=== PATIENT | male | born 1940 | race African-American/Black ===

== ENCOUNTER 2021-03-14 08:25 | Emergency (ER) | payer OTHER ==
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
--- NOTE | 2021-03-14 09:32 | RAD REPORT ---
EXAM DESCRIPTION: CT - Thorax Wo Con CLINICAL HISTORY: Chest pain fall injury;Pain COMPARISON: No comparisons FINDINGS: The lungs are clear. Small amount of right pleural fluid. No pneumothorax. Mildly to moderately displaced fractures of the right posterior tenth, eleventh and twelfth ribs. Non displaced hairline fracture of the right posterior ninth rib also likely present. Gallstones are present gallbladder. All CT scans are performed using dose optimization technique as appropriate and may include automated exposure control or mA/KV adjustment according to patient size. IMPRESSION: Right-sided posterior rib fractures as detailed above without pneumothorax.
--- NOTE | 2021-03-14 10:01 | ER ---
Nurse's Notes [facility] Name: Brian Manning Jr Age: 80 yrs Sex: Male : 1940 Arrival Date: 03/14/2021 Time: 08:28 Bed 18 Private MD: Jeannine Mahajan Diagnosis: Multiple fractures of ribs, right side Presentation: 03/14 08:43 Chief complaint: Patient states: L shoulder and R lateral chest wall pain after falling ss from standing position in restroom last night. Coronavirus screen: Client denies travel out of the [place] in the last 14 days. Ebola Screen: Patient denies exposure to infectious person. Patient denies travel to an Ebola-affected area in the 21 days before illness onset. Initial Sepsis Screen: Does the patient meet any 2 criteria? No. Patient's initial sepsis screen is negative. Does the patient have a suspected source of infection? No. Patient's initial sepsis screen is negative. Risk Assessment: Do you want to hurt yourself or someone else? Patient reports no desire to harm self or others. Onset of symptoms was March 13, 2021. 08:43 Method Of Arrival: Wheelchair ss 08:43 Acuity: COLLEEN 4 ss Triage Assessment: 08:45 General: Appears distressed, uncomfortable, Behavior is calm, cooperative, appropriate bp for age. Pain: Complains of pain in right lateral posterior chest and right lateral anterior chest. EENT: PT BLIND AT BASELINE. Neuro: No deficits noted. Cardiovascular: No deficits noted. Respiratory: No deficits noted. GI: No signs and/or symptoms were reported involving the gastrointestinal system. : No signs and/or symptoms were reported regarding the genitourinary system. Derm: No deficits noted. Musculoskeletal: No deficits noted. Historical: - Allergies: 08:46 No Known Allergies; ss - Immunization history:: Adult Immunizations up to date, Client reports receiving the 2nd dose of the Covid vaccine. - Social history:: Smoking status: Patient denies any tobacco usage or history of. Screenin:45 Abuse screen: Denies threats or abuse. Denies injuries from another. Nutritional bp screening: No deficits noted. Tuberculosis screening: No symptoms or risk factors identified. Fall Risk None identified. Assessment: 08:45 General: SEE TRIAGE NOTE. bp 10:19 Reassessment: PT D/C HOME VIA W/C WITH FAMILY, DX WITH RIB FX. bp Vital Signs: 08:43 BP 160 / 71; Pulse 71; Resp 16; Temp 99.7(O); Pulse Ox 100% on R/A; Height 6 ft. 3 in. ss (190.50 cm); Pain 10/10; 10:15 BP 149 / 73; Pulse 78; Resp 16; Temp 99.5; Pulse Ox 100% ; bp ED Course: 08:28 Patient arrived in ED. mr 08:29 Jeannine Mahajan is Private Physician. mr 08:31 Frank Ramires MD is Attending Physician. rn 08:31 [facility] jrDonaldo 08:34 Manish Castro, RN is Primary Nurse. bp 08:45 Patient has correct armband on for positive identification. Bed in low position. Call bp light in reach. Side rails up X2. 08:45 No provider procedures requiring assistance completed. Patient did not have IV access bp during this emergency room visit. 08:46 Triage completed. ss 08:46 Arm band placed on right wrist. ss 09:10 CT Chest Wo Con In Process Unspecified. EDMS 10:01 Jeannine Mahajan is Referral Physician. jr8 Administered Medications: No medications were administered Outcome: 10:01 Discharge ordered by . jrDonaldo 10:23 Discharged to home via wheelchair, with family. bp 10:23 Condition: stable 10:23 Discharge instructions given to patient, family, Instructed on discharge instructions, follow up and referral plans. Demonstrated understanding of instructions, follow-up care. 10:23 Patient left the ED. bp Signatures: Dispatcher [employer] EDTX Esha Long mr Frank Ramires MD MD rn Smirch, Shelby, RN RN Sonny Murray PA PA jr8 Manish Castro, VASILE RN bp
--- NOTE | 2021-03-14 10:02 | EDPHYS ---
Physician Documentation [facility] Name: Brian Manning Jr Age: 80 yrs Sex: Male : 1940 Arrival Date: 03/14/2021 Time: 08:28 Bed 18 Private MD: Jeannine Mahajan ED Physician Frank Ramires HPI: 03/14 09:11 This 80 yrs old Black Male presents to ER via Wheelchair with complaints of Fall Injury.jr8 09:11 Details of fall: The patient fell from an upright position, while standing. Onset: The jr8 symptoms/episode began/occurred acutely, last night. Associated injuries: The patient sustained injury to the chest, specifically the right lateral anterior chest and right lateral posterior chest, tenderness. Severity of symptoms: At their worst the symptoms were mild, in the emergency department the symptoms are unchanged. The patient has not experienced similar symptoms in the past. The patient has not recently seen a physician. Patient stated that he tripped causing mechanical fall in bathroom. Hit right side of ribs.. Pain since incident that is not getting better. Historical: - Allergies: 08:46 No Known Allergies; ss - Immunization history:: Adult Immunizations up to date, Client reports receiving the 2nd dose of the Covid vaccine. - Social history:: Smoking status: Patient denies any tobacco usage or history of. ROS: 09:11 Eyes: Negative for injury, pain, redness, and discharge, ENT: Negative for injury, jr8 pain, and discharge, Neck: Negative for injury, pain, and swelling, Respiratory: Negative for shortness of breath, cough, wheezing, and pleuritic chest pain, Abdomen/GI: Negative for abdominal pain, nausea, vomiting, diarrhea, and constipation, Back: Negative for injury and pain, MS/Extremity: Negative for injury and deformity, Skin: Negative for injury, rash, and discoloration, Neuro: Negative for headache, weakness, numbness, tingling, and seizure. 09:11 Cardiovascular: Positive for chest pain, with cough, with movement. Exam: 09:11 Constitutional: This is a well developed, well nourished patient who is awake, alert, jr8 and in no acute distress. Head/Face: Normocephalic, atraumatic. Neck: Trachea midline, no thyromegaly or masses palpated, and no cervical lymphadenopathy. Supple, full range of motion without nuchal rigidity, or vertebral point tenderness. No Meningismus. Cardiovascular: Regular rate and rhythm with a normal S1 and S2. No gallops, murmurs, or rubs. Normal PMI, no JVD. No pulse deficits. Respiratory: Lungs have equal breath sounds bilaterally, clear to auscultation and percussion. No rales, rhonchi or wheezes noted. No increased work of breathing, no retractions or nasal flaring. Abdomen/GI: Soft, non-tender, with normal bowel sounds. No distension or tympany. No guarding or rebound. No evidence of tenderness throughout. Back: No spinal tenderness. No costovertebral tenderness. Full range of motion. Skin: Warm, dry with normal turgor. Normal color with no rashes, no lesions, and no evidence of cellulitis. MS/ Extremity: Pulses equal, no cyanosis. Neurovascular intact. Full, normal range of motion. Neuro: Awake and alert, GCS 15, oriented to person, place, time, and situation. Cranial nerves II-XII grossly intact. Motor strength 5/5 in all extremities. Sensory grossly intact. Cerebellar exam normal. Normal gait. 09:11 Chest/axilla: Inspection: normal, Palpation: tenderness, that is moderate, of the right lateral anterior chest and right lateral posterior chest. Vital Signs: 08:43 BP 160 / 71; Pulse 71; Resp 16; Temp 99.7(O); Pulse Ox 100% on R/A; Height 6 ft. 3 in. ss (190.50 cm); Pain 10/10; 10:15 BP 149 / 73; Pulse 78; Resp 16; Temp 99.5; Pulse Ox 100% ; bp MDM: 08:32 Patient medically screened. jr8 10:01 Data reviewed: vital signs, nurses notes, radiologic studies, CT scan. Data jr8 interpreted: Pulse oximetry: on room air is 100 %. Interpretation: normal. Counseling: I had a detailed discussion with the patient and/or guardian regarding: the historical points, exam findings, and any diagnostic results supporting the discharge/admit diagnosis, radiology results, the need for outpatient follow up, a family practitioner, to return to the emergency department if symptoms worsen or persist or if there are any questions or concerns that arise at home. 07/12 08:45 Order name: CT Chest Wo Con; Complete Time: 09:33 jr8 03/14 10:02 Order name: Misc. Order: Incentive Spirometry; Complete Time: 10:19 jr8 Administered Medications: No medications were administered Disposition: 16:56 Co-signature as Attending Physician, Frank Ramires MD. rn Disposition Summary: 03/14/21 10:01 Discharge Ordered Location: Home jr Problem: new jr8 Symptoms: have improved jr8 Condition: Stable jr8 Diagnosis - Multiple fractures of ribs, right side jr8 Followup: jr8 - With: Jeannine Mahajan - When: 5 - 6 days - Reason: Recheck today's complaints, Continuance of care, Re-evaluation by your physician Discharge Instructions: - Discharge Summary Sheet jr8 - Rib Fracture jr8 Forms: - Medication Reconciliation Form jr8 - Thank You Letter jr8 - Antibiotic Education jr8 - Prescription Opioid Use jr8 Signatures: Dispatcher [employer] Frank Clancy MD MD rn Smirch, Shelby, RN RN ss Roszak, Josh, PA PA jr8
[2021-03-14 10:29] VITALS: O2SAT 100
[2021-03-14 10:30] VITALS: BP 149/73; TEMP 99.5
== END 2021-03-14 10:23 | disposition home or self-care (01) ==
LOC: ER 08:25
DX: S22.41XA Multiple fractures of ribs, right side, initial encounter for closed fracture (principal); W01.198A Fall on same level from slipping, tripping and stumbling with subsequent striking against other object, initial encounter
CPT/HCPCS: 71250; 99283

== ENCOUNTER 2021-11-19 16:21 | Emergency (ER) | payer OTHER ==
--- OUTSIDE RECORDS SUMMARY | 2021-11-19 16:25 | XMS REPORT | Continuity of Care Document ---
:1940 Author Organization [facility] t Address [address] [place] [address] Care Team Providers Name Role Phone Michelle Rhodes Attending Clinician Unavailable Problems Condition Condition Condition Status Onset Resolution Last Treating Co mments Source Name Details Category Date Date Treatment Clinician Date Uncontroll Uncontroll Problem Active C HI St ed type 2 ed type 2 Luke s - diabetes diabetes Memori a mellitus mellitus l with with Outpati hyperglyce hyperglyce en t [facility] History of History of Problem Active [...] [place] kes - on on [facility] Diabetes Diabetes Problem Active [facility] [place] [facility] Wandering Wandering Problem [facility] 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 [facility] - eyes eyes Memoria l Outpati ent Clinics 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 [facility] s - [facility] Medicare Medicare Diagnosis Active [facility] annual annual [facility] - wellness wellness Memori a visit, visit, l subsequent subsequent Ou tpati ent Clinics Allergies, Adverse Reactions, Alerts This [...] 00:00: (dispense Memoria 00 lancets l formulary Outpati to ent insurance) Clinics Blood Blood Yes Michelle as [facility] Glucose Glucose 1-09 Millender directed [facility] - Monitor Monitor 00:00: (DISPENSE Me moria 00 BLOOD l GLUCOSE Outpati MONITOR ent FORMULARY Clinics TO INSURANCE) Furosemide Furosemide 2018-09 Yes Michelle [address] [facility] 0-30 [place] as needed [facility] - 00:00: for leg Memoria 00 [facility] Lisinopril Lisinopril 2018-09 Yes Michelle [address] [facility] 0-09 Millender [facility] - 00[facility]00: Memoria 00 [facility] GlipiZIDE GlipiZIDE Yes Michelle [address] Millender [facility] - [facility] l [facility] ent Clinics Metformin Metformin Yes Michelle [address] HCl HCl Millender with a Lukes - meal [facility] atorvastati atorvastati 2020- No Michelle [address] [facility] n n -14 Millender in evening William es - 00:00 Memoria :00 [facility] Procedures This patient has no known procedures. Encounters Start End Encounter Admission Attending Care Care Encounter Source Date/Time Date/Time Type Type Clinicians Facility Department ID [facility] [id number] Michelle [id number] [facility] ent Clinics 2021-09-[address] [facility] [id number] 11:17:13 Michelle [id number] [facility] Clinics 2021-09-28 Outpatient CHANNING Rhodes [facility] [id number] [facility] 11:07:29 Michelle [id number] [facility] Clin[facility] 2021-09-28 Outpatient CHANNING Rhodes [facility] [id number] [facility] 10:59:22 Michelle [id number] [facility] 2021-09-28 Outpatient CHANNING Rhodes [facility] [id number] [facility] 10:59:02 Michelle [id number] [facility] 2020-05-17 2020-05-17 [facility] [id number] 09:20:00 09:20:00 t [facility] l Medicine Outpati ent Clinics 2020-05-17 2020-05-17 [facility] [id number] 09:00:00 09:00:00 t [facility] Medicine Outpati ent Clinics 2020-05-13 2020-05-13 [facility] [id number] 09:46:00 09:46:00 t [employer] [place] [facility] l Medicine Outpati ent Clinics 2019-12-11 2019-12-11 [facility] [id number] 11:30:00 11:30:00 t [facility] Medicine Outpati ent Clinics 2019-09-11 2019-09-11 [facility] [id number] 10:30:00 10:30:00 t [facility] Medicine Outpati ent Clinics 2019-07-13 2019-07-13 [facility] [id number] 23:31:00 23:31:00 t [facility] Medicine Outpati ent Clinics 2019-07-02 2019-07-02 [facility] [id number] 15:00:00 15:00:00 t [facility] Medicine Outpati ent Clinics 2019-06-11 2019-06-11 [facility] [id number] 09:00:00 09:00:00 [facility] Medicine Outpati ent Clinics Results This patient has no known results.
[2021-11-19 17:12] LABS: Absolute Lymphocytes (CBC) 1.2 K/uL (0.7-4.9); Hematocrit 34.5 % (39.6-49.0); Lymphocytes % 20.5 % (15.3-44.8); MPV 7.5 fL (7.6-11.3); RBC Red Blood Cell Count 3.92 M/uL (4.33-5.43)
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
[2021-11-19 17:27] LABS: Potassium 3.8 mmol/L (3.5-5.1)
--- NOTE | 2021-11-19 17:58 | RAD REPORT ---
EXAM DESCRIPTION: RAD - Humerus Left - 11/19/2021 5:43 pm CLINICAL HISTORY: PAIN COMPARISON: No comparisons FINDINGS: Left surgical neck fracture of the humerus. No other fracture of the humerus identified. IMPRESSION: Left surgical neck humerus fracture.
--- NOTE | 2021-11-19 17:58 | RAD REPORT ---
EXAM DESCRIPTION: RAD - Shoulder Left 2 View - 11/19/2021 5:43 pm CLINICAL HISTORY: PAIN COMPARISON: No comparisons FINDINGS/IMPRESSION: Left surgical neck of the humerus fracture with approximately 1/3 shaft width o f medial displacement. No dislocation is identified. No other fractures.
--- NOTE | 2021-11-19 18:30 | EDPHYS ---
Physician Documentation [facility] Name: Brian Manning Jr Age: 81 yrs Sex: Male : 1940 Arrival Date: 11/19/2021 Time: 16:28 Bed 17 Private MD: ED Physician Shahida Mills HPI: 11/19 16:43 This 81 yrs old Black Male presents to ER via EMS with complaints of Fall injury. pm1 16:43 The patient or guardian reports abrasion. The complaints affect the forehead. Context pm1 of injury: The problem was sustained at home, resulted from Fall out of chair. Onset: The symptoms/episode began/occurred just prior to arrival. Associated signs and symptoms: Loss of consciousness: This patient did not experience any loss of consciousness. Pertinent positives: headache, Pertinent negatives: nausea, neck pain, vomiting, chest pain, shortness of breath, LOC. Severity of symptoms:. The patient has not experienced similar symptoms in the past. The patient has not recently seen a physician. Patient is also complaining of left shoulder pain. Patient fell on left side while sitting on his chair resulting in abrasion to forehead and left shoulder pain. Historical: - Allergies: 11/20 03:57 No Known Allergies; sv1 - Immunization history:: Adult Immunizations up to date, . - Social history:: Smoking status: unknown. ROS: 11/19 16:43 Constitutional: Negative for fever, chills, and weight loss, Neck: Negative for injury, pm1 pain, and swelling, Cardiovascular: Negative for chest pain, palpitations, and edema, Respiratory: Negative for shortness of breath, cough, wheezing, and pleuritic chest pain, Abdomen/GI: Negative for abdominal pain, nausea, vomiting, diarrhea, and constipation. Skin: Negative for injury, rash, and discoloration, Neuro: Negative for headache, weakness, numbness, tingling, and seizure. MS/extremity: Positive for pain, of the forehead and left shoulder. All other systems are negative. Exam: 16:43 Constitutional: This is a well developed, well nourished patient who is awake, alert, pm1 and in no acute distress. 16:43 Back: No spinal tenderness. No costovertebral tenderness. Full range of motion. Skin: Warm, dry with normal turgor. Normal color with no rashes, no lesions, and no evidence of cellulitis. 16:43 Head/face: Noted is no obvious of injury or deformity except abrasion(s), that are mild, of the forehead. 16:43 Neck: Exam negative for acute changes, External neck: is normal, no acute changes, C-spine: vertebral tenderness, is not appreciated. 16:43 Chest/axilla: Exam negative for acute changes, Inspection: normal, Palpation: is normal, no crepitus, no tenderness. 16:43 Cardiovascular: Exam negative for acute changes, Rate: normal, Rhythm: regular, Pulses: no pulse deficits are appreciated, Heart sounds: normal, normal S1and S2. 16:43 Respiratory: Exam negative for acute changes, respiratory distress, shortness of breath, Breath sounds: are clear throughout. 16:43 Abdomen/GI: Inspection: abdomen appears normal, Palpation: abdomen is soft and non-tender, in all quadrants. 16:43 Musculoskeletal/extremity: Extremities: grossly normal except: noted in the anterior aspect of left shoulder: tenderness. 16:43 Neuro: Exam negative for acute changes, Orientation: is normal, Mentation: is normal, Motor: is normal, moves all fours. Vital Signs: 16:28 BP 167 / 69; Resp 16; Temp 97.8; Pulse Ox 98% ; Weight 81.65 kg; Height 5 ft. 10 in. cb5 (177.80 cm); Pain 2/10; 19:30 BP 156 / 78 LA Sitting (auto/reg); Pulse 56 MON; Resp 16 S; Pulse Ox 100% on R/A; Pain sv1 6/10; 16:28 Body Mass Index 25.83 (81.65 kg, 177.80 cm) cb5 Lizabeth Coma Score: 16:43 Eye Response: spontaneous(4). Verbal Response: oriented(5). Motor Response: obeys pm1 commands(6). Total: 15. MDM: 16:31 Patient medically screened. pm1 18:28 Data reviewed: vital signs. Data interpreted: Pulse oximetry: on room air is 98 %. pm1 Interpretation: normal. Counseling: I had a detailed discussion with the patient and/or guardian regarding: the historical points, exam findings, and any diagnostic results supporting the discharge/admit diagnosis, lab results, radiology results, the need for outpatient follow up, a orthopedic surgeon, to return to the emergency department if symptoms worsen or persist or if there are any questions or concerns that arise at home. 11/19 16:42 Order name: CBC with Diff pm1 11/19 16:42 Order name: BMP; Complete Time: 17:52 pm1 11/19 16:42 Order name: CT Head Brain wo Cont; Complete Time: 17:52 pm1 11/19 16:42 Order name: Shoulder Left (2 View) XRAY; Complete Time: 18:04 pm1 11/19 16:42 Order name: CBC with Automated Diff; Complete Time: 17:52 EDMS 11/19 17:20 Order name: Humerus Left XRAY; Complete Time: 18:04 pm1 11/19 16:42 Order name: IV Saline Lock; Complete Time: 16:56 pm1 11/19 16:42 Order name: EKG; Complete Time: 16:43 pm1 11/19 16:42 Order name: EKG - Nurse/Tech; Complete Time: 16:56 pm1 11/19 18:05 Order name: Sling; Complete Time: 03:54 pm1 11/19 18:27 Order name: Wound Care; Complete Time: 03:53 pm1 Administered Medications: 18:51 Drug: Tetanus-Diphtheria Toxoid Adult 0.5 ml {Cold Work Operator: [employer]. Exp: cb5 01/21/2023. Lot #: [id number]. } Route: IM; Site: left deltoid; 11/20 03:53 Follow up: Response: No adverse reaction 1 11/19 18:51 Drug: NS 0.9% 500 ml Route: IV; Rate: bolus; Site: left antecubital; [facility] 11/20 03:53 Follow up: IV Status: Completed infusion 1 11/19 18:51 Drug: Tylenol #3 (300 mg-30 mg) 1 tablet Route: PO; [facility] 11/20 03:53 Follow up: Response: No adverse reaction; Pain is decreased sv1 Disposition Summary: 11/19/21 18:30 Discharge Ordered Location: Home pm1 Problem: new pm1 Symptoms: have improved pm1 Condition: Stable pm1 Diagnosis - Fracture of upper end of humerus pm1 - Abrasion of unspecified part of head - forehead pm1 - Fall from chair, initial encounter pm1 - Unspecified superficial injury of other part of head, initial encounter pm1 Followup: pm1 - With: Emergency Department - When: As needed - Reason: Worsening of condition Followup: pm1 - With: Private Physician - When: 2 - 3 days - Reason: Recheck today's complaints, Continuance of care, Re-evaluation by your physician Forms: - Medication Reconciliation Form pm1 - Thank You Letter pm1 - Antibiotic Education pm1 - Prescription Opioid Use pm1 Signatures: Dispatcher [employer] Jb Cruz NP SUBSEA ENGINEER pm1 Terrence Mcmahon, RN RN sv1 Jackelin Romero, RN RN cb5
--- NOTE | 2021-11-19 18:30 | ER ---
Nurse's Notes [facility] Name: Brian Manning Jr Age: 81 yrs Sex: Male : 1940 Arrival Date: 11/19/2021 Time: 16:28 Bed 17 Private MD: Diagnosis: Fracture of upper end of humerus;Abrasion of unspecified part of head-forehead;Fall from chair, initial encounter;Unspecified superficial injury of other part of head, initial encounter Presentation: 11/19 16:28 Chief complaint: EMS states: laceration to forehead, pain left shoulder. pt fell out of cb5 chair while sitting in it outside. Coronavirus screen: Client denies travel out of the [place] in the last 14 days. At this time, the client does not indicate any symptoms associated with coronavirus-19. Initial Sepsis Screen: Does the patient meet any 2 criteria? No. Patient's initial sepsis screen is negative. Does the patient have a suspected source of infection? No. Patient's initial sepsis screen is negative. Risk Assessment: Do you want to hurt yourself or someone else? Patient reports no desire to harm self or others. 16:28 Method Of Arrival: EMS cb5 16:28 Acuity: COLLEEN 3 cb5 16:44 Ebola Screen: Patient denies travel to an Ebola-affected area in the 21 days before cb5 illness onset. 11/20 03:57 Onset of symptoms was November 19, 2021. 1 03:58 Onset of symptoms is unknown. 1 03:58 Onset of symptoms was November 19, 2021 at 19:30. sv1 Triage Assessment: 11/19 16:28 General: Appears uncomfortable, well groomed, Behavior is calm, cooperative, cb5 appropriate for age. Pain: Complains of pain in left shoulder Pain currently is 4 out of 10 on a pain scale. Historical: - Allergies: 11/20 03:57 No Known Allergies; sv1 - Immunization history:: Adult Immunizations up to date, . - Social history:: Smoking status: unknown. Screenin/19 16:41 Abuse screen: Denies threats or abuse. Denies injuries from another. Nutritional cb5 screening: No deficits noted. Tuberculosis screening: No symptoms or risk factors identified. 16:44 Fall Risk Fall in past 12 months (25 points). 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 Assessment: 16:30 General: Appears comfortable, well groomed, Behavior is calm, cooperative, appropriate cb5 for age. Pain: Complains of pain in left shoulder Pain currently is 4 out of 10 on a pain scale. Neuro: Level of Consciousness is awake, alert, obeys commands, Oriented to person, place, time, situation, Appropriate for age pt is legally blind. Cardiovascular: No deficits noted. Respiratory: No deficits noted. GI: No deficits noted. Abdomen is Bowel sounds present X 4 quads. : No deficits noted. EENT: No deficits noted. Derm: No deficits noted. Derm: small laceration to forehead. Musculoskeletal: Reports pain in left shoulder laceration to forehead. 18:03 Reassessment: Patient and/or family updated on plan of care and expected duration. Pain cb5 level reassessed. Vital Signs: 16:28 BP 167 / 69; Resp 16; Temp 97.8; Pulse Ox 98% ; Weight 81.65 kg; Height 5 ft. 10 in. cb5 (177.80 cm); Pain 2/10; 19:30 BP 156 / 78 LA Sitting (auto/reg); Pulse 56 MON; Resp 16 S; Pulse Ox 100% on R/A; Pain sv1 6/10; 16:28 Body Mass Index 25.83 (81.65 kg, 177.80 cm) cb5 [place] Coma Score: 16:43 Eye Response: spontaneous(4). Verbal Response: oriented(5). Motor Response: obeys pm1 commands(6). Total: 15. ED Course: 16:28 Patient arrived in ED. cb5 16:28 Jackelin Romero, VASILE is Primary Nurse. cb5 16:29 Jb Galeana NP is PHCP. pm1 16:29 Shahida Mills MD is Attending Physician. pm1 16:29 Patient has correct armband on for positive identification. Bed in low position. Call 5 light in reach. Side rails up X2. Adult w/ patient. Warm blanket given. Pulse ox on. NIBP on. 16:37 Maintain EMS IV. Dressing intact. Good blood return noted. Site clean \T\ dry. 5 16:38 Triage completed. cb5 16:43 Arm band placed on right wrist. cb5 16:56 CBC with Diff Sent. cb5 16:57 CBC with Automated Diff Sent. cb5 16:57 BMP Sent. cb5 17:08 CT Head Brain wo Cont In Process Unspecified. EDMS 17:43 Shoulder Left (2 View) XRAY In Process Unspecified. EDMS 17:43 Humerus Left XRAY In Process Unspecified. EDMS 19:04 Report given to Shana Oleary cb5 19:30 No provider procedures requiring assistance completed. IV discontinued. sv1 Administered Medications: 18:51 Drug: Tetanus-Diphtheria Toxoid Adult 0.5 ml {Plush Weaver: [employer]. Exp: cb5 01/21/2023. Lot #: [id number]. } Route: IM; Site: left deltoid; 11/20 03:53 Follow up: Response: No adverse reaction sv1 11/19 18:51 Drug: NS 0.9% 500 ml Route: IV; Rate: bolus; Site: left antecubital; cb5 11/20 03:53 Follow up: IV Status: Completed infusion sv1 11/19 18:51 Drug: Tylenol #3 (300 mg-30 mg) 1 tablet Route: PO; [facility] 11/20 03:53 Follow up: Response: No adverse reaction; Pain is decreased sv1 Outcome: 11/19 18:30 Discharge ordered by MD. pm1 19:30 Discharged to home via wheelchair. sv1 19:30 Condition: improved 19:30 Discharge instructions given to patient, family. 19:50 Patient left the ED. lp1 Signatures: Dispatcher [employer] EDMS Ara Harry RN RN lp1 Jb Galeana, SPORTS INSTRUCTOR SPORTS INSTRUCTOR pm1 Adela La [facility] Terrence Mcmahon RN RN sv1 Jackelin Romero, VASILE RN cb5
[2021-11-19] MEDS ORDERED: CODEINE 30MG/APAP 300MG TAB ONE (18:53)
[2021-11-19] MEDS ORDERED: TETANUS & DIPHTHERIA TOX,ADULT 0.5 ML VIAL ONE (18:53)
[2021-11-19] MEDS ORDERED: NA CHLORIDE 0.9% 500 ML ONE (18:53)
[2021-11-19 19:56] VITALS: BP 167/69; TEMP 97.8; O2SAT 98
--- NOTE | 2021-11-21 08:22 | EKG ---
Test Date: 2021-11-19 Test Time: 16:48:03 Development Technologist: MEASUREMENT RESULTS: Intervals: Rate: 65 AK: 228 QRSD: 102 QT: 422 QTc: 438 [place]: P: 70 AK: 228 QRS: 45 T: 76 INTERPRETIVE STATEMENTS: Sinus rhythm with 1st degree AV block Otherwise normal ECG No previous ECG available for comparison Electronically Signed On 11-21-21 08:20:00 CDT by Kashif Bowles
== END 2021-11-19 19:50 | disposition home or self-care (01) ==
LOC: ER 16:21
DX: S42.202A Unspecified fracture of upper end of left humerus, initial encounter for closed fracture (principal); S00.81XA Abrasion of other part of head, initial encounter; W07.XXXA Fall from chair, initial encounter; Z23 Encounter for immunization
CPT/HCPCS: 96361; 93005; 85025; 80048; 36415; 70450; 73060; 73030; 90471; 90714; 96360; 99284; J7040

== ENCOUNTER 2023-01-30 05:58 | Day surgery (SDC) | payer OTHER ==
[2023-01-25 11:06] LABS: Absolute Lymphocytes (CBC) 1.5 K/uL (0.7-4.9); Hematocrit 36.8 % (39.6-49.0); Lymphocytes % 22.9 % (15.3-44.8); MCV 88.8 fL (80-100); RBC Red Blood Cell Count 4.14 M/uL (4.33-5.43)
[2023-01-25 11:08] LABS: Specific Gravity 1.018 (1.005-1.030); Urine Bacteria None Seen /HPF (<20); Urine Bilirubin NEGATIVE (Negative); Urine Blood Negative (Negative); Urine Clarity Clear (Clear); Urine Color Light-Yellow (Yellow); Urine Glucose NEGATIVE (Negative); Urine Mucus Slight /HPF (None Seen); Urine Protein NEGATIVE (Negative); Urine Urobilinogen 1+ (Normal); Urine pH 6.5 (5.0-7.0)
[2023-01-25 11:25] LABS: Potassium 4.2 mEq/L (3.5-5.1)
--- NOTE | 2023-01-25 11:56 | RAD REPORT ---
EXAM DESCRIPTION: RAD - Chest Pa And Lat (2 Views) - 01/25/2023 11:06 am CLINICAL HISTORY: pre op pending circumcision. Hypertension COMPARISON: Thorax Wo Con dated 03/14/2021 TECHNIQUE: PA and lateral views of the chest were obtained. FINDINGS: The lungs are clear. Heart size is normal and central vasculature is within normal limits. No pleural effusion or pneumothorax seen. No acute bony finding noted. Sizable calcified mediastinal lymph nodes again seen. IMPRESSION: No acute cardiopulmonary process.
--- NOTE | 2023-01-25 12:30 | EKG ---
Test Date: 2023-01-25 Test Time: 10:17:39 Train Station Server: ERIC MEASUREMENT RESULTS: Intervals: Rate: 45 MI: 208 QRSD: 92 QT: 406 QTc: 351 Mclean: P: 51 MI: 208 QRS: 48 T: 69 INTERPRETIVE STATEMENTS: Marked sinus bradycardia Abnormal ECG Compared to ECG 11/19/2021 16:48:03 Sinus rhythm no longer present First degree AV block no longer present Electronically Signed On 01-25-23 12:29:56 CDT by Kashif Bowles
[2023-01-30] MEDS ORDERED: CEFAZOLIN SODIUM 2 GM/VIAL ONE (06:25)
[2023-01-30] MEDS ORDERED: NA CHLORIDE 0.9% 1,000 ML ONE (06:25)
[2023-01-30] MEDS ORDERED: LIDOCAINE 1% MPF 30 ML VIAL ONE (07:23)
[2023-01-30] MEDS ORDERED: BACITRACIN OINTMENT 14 GM TUBE TOP ONE (07:23)
[2023-01-30] MEDS ORDERED: BUPIVACAINE 0.25% PF 30 ML VIAL ONE (07:23)
[2023-01-30] MEDS ORDERED: LIDOCAINE 2% MPF 5 ML VIAL ONE (07:25)
[2023-01-30] MEDS ORDERED: FENTANYL CITR 100 MCG/2 ML ONE (07:25)
[2023-01-30] MEDS ORDERED: propofoL 200 MG/20 ML VIAL IV ONE (07:25)
[2023-01-30] MEDS ORDERED: ONDANSETRON 4 MG/2 ML VIAL ONE (07:26)
[2023-01-30] MEDS ORDERED: GLYCOPYRROLATE 0.2 MG/ML SYR ONE ×2 (07:50→07:53)
[2023-01-30] MEDS ORDERED: LABETALOL 20 MG/4ML SYRINGE IV ONE (09:01)
[2023-01-30 09:27] VITALS: O2SAT 100
[2023-01-30] MEDS ORDERED: HYDRALAZINE HCL 20 MG/ML VIAL ONE (09:30)
[2023-01-30] MEDS ORDERED: CODEINE 30MG/APAP 300MG TAB PO PRN (09:33)
[2023-01-30 09:48] VITALS: BP 169/78; TEMP 97.9
--- NOTE | 2023-01-30 09:58 | OP ---
Surgeon: CHRISTINA ZHAO Preoperative Diagnosis: Penile foreskin lesions. Postoperative Diagnosis: Penile foreskin lesions. Operation: 1.Sleeve circumcision. 2.Penile block. Indication For Procedure: Mr. Manning presented to the Urology Clinic and was incidentally observed to have some foreskin lesions suspicious for potential development of squamous cell carcinoma for at least a premalignant lesion. He was initially referred for issues with lower urinary tract obstructi on and urge incontinence, which likely contributed to the development of these foreskin lesions since he was uncircumcised and blind. He was counseled on the recommendation for circumcision to remove t he lesions and prevent the development of squamous cell carcinoma of the penis, if it is not already present. Description Of Procedure: The patient was consented in the preoperative holding area before being tr ansferred to the operative suite where general anesthesia was induced. He was given Ancef 2 g IV ant imicrobial prophylaxis and pneumo boots were provided for DVT prophylaxis. He was placed supine on t he procedure table, and his genitalia was prepped with Betadine and draped in standard fashion. A pe nile block was given initially with a subcutaneous and then infrapubic injection of a mixture of 1% l idocaine and 0.25% Marcaine, 50:50 mixture, and 10 cc was injected in the infrapubic midline with an additional 10 cc into each neurovascular bundle distribution to provide the penile block. After the block was successfully applied, we then marked a line in the shaft skin proximal to the lesions seen in the shaft skin, and an additional circumferential marking was performed in the preputial margin di stal to the penile lesion seen in that location. The intervening skin was divided in the dorsal midl ine and then excised from the underlying dartos layers and Weber fascia and that skin was sent for pat hologic analysis. I then fulgurated the entirety of the subcutaneous tissues in order to achieve com plete hemostasis using pinpoint fulguration with the Adson forceps and Bovie electrocautery. Once co mplete hemostasis had been achieved and no bleeding vessels were observed, I then irrigated the tissu es to ensure no additional bleeding was noted, and when the area was deemed to be completely hemostat ic, I then began the reconstruction. Quadrant sutures of 3-0 chromic were then performed before the intervening skin was closed in a running horizontal mattress fashion of 3-0 chromic. In the end, the cosmetic result was excellent and all skin lesions had been excised. The phallus was hemostatic, an d so wet-to-dry was used to cleanse away the Betadine before bacitracin was applied to the incision l ine, and a Dorothy and Coban were then applied for gentle pressure dressing. The patient was then awak ened from general anesthesia, transferred to a stretcher, and then transferred to the recovery room i n good condition. Complications: None. Discharge Disposition: We will have him follow up with me in the Urology Clinic tomorrow to remove t he dressing and perform an interval assessment since the patient is blind and otherwise not able to o bserve the potential development of any complications like penile hematoma. Subsequent followup will be determined to occur about 10-14 days later once we have the results of the pathology. PENNY/DANK Voice ID: [id number] Report ID: [id number]
== END 2023-01-30 10:17 | disposition home or self-care (01) ==
LOC: OR 05:58
PROVIDERS: ATTEND Urology
PROC: 0VTTXZZ Resection of Prepuce, External Approach (ICD-10-PCS; principal; 2023-01-30 07:30)
DX: N48.0 Leukoplakia of penis (principal); N40.1 Benign prostatic hyperplasia with lower urinary tract symptoms; R31.29 Other microscopic hematuria; E78.5 Hyperlipidemia, unspecified; Z79.899 Other long term (current) drug therapy; Z86.73 Personal history of transient ischemic attack (TIA), and cerebral infarction without residual deficits; Z80.42 Family history of malignant neoplasm of prostate; Z83.3 Family history of diabetes mellitus; Z82.49 Family history of ischemic heart disease and other diseases of the circulatory system; Z82.3 Family history of stroke
CPT/HCPCS: 93005; 85025; 81001; 80048; 36415; 82947 ×2; 88304; 71046; 54161; J0360; J2704; J2001 ×2; J3010; J2405; J7030

== ENCOUNTER 2023-03-10 17:33 | Inpatient (IN) | payer OTHER ==
--- OUTSIDE RECORDS SUMMARY | 2023-03-10 17:36 | XMS REPORT | Continuity of Care Document ---
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 Forgetfuln Forgetfuln Problem Active C ommon ess ess [facility] Peripheral Peripheral Problem Active C ommon edema edema [facility] Essential Essential Problem Active Com mon hypertensi hypertensi Sp danita on on [facility] Diabetes Diabetes Problem Active Commo n 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 Imbalance Imbalance Problem Active Com mon [facility] Urinary Urinary Problem Active Common incontinen incontinen Sp danita ce, ce, - [facility] unspecifie unspecifie St d type d type [facility] Frequent Frequent Problem Active Commo n falls falls [facility] Wandering Wandering Problem Active Com mon 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 Medications Ordered Filled Start Stop Current Ordering Indication Dosage Frequency Signature Comments Components Source Medication Medication Date Date Medication? Clinician (SIG) Name Name Blood Blood Yes Michelle as Common Glucose Glucose 1-09 Millender directed Spirit Test Strip Test Strip 00:00: (DISPENSE - [facility] BLOOD [facility] TEST Medical STRIPS [place] [employer] TO INSURANCE) Lancets Lancets Yes Michelle as Common -09 Millender directed Spirit 00:00: (dispense - [facility] lancets [facility] to Medical insurance) Center Blood Blood Yes Michelle as Common Glucose Glucose 1-09 Millender directed [facility] Monitor Monitor 00:00: (DISPENSE - [facility] BLOOD [facility] [place] [facility] Furosemide Furosemide 2018-09 Yes Michelle 1 tablet Common 0-30 Millender as needed Spiri t 00:00: for leg - [facility] 00 swelling [facility] Lisinopril Lisinopril 2018-09 Yes Michelle 1 tablet Common 0-09 Millender Spirit 00:00: - [facility] 00 [facility] GlipiZIDE GlipiZIDE Yes Michelle 1 tablet Common Millender [facility] Metformin Metformin Yes Michelle 1 tablet Common HCl HCl Millender with a [facility] meal [facility] atorvastati atorvastati No Michelle 1 tablet Common n n 01-14 Millender in evening Spi rit 00:00 - [facility]I :00 [facility] Procedures This patient has no known procedures. Encounters Start End Encounter Admission Attending Care Care Encounter Source Date/Time Date/Time Type Type Clinicians Facility Department ID 2022-11-02 Outpatient Keyshawn [facility] [id number] Common 16:05:00 Nae [id number] [facility] 2021-09-28 Outpatient Meagan [facility] [id number] Common 11:17:35 Michelle [id number] [facility] 2021-09-28 [facility] [id number] Common 11:17:13 Michelle [id number] [facility] 2021-09-28 Outpatient CHANNING Rhodes [facility] [id number] Common 11:07:29 Michelle [id number] [facility] 2021-09-28 Outpatient CHANNING Rhodes [facility] [id number] Common 10:59:22 Michelle [id number] [facility] 2021-09-28 Outpatient CHANNING Rhodes [facility] [id number] Common 10:59:02 Michelle [id number] [facility] 2023-02-20 2023-02-20 Outpatient [facility] [id number] Pasquale 10:23:57 10:23:57 0620 Damian Jean 2023-02-14 2023-02-14 Outpatient [facility] [id number] Pasquael 09:35:51 09:35:51 0614 Damian Jean 2020-05-17 2020-05-17 [facility] [id number] Common 09:20:00 09:20:00 t [place] [address] [facility] 2020-05-17 2020-05-17 [facility] [id number] Common 09:00:00 09:00:[address] [facility] [address] [facility] 2020-05-13 2020-05-13 Outpatient [facility] [id number] Common 09:46:00 09:46:00 t [employer] [address] [facility] 2019-12-11 2019-12-11 Outpatient [facility] [id number] Common 11:30:00 11:30:[address] [facility] [address] [facility] 2019-09-11 2019-09-11 Outpatient [facility] [id number] Common 10:30:00 10:30:[address] [facility] [address] [facility] 2019-07-13 2019-07-13 Outpatient [facility] [id number] Common 23:31:00 23:31:[address] [facility] [address] [facility] 2019-07-02 2019-07-02 Outpatient [facility] [id number] Common 15:00:00 15:00:00 [facility] [address] [facility] 2019-06-11 2019-06-11 Outpatient Miranda James [id number] Common 09:00:00 09:00:00 [facility] [address] [facility] Results This patient has no known results.
[2023-03-10 18:24] LABS: Absolute Lymphocytes (CBC) 1.1 K/uL (0.7-4.9); Hematocrit 33.4 % (39.6-49.0); Lymphocytes % 16.3 % (15.3-44.8); MCV 89.6 fL (80-100); MPV 10.5 fL (7.6-11.3); RBC Red Blood Cell Count 3.73 M/uL (4.33-5.43)
--- NOTE | 2023-03-10 18:24 | RAD REPORT ---
EXAM DESCRIPTION: Shannon Single View03/10/2023 6:05 pm CLINICAL HISTORY: Shortness of breath COMPARISON: January 2020. FINDINGS: The lungs appear clear of acute infiltrate. The heart is normal size IMPRESSION: No acute abnormalities displayed
--- NOTE | 2023-03-10 18:44 | RAD REPORT ---
EXAM DESCRIPTION: USExtrem Venous W Compress Bil03/10/2023 6:36 pm CLINICAL HISTORY: Leg swelling COMPARISON: none FINDINGS: The common femoral, superficial femoral, greater saphenous, popliteal and posterior tibial veins bilaterally are compressible and demonstrate augmentation. Doppler demonstrates good flow. Grayscale, color and spectral analysis performed on all vessels IMPRESSION: No evidence of deep venous thrombosis involving either lower extremity.
[2023-03-10 18:50] LABS: Magnesium 3.4 mg/dL (1.6-2.4); Troponin High Sensitivity 48.5 pg/mL (<58.9)
--- NOTE | 2023-03-10 19:27 | ER ---
Nurse's Notes [facility] Name: Brian Manning Jr Age: 82 yrs Sex: Male : 1940 Arrival Date: 03/10/2023 Time: 17:33 Bed 16 Private MD: Diagnosis: Acute kidney failure, unspecified;Hyperosmolality and hypernatremia;Hypokalemia;Other cholelithiasis without obstruction Presentation: 03/10 17:39 Chief complaint: EMS states: pts home health nurse came by today and noticed LANCE LE kc6 swelling. called PCP and he advised family to call 911 for CHF eval. pt reports no complaints. Coronavirus screen: At this time, the client does not indicate any symptoms associated with coronavirus-19. Ebola Screen: No symptoms or risks identified at this time. Initial Sepsis Screen: Does the patient meet any 2 criteria? No. Patient's initial sepsis screen is negative. Does the patient have a suspected source of infection? No. Patient's initial sepsis screen is negative. Risk Assessment: Do you want to hurt yourself or someone else? Patient reports no desire to harm self or others. Onset of symptoms was March 10, 2023. 17:39 Method Of Arrival: EMS: [facility] kc6 17:39 Acuity: COLLEEN 3 kc6 Triage Assessment: 17:41 General: Appears in no apparent distress. comfortable, Behavior is calm, cooperative, kc6 appropriate for age. Pain: Denies pain. EENT: No signs and/or symptoms were reported regarding the EENT system. Neuro: [place] Agitation-Sedation Scale (RASS): 0 - Alert and Calm Level of Consciousness is awake, alert, obeys commands, Oriented to person, place, time, situation, Appropriate for age. Cardiovascular: Denies chest pain, shortness of breath, Capillary refill < 3 seconds Edema is 3+ to left midcalf, left ankle, right midcalf and right ankle pitting to left midcalf, left ankle, right midcalf and right ankle Rhythm is sinus bradycardia. Respiratory: Airway is patent Trachea midline Respiratory effort is even, unlabored, Respiratory pattern is regular, symmetrical. GI: No signs and/or symptoms were reported involving the gastrointestinal system. : No signs and/or symptoms were reported regarding the genitourinary system. Derm: No signs and/or symptoms reported regarding the dermatologic system. Skin is intact, is healthy with good turgor, Skin is pink, warm \T\ dry. Musculoskeletal: No signs and/or symptoms reported regarding the musculoskeletal system. Circulation, motion, and sensation intact. Capillary refill < 3 seconds, Range of motion: intact in all extremities. Historical: - Allergies: 17:41 No Known Allergies; kc6 - PMHx: 17:41 Hypercholesterolemia; Anxiety; PTSD; blind in both eyes; hard of hearing; kc6 - PSHx: 17:41 None; kc6 - Immunization history:: Client reports receiving the 2nd dose of the Covid vaccine, Flu vaccine is up to date. - Social history:: Smoking status: Patient denies any tobacco usage or history of. Screenin:43 [facility] ED Fall Risk Assessment (Adult) History of falling in the last 3 months, kc6 including since admission No falls in past 3 months (0 pts) Confusion or Disorientation No (0 pts) Intoxicated or Sedated No (0 pts) Impaired Gait No (0 pts) Mobility Assist Device Used No (0 pt) Altered Elimination No (0 pt) Score/Fall Risk Level 0 - 2 = Low Risk Oriented to surroundings, Maintained a safe environment, Educated pt \T\ family on fall prevention, incl call for assistance when getting out of bed, Assessed \T\ reinforced patient's understanding of fall precautions, Hourly rounding (assess needs \T\ fall precautionary measures) done. Abuse screen: Denies threats or abuse. Denies injuries from another. Nutritional screening: No deficits noted. Tuberculosis screening: No symptoms or risk factors identified. Assessment: 17:43 Reassessment: please see triage assessment. kc6 18:41 Reassessment: Patient appears in no apparent distress at this time. No changes from kc6 previously documented assessment. Patient and/or family updated on plan of care and expected duration. Pain level reassessed. Patient is alert, oriented x 3, equal unlabored respirations, skin warm/dry/pink. 20:56 General: Appears in no apparent distress. comfortable, Behavior is calm, cooperative. lg3 Pain: Denies pain. Neuro: [place] Agitation-Sedation Scale (RASS): 0 - Alert and Calm Level of Consciousness is awake, alert, obeys commands, Oriented to person. Cardiovascular: No deficits noted. Denies chest pain, shortness of breath, Capillary refill < 3 seconds Clubbing of nail beds is absent JVD is absent Patient's skin is warm and dry. Respiratory: No deficits noted. Airway is patent Respiratory effort is even, unlabored, Respiratory pattern is regular, symmetrical. GI: No deficits noted. No signs and/or symptoms were reported involving the gastrointestinal system. Abdomen is round non-distended, Abd is soft and non tender X 4 quads. Patient currently denies abdominal pain. : 3-way catheter in place to gravity drainage Urine is blood tinged, Bladder is distended Parent/caregiver report the patient having inability to void incontinence. EENT: Poor dentition noted. Derm: Skin is intact, is thin, Skin is dry, Skin is normal, Skin temperature is warm. Musculoskeletal: Circulation, motion, and sensation intact. Range of motion: intact in all extremities, Swelling present in right leg and left leg. 21:28 General: attempted to call report. Kimmie not available and will call back. . lg3 Vital Signs: 17:39 BP 113 / 51; Pulse 52; Resp 16 S; Temp 98.2(TE); Pulse Ox 100% on R/A; Weight 99.79 kg kc6 (R); Height 6 ft. 4 in. (R); Pain 0/10; 18:41 BP 118 / 55; Pulse 48; Resp 16 S; Pulse Ox 97% on R/A; kc6 20:56 BP 124 / 48; Pulse 53; Resp 14 S; Pulse Ox 96% on R/A; lg3 17:39 Body Mass Index 26.78 (99.79 kg, 193.04 cm) kc6 17:39 Pain Scale: Adult kc ED Course: 17:38 Patient arrived in ED. kc6 17:41 Triage completed. kc6 17:41 Nora Hatfield PA-C is PHCP. sb4 17:41 Arm band placed on. kc6 17:42 PHCP role handed off by Nora Hatfield PA-C cp 17:42 Gabe Moeller PA is PHCP. cp 17:42 Gabe Fairbanks MD is Attending Physician. cp 17:43 Brittney Charles, VASILE is Primary Nurse. kc6 17:43 Patient has correct armband on for positive identification. Bed in low position. Call kc6 light in reach. Side rails up X2. Adult w/ patient. 18:00 Inserted saline lock: 20 gauge in left antecubital area, using aseptic technique. Blood kc6 collected. 18:07 XRAY Chest (1 view) In Process Unspecified. EDMS 18:37 US Extremity Venous W Compression Lance In Process Unspecified. EDMS 19:26 Broderick Herbert FNP-C is Hospitalizing Provider. cp 19:43 Stanley Ramires MD is Hospitalizing Provider. cp 20:18 Bladder scan completed. 999+ ML. provider notified. lg3 20:56 Client placed on continuous cardiac and pulse oximetry monitoring. NIBP monitoring lg3 applied. teletypesetter monitor on. Door closed. Noise minimized. Warm blanket given. 20:56 Patient maintains SpO2 saturation greater than 95% on room air. lg3 21:01 Ferris cath inserted, using sterile technique, 16 Fr., by al, balloon inflated, to lg3 gravity drainage, urine specimen collected. returned xiang urine. Patient tolerated well. 1500ml initial output. 21:03 Bladder scan completed. 59 ML post Ferris insertion. provider notified. lg3 21:04 Urinalysis W/Microscopic Sent. lg3 21:36 CT Stone Protocol In Process Unspecified. EDMS 23:20 No provider procedures requiring assistance completed. Patient admitted, IV remains in lg3 place. intact, No redness/swelling at site. Administered Medications: 19:44 CANCELLED (Physician Discretion): D5W IV 20 mEq/L 1000 ml IV at 75 ml/hr once cp 20:00 CANCELLED (Other Intervention Used): D5W IV 20 mEq/L 1000 ml IV at 75 ml/hr once lg3 21:19 Drug: Potassium PO Effervescent Tablet 25 mEq Route: PO; lg3 22:22 Follow up: Response: No adverse reaction lg3 22:22 Drug: D5W IV 1000 ml Route: IV; Rate: 75 ml/hr; Site: left antecubital; lg3 Medication: 23:20 VIS not applicable for this client. lg3 Outcome: 19:26 Decision to Hospitalize by Provider. cp 23:20 Admitted to ICU accompanied by nurse, via stretcher, room 3, Report called to Kimmie lg3 23:20 Condition: stable 23:20 Instructed on the need for admit. 23:20 Patient left the ED. lg3 Signatures: Dispatcher [employer] EDMS Gabe Moeller PA PA cp Gibson, Lacie RN RN lg3 Brittney Chalres RN RN kc6 Nora Hatfield PA-C PAJose sb4 Corrections: (The following items were deleted from the chart) 21:00 20:56 Musculoskeletal: No deficits noted. No signs and/or symptoms reported regarding lg3 the musculoskeletal system. Circulation, motion, and sensation intact. Range of motion: intact in all extremities, lg3
--- NOTE | 2023-03-10 19:27 | EDPHYS ---
Physician Documentation [facility] Name: Brian Manning Jr Age: 82 yrs Sex: Male : 1940 Arrival Date: 03/10/2023 Time: 17:33 Bed 16 Private MD: ED Physician Gabe Fairbanks HPI: 03/10 17:50 This 82 yrs old Black Male presents to ER via EMS with complaints of Leg Swelling. cp 17:50 The patient presents with swelling. The complaints affect the right foot, left foot, cp right leg and left leg. Context: resulted from an unknown cause. 17:50 Onset: The symptoms/episode began/occurred gradually. cp 17:50 Associated signs and symptoms: Pertinent negatives fever, warmth, chest pain, abdominal cp pain. 17:50 Treatment prior to arrival includes: no previous treatment. Patient is a 82 y/o male cp with PMHX significant for hyperlipidemia, Anxiety, PTSD, blindness who presents to ED with c/o lower extremity edema. Historical: - Allergies: 17:41 No Known Allergies; kc6 - PMHx: 17:41 Hypercholesterolemia; Anxiety; PTSD; blind in both eyes; hard of hearing; kc6 - PSHx: 17:41 None; kc6 - Immunization history:: Client reports receiving the 2nd dose of the Covid vaccine, Flu vaccine is up to date. - Social history:: Smoking status: Patient denies any tobacco usage or history of. ROS: 17:50 Constitutional: Negative for body aches, chills, fever, poor PO intake. cp 17:50 Eyes: Negative for injury, pain, redness, and discharge. cp 17:50 ENT: Negative for drainage from ear(s), ear pain, sore throat, difficulty swallowing, difficulty handling secretions. 17:50 Cardiovascular: Positive for edema, Negative for chest pain, palpitations. 17:50 Respiratory: Negative for cough, shortness of breath, wheezing. 17:50 Abdomen/GI: Negative for abdominal pain, nausea, vomiting, and diarrhea, black/tarry stool, rectal bleeding. 17:50 Back: Negative for pain at rest, pain with movement. 17:50 Neuro: Negative for altered mental status, dizziness, headache, syncope. 17:50 All other systems are negative. Exam: 17:57 ECG was reviewed by the Attending Physician. cp 18:00 Constitutional: The patient appears in no acute distress, alert, awake, comfortable, cp non-diaphoretic, non-toxic, well developed, well nourished. 18:00 Head/Face: Normocephalic, atraumatic. cp 18:00 Eyes: Periorbital structures: appear normal. 18:00 ENT: External ear(s): are unremarkable, Nose: is normal, Mouth: Lips: moist, Oral mucosa: moist, Posterior pharynx: is normal, airway is patent, no erythema, no exudate. 18:00 Chest/axilla: Inspection: normal, Palpation: is normal, no crepitus, no tenderness. 18:00 Cardiovascular: Rate: bradycardic, Rhythm: regular, Edema: ankle edema, that is moderate, JVD: is not appreciated. 18:00 Respiratory: the patient does not display signs of respiratory distress, Respirations: normal, no use of accessory muscles, no retractions, labored breathing, is not present, Breath sounds: are clear throughout, no decreased breath sounds, no stridor, no wheezing. 18:00 Abdomen/GI: Inspection: abdomen appears normal, Palpation: abdomen is soft and non-tender, in all quadrants. 18:00 Back: pain, is absent, ROM is normal. 18:00 Skin: cellulitis, is not appreciated, no rash present. 18:00 Neuro: Orientation: to person, place \T\ time. Mentation: able to follow commands, slow to respond, Motor: moves all fours, general weakness with no focal deficits, Sensation: is normal. Vital Signs: 17:39 BP 113 / 51; Pulse 52; Resp 16 S; Temp 98.2(TE); Pulse Ox 100% on R/A; Weight 99.79 kg kc6 (R); Height 6 ft. 4 in. (R); Pain 0/10; 18:41 BP 118 / 55; Pulse 48; Resp 16 S; Pulse Ox 97% on R/A; kc6 20:56 BP 124 / 48; Pulse 53; Resp 14 S; Pulse Ox 96% on R/A; lg3 17:39 Body Mass Index 26.78 (99.79 kg, 193.04 cm) [facility] 17:39 Pain Scale: Adult kc6 MDM: 17:42 Patient medically screened. sb4 19:30 Data reviewed: vital signs, nurses notes, lab test result(s), EKG, radiologic studies, cp CT scan, plain films, ultrasound. 19:30 Consideration of Admission/Observation Patient was admitted/placed on observation. cp Management of patient was discussed with the following: Vp Clinical: Broderick Herbert, TELEPHONE MECHANIC will admit after discussion. Consult with nephrology, DR Issa who wants D5W given at 75 ml/hr and admit to ICU. Counseling: I had a detailed discussion with the patient and/or guardian regarding: the historical points, exam findings, and any diagnostic results supporting the discharge/admit diagnosis, lab results, radiology results, the need for further work-up and treatment in the hospital. 22:22 ED course: msg left on voicemail of DR Cheung for consult. cp 03/10 17:43 Order name: Basic Metabolic Panel; Complete Time: 19:02 cp 03/10 19:03 Interpretation: Normal except: K 3.0; CO2 35; GLUC 225; BUN 67; CRE 4.06; GFR 14; NA cp 171; CL 136; ANION GAP 3.0. 03/10 17:43 Order name: CBC with Diff; Complete Time: 23:00 cp 03/10 19:24 Interpretation: Normal except: RBC 3.73; HGB 10.6; HCT 33.4; MCHC 31.7; PLT 70; GERARDO% cp 75.2. 03/10 17:43 Order name: Magnesium; Complete Time: 19:02 cp 03/10 19:03 Interpretation: Abnormal: MG 3.4. cp 03/10 17:43 Order name: NT PRO-BNP; Complete Time: 19:02 cp 03/10 17:43 Order name: PT-INR; Complete Time: 23:00 cp 03/10 17:43 Order name: Troponin HS; Complete Time: 19:02 cp 03/10 19:02 Order name: Urinalysis W/Microscopic; Complete Time: 21:31 cp 03/10 19:11 Order name: BMP: redraw; Complete Time: 23:00 cp 03/10 19:15 Order name: LFT's; Complete Time: 23:00 la1 03/10 22:43 Order name: CBC Smear Scan; Complete Time: 23:00 EDMS 03/10 17:42 Order name: US Extremity Venous W Compression Brandon; Complete Time: 18:53 cp 03/10 17:43 Order name: XRAY Chest (1 view); Complete Time: 18:53 cp 03/10 18:55 Order name: CT Stone Protocol; Complete Time: 21:57 cp 03/10 17:43 Order name: EKG; Complete Time: 17:44 cp 03/10 17:43 Order name: Cardiac monitoring; Complete Time: 17:44 cp 03/10 17:43 Order name: EKG - Nurse/Tech; Complete Time: 18:00 cp 03/10 17:43 Order name: IV Saline Lock; Complete Time: 18:00 cp 03/10 17:43 Order name: Labs collected and sent; Complete Time: 18:00 cp 03/10 17:43 Order name: O2 Per Protocol; Complete Time: 17:44 cp 03/10 17:43 Order name: O2 Sat Monitoring; Complete Time: 17:44 cp 03/10 18:29 Order name: Misc. Order: Recollect lavender tube, lab wants to recheck CBC/PLT; zm Complete Time: 18:49 03/10 19:02 Order name: Bladder Scanner: pre and post void; Complete Time: 21:04 cp 03/10 19:11 Order name: Ferris; Complete Time: 21:03 cp EC:57 Rate is 51 beats/min. Rhythm is regular. QRS interval is normal. QT interval is normal. cp Interpreted by me. Reviewed by me. Administered Medications: 19:44 CANCELLED (Physician Discretion): D5W IV 20 mEq/L 1000 ml IV at 75 ml/hr once cp 20:00 CANCELLED (Other Intervention Used): D5W IV 20 mEq/L 1000 ml IV at 75 ml/hr once lg3 21:19 Drug: Potassium PO Effervescent Tablet 25 mEq Route: PO; lg3 22:22 Follow up: Response: No adverse reaction lg3 22:22 Drug: D5W IV 1000 ml Route: IV; Rate: 75 ml/hr; Site: left antecubital; lg3 Disposition Summary: 03/10/23 19:26 Hospitalization Ordered Hospitalization Status: Inpatient Admission cp Location: Intensive Care Unit cp Condition: Stable cp Problem: new cp Symptoms: are unchanged cp Bed/Room Type: Standard cp Provider: Stanley Ramires(03/10/23 19:43) cp Room Assignment: 3-(07/08/23 20:48) cg Diagnosis - Acute kidney failure, unspecified cp - Hyperosmolality and hypernatremia cp - Hypokalemia cp - Other cholelithiasis without obstruction cp Forms: - Medication Reconciliation Form cp - SBAR form cp Signatures: Dispatcher [employer] EDMS Broderick Herbert, STEPHON[employer] Gabe Moeller PA PA cp Garcia, Cindy, RN RN cg Gibson, Lacie, RN RN lg3 Nereida La Kaitlyn, RN RN kc6 Nora Hatfield PA-C PA-C sb4 Corrections: (The following items were deleted from the chart) 19:03 18:53 Normal except: K 3.0; CO2 35; GLUC 225; BUN 67; CRE 4.06; GFR 14. cp cp 19:43 19:26 Broderick Herbert cp cp 19:44 19:25 D5W IV 20 mEq/L 1000 ml IV at 75 ml/hr once ordered. cp cp 20:00 19:45 D5W IV 20 mEq/L 1000 ml IV at 75 ml/hr once ordered. cp lg3 20:48 19:26 cp cg
[2023-03-10] MEDS ORDERED: POTASSIUM 25 MEQ EFFERV TAB ONE (19:56)
[2023-03-10] MEDS ORDERED: D5W 1,000 ML IV ONE (20:06)
[2023-03-10 21:23] LABS: Specific Gravity 1.011 (1.005-1.030); Urine Bacteria <20 /HPF (<20); Urine Bilirubin NEGATIVE (Negative); Urine Blood 3+ (OVER) (Negative); Urine Clarity Turbid (Clear); Urine Color Light-Yellow (Yellow); Urine Glucose NEGATIVE (Negative); Urine Mucus Slight /HPF (None Seen); Urine Protein NEGATIVE (Negative); Urine RBC 21-50 /HPF (None Seen); Urine Urobilinogen Normal (Normal)
--- NOTE | 2023-03-10 21:49 | RAD REPORT ---
EXAM DESCRIPTION: CT - Stone Protocol - 03/10/2023 9:34 pm CLINICAL HISTORY: Abdominal pain. Acute renal failure COMPARISON: None. TECHNIQUE: Computed axial tomography of the abdomen pelvis was obtained without oral or IV contrast. Lack of IV and oral contrast limits evaluation of solid organs, appendix, bowel, and vessels. Santana l reformatted images were obtained and reviewed. All CT scans are performed using dose optimization technique as appropriate and may include automated exposure control or mA/KV adjustment according to patient size. FINDINGS: Some of the images are degraded by patient motion artifact A renal calculus is not seen. An ureteral calculus is not noted. A bladder calculus is not present. M ild bilateral hydronephrosis. The wall of the renal pelvis appears thickened. Gallbladder distention. Multiple small gallstones. There is no evidence of diverticulitis. The appendix appears normal Prostate gland is moderately enlarged. Ferris catheter within the bladder. Thickened bladder wall. Asy mmetric thickening of superior bladder wall. Mild chronic deformity L2 vertebral body Spondylosis lumbar spine resulting spinal stenosis IMPRESSION: Mild bilateral hydronephrosis. Perhaps this is related to a chronic bladder outlet obstr uction. The wall of bladder is thickened probably related to chronic bladder outlet obstruction. There is als o asymmetric thickening of the superior bladder wall which raises the possibility of the mass. Direct visualization would be helpful The wall of the renal pelves bilaterally appears thickened. This is nonspecific but can be seen with inflammation. Cholelithiasis with gallbladder distention
[2023-03-10 22:29] LABS: Bilirubin Direct 0.3 mg/dL (0-0.2); Bilirubin Indirect, Calculated 0.7 mg/dL (0.2-0.8); Potassium 3.1 mEq/L (3.5-5.1); Protein, Total 6.9 g/dL (6.4-8.2)
[2023-03-10 22:39] LABS: Protime INR 0.97
[2023-03-10 22:42] LABS: Platelet Estimate DECR; White Blood Cell Scan OK (OK)
[2023-03-10 22:43] LABS: Blood Morphology Comment NOT SEEN (NOT SEEN)
[2023-03-10] MEDS ORDERED: ONDANSETRON 4 MG/2 ML VIAL IV PRN (23:10)
--- NOTE | 2023-03-10 23:18 | P.HP ---
Certification for Inpatient Patient admitted to: Inpatient With expected LOS: >2 Midnights Patient will require the following post-hospital care: None Practitioner: I am a practitioner with admitting privileges, knowledge of patient current condition, hospital course, and medical plan of care. Services: Services provided to patient in accordance with Admission requirements found in Title 42 Section 412.3 of the Code of Federal Regulations Patient History Date of Service: 03/10/23 Reason for admission: Hypernatremia, acute renal failure History of Present Illness: 82-year-old male with history of hyperlipidemia, anxiety/depression presented to the emergency department chief complaint of lower leg swelling noticed by his family members. Patient is blind, hard of hearing lives at home with his sister who helps care for him. He had a circumcision performed on 01/30/2023, his sister reports that since he had that surgery he has been declining, also his other sister around that same time, since then he has had very poor oral intake, not ambulating and generally declining. He was evaluated in the emergency department his initial labs are significant for marked hyponatremia with a sodium of 171 potassium 3.0 chloride 136 bicarb 35 creatinine 4.06 GFR 14 glucose 225 magnesium 3.4 LFTs within normal limits hemoglobin 10.6 medic at 33.4 platelets 70 chest x-ray was unremarkable DVT study negative bilateral lower extremities CT of the abdomen pelvis without contrast was performed which revealed mild bilateral hydronephrosis perhaps related to chronic bladder outlet obstruction. Wall of the bladder is thickened probably related to chronic bladder outlet obstruction. There is also asymmetric thickening of the superior bladder wall which raises the possibility of a mass. Direct visualization would be helpful. The wall of the renal pelvises bilaterally appear thickened. This is nonspecific but can be seen with inflammation. Cholelithiasis without gallbladder distention. Patient denies any abdominal pain is nontender of the entire abdomen including the right upper quadrant. He will be admitted for acute renal failure, hypernatremia, urinary retention. Bladder scan was performed which resulted greater than 999 mL, Ferris catheter returned approximate 1600 mL of urine. Allergies No Known Allergies Allergy (Verified 01/25/23 10:03) Home Medications: Atorvastatin Calcium [Lipitor*] 20 mg PO BEDTIME 01/25/23 Calcium Phosphate Trib/Vit D3 [Calcium + Vitamin D3 Gummies] 1 each PO DAILY 01/25/23 Sertraline HCl 50 mg PO DAILY 01/25/23 Tamsulosin [Flomax*] 0.4 mg PO BEDTIME 01/25/23 Cephalexin [Keflex*] 500 mg PO Q8H #21 cap 01/30/23 Codeine/APAP [Tylenol W/Codeine #3 tab] 1 tab PO Q6HP PRN #15 tab 01/30/23 - Past Medical/Surgical History -: Hyperlipidemia -: Depression/anxiety -: Circumcision 2022 Psychosocial/ Personal History: Patient is at home with his sister who helps care for him - Family History Family History: Reviewed- Non-Contributory - Social History Smoking Status: Never smoker Alcohol use: No CD- Drugs: No Caffeine use: Yes Place of Residence: Home Review of Systems 10-point ROS is otherwise unremarkable Musculoskeletal: Pedal edema Physical Examination - Physical Exam General: Alert, In no apparent distress, Oriented x3 HEENT: Atraumatic, PERRLA, Mucous membr. moist/pink, EOMI, Sclerae nonicteric Neck: Supple, 2+ carotid pulse no bruit, No LAD, Without JVD or thyroid abnormality Respiratory: Clear to auscultation bilaterally, Normal air movement Cardiovascular: Regular rate/rhythm, Normal S1 S2, Edema Gastrointestinal: Normal bowel sounds, No tenderness Musculoskeletal: No tenderness Integumentary: No rashes Neurological: Normal speech, Normal strength at 5/5 x4 extr, Normal tone, Normal affect - Studies Laboratory Data (last 24 hrs) 03/10/23 21:23: Total Bilirubin 1.0, AST 32, ALT 51, Alkaline Phosphatase 79 03/10/23 21:23: Sodium 167 H*, Potassium 3.1 L, BUN 69 H, Creatinine 4.11 H, Glucose 179 H 03/10/23 18:49: WBC 6.50, Hgb 10.6 L, Hct 33.4 L, Plt Count 70 L 03/10/23 17:55: PT 10.7, INR 0.97 03/10/23 17:55: Sodium 171 H*, Potassium 3.0 L, BUN 67 H, Creatinine 4.06 H, Glucose 225 H, Magnesium 3.4 H Assessment and Plan - Plan Assessment: Acute renal failure Urinary retention Possible bladder mass Hypernatremia Thrombocytopenia Hyperlipidemia Anxiety/depression Plan: Acute renal failure Urinary retention Possible bladder mass Hypernatremia Acute renal failure likely secondary to chronic bladder outlet obstruction/urinary retention and combination with poor oral intake/dehydration. Ferris catheter was placed in the ER with 1600 cc urine return. He had labs in January which showed normal creatinine and sodium. Case was discussed with nephrology who recommends admission to the ICU, every 6 hours chemistry, fluids with D5W at 75 MLS per hour. Renal ultrasound ordered, continue IV fluids, appreciate further input from nephrology. Discussed CT findings including bladder mass with patient and need for outpatient evaluation including possible cystoscope. Thrombocytopenia Unclear etiology, hold off on heparin for now, monitor daily. Hyperlipidemia Anxiety/depression Continue home medications. DVT PPX: SCDs given thrombocytopenia Code status: Full Discharge Plan: Home Plan to discharge in: Greater than 2 days - Advance Directives Does patient have a Living Will: No Does patient have a Durable POA for Healthcare: No - Code Status/Comfort Care Code Status Assessed: Yes (Full code) Critical Care: No Time Spent Managing Pts Care (In Minutes): 70
[2023-03-10] MEDS ORDERED: D5W 1,000 ML IV SCH (23:45)
[2023-03-11 05:09] LABS: Hematocrit 33.1 % (39.6-49.0); Lymphocytes % 14.8 % (15.3-44.8); MCV 89.2 fL (80-100); MPV 10.1 fL (7.6-11.3); RBC Red Blood Cell Count 3.72 M/uL (4.33-5.43)
[2023-03-11 05:49] LABS: Magnesium 3.3 mg/dL (1.6-2.4); Potassium 2.9 mEq/L (3.5-5.1); Thyroid Stimulating Hormone 0.403 uIU/mL (0.358-3.740); Uric Acid 10.7 mg/dL (3.5-7.2)
[2023-03-11] MEDS ORDERED: POTASSIUM CL SA 10 MEQ TAB PO ONE (05:53)
[2023-03-11] MEDS ORDERED: D5W 1,000 ML with POTASSIUM CL 20 MEQ IV SCH ×4 (07:00→07:30)
--- NOTE | 2023-03-11 07:09 | P.PN ---
Date of Service: 03/11/23 Subjective: Mccrary with bloody urine (strawberry / more red in color), (watermelon colored yesterday per report) per nursing report, bleed began last night; suspect patient tugged on catheter during imaging procedure 2300 ml emptied from cath overnight, +1600 ml on admission after mccrary placement no BM since at least admission, pt doesnt recall his last BM ?trouble swallowing, Holding food and liquids in mouth constantly, aspiration precautions ROS: 10 point ROS as noted above, otherwise negative Physical Exam: GEN: Alert, orientedx1, poor dentition HEENT: Normal conjunctiva, sclera anicteric CV: Regular rate and rhythm, 1-2+ lower ext edema Pulm: Nonlabored respirations on room air ABD: Soft, nontender, nondistended Neuro: Normal speech, normal affect, blind, oriented to self only, cooperative Mccrary in place vitals reviewed Problem List: ALIS, secondary to dehydration and obstruction Hypernatremia, severe Urinary retention Hematuria Possible bladder mass Thrombocytopenia Hyperlipidemia Anxiety/depression ALIS, secondary to dehydration and obstruction Hypernatremia, severe Urinary retention Hematuria ALIS likely secondary to chronic bladder outlet obstruction/urinary retention and combination with poor oral intake/dehydration. He had labs in January which showed normal creatinine and sodium. FENa: 7.2% 2300 ml emptied from cath overnight, +1600 ml on admission after mccrary placement Mccrary with bloody urine (strawberry colored today), (watermelon colored yesterday per report); +some blood from tip of penis Monitor H&H closely. Currently 10.7. start irrigation CT abdomen (03/10): Mild bilateral hydronephrosis. Perhaps this is related to a chronic bladder outlet obstruction. The wall of bladder is thickened probably related to chronic bladder outlet obstruction. There is also asymmetric thickening of the superior bladder wall which raises the possibility of the mass. The wall of the renal pelves bilaterally appears thickened. Gallbladder distention. Multiple small gallstones. Renal u/s (03/11): Mild bilateral hydronephrosis. Markedly distended, with lobulated layering debris start irrigation q4h x24hrs, urology as outpatient, consult if not improving Nephrology consulted labs Q6 hrs, fluids with D5W NPO due to concern for aspiration speech consult Possible bladder mass CT abdomen: The wall of bladder is thickened probably related to chronic bladder outlet obstruction. There is also asymmetric thickening of the superior bladder wall which raises the possibility of the mass. follow up outpatient evaluation including possible cystoscope if no improvement, consider inpatient urology consult if/when available Thrombocytopenia Unclear etiology, avoid DVT prophylaxis at this time given bleed Hyperlipidemia Anxiety/depression Continue home medications. VTE: SCD given thrombocytopenia Code: Full Dispo: Home 2+ days icu level of care
[2023-03-11] MEDS: INSULIN -REGULAR HUMAN 50 UNIT/0.5 ML ML SQ SCH ×4 (07:30→20:23)
[2023-03-11] MEDS: D5W 1,000 ML with POTASSIUM CL 20 MEQ IV SCH ×4 (08:28→19:40)
--- NOTE | 2023-03-11 09:23 | RAD REPORT ---
EXAM DESCRIPTION: US - Renal Ultrasound-Complete - 03/11/2023 6:47 am CLINICAL HISTORY: swati COMPARISON: Stone Protocol dated 03/10/2023 TECHNIQUE: Sonographic grayscale and color flow images of the kidneys and bladder were obtained. FINDINGS: Decreased penetration due to patient's body habitus. Both kidneys are normal in size, shape and echotexture. The right kidney measures 10.3 cm in length. No focal mass or perinephric fluid. The left kidney measures 7 cm in length. No focal mass or perinephric fluid. Mild bilateral hydronephrosis. No echogenic calculi. The urinary bladder is markedly distended, with lobulated layering debris. Ferris catheter in place. IMPRESSION: Mild bilateral hydronephrosis. Markedly distended, with lobulated layering debris. Ferris catheter in place.
[2023-03-11 11:40] LABS: Potassium 3.4 mEq/L (3.5-5.1)
[2023-03-11 11:42] LABS: Hematocrit 37.1 % (39.6-49.0); Lymphocytes % 14.8 % (15.3-44.8); MCV 89.3 fL (80-100); MPV 10.9 fL (7.6-11.3); RBC Red Blood Cell Count 4.16 M/uL (4.33-5.43)
[2023-03-11] MEDS ORDERED: D5W 1,000 ML IV SCH ×2 (12:00→20:00)
--- NOTE | 2023-03-11 12:24 | P.CNS ---
Date of Consult: 03/11/23 Reason for Consult: ALIS , hypernatremia Chief Complaint: Hypernatremia, acute renal failure History of Present Illness: An 82-year-old male legally blind with history of hyperlipidemia, anxiety/depression and HTN presented to the emergency department chief complaint of lower leg swelling Pt had He had a circumcision performed on 01/30, on that time ~Cr 1.0, in ER labs showed NA 170, cr 4.0 , CT scan showed distended bladder , upon insertiom of mccrary 1600ml of urine collected, as per family pt had poor oral intake since surgery time and functionally declining ROS limited Head and Neck: No red eye. No ear pain. GI: denied nausea, voimiting : No polyuria. No dysuria. No hematuria. Respiratory: denied shortness of breath.or cough Cardiovascular: No chest pain. or leg swelling. Endocrine: No polydipsia. Skin: No rash. Neuro: weakness Musculoskeletal: Generalized fatigue. Physical exam General: Awake, NAD HEENT: Atraumatic, Normocephalic Neck: Supple, no elevated JVD Respiratory: CTAB Cardiovascular: No rubs, No murmurs Gastrointestinal: Soft and benign, Non-distended, mccrary catheter Musculoskeletal: No clubbing EXt; pedal edema A/p #AILS due to dehydration and obstructive uropathy baseline cr 1.0 Cont IVF , will increase rate and give D5W bolus avoid NSAID and contrast renal dose meds #Severe Hyponatremia ghazala to poor oral intake Pt is polyuric now, will give D5w water bolus and make input >output #Obstructive uropathy Cont Mccrary Urology Follow up as an OP #Bladder mass/debris Urology evaluation as an OP #Postobstructive polyuria as above #HTN will add hydralazine low salt diet #Thrombocytopenia Stable Cont to monitor Total time spent 75 minutes including documentation, reviewing labs , placing orders and discussing plan of care with medical staff Allergies No Known Allergies Allergy (Verified 01/25/23 10:03) Home Medications: Atorvastatin Calcium [Lipitor*] 20 mg PO BEDTIME 01/25/23 Calcium Phosphate Trib/Vit D3 [Calcium + Vitamin D3 Gummies] 1 each PO DAILY 01/25/23 Sertraline HCl 50 mg PO DAILY 01/25/23 - Past Medical/Surgical History Diabetic: No -: Hyperlipidemia -: Depression/anxiety -: Circumcision 2022 Psychosocial/ Personal History: Patient is at home with his sister who helps care for him - Social History Smoking Status: Unknown if ever smoked Alcohol use: No CD- Drugs: No Caffeine use: Yes Place of Residence: Home Physical Examination Temp Pulse Resp BP Pulse Ox 97.8 F 72 16 164/64 H 100 03/11/23 08:00 03/11/23 11:00 03/11/23 10:00 03/11/23 11:00 03/11/23 01:00 Laboratory Data (last 24 hrs) 03/10/23 21:23: Total Bilirubin 1.0, AST 32, ALT 51, Alkaline Phosphatase 79 03/10/23 21:23: Sodium 167 H*, Potassium 3.1 L, BUN 69 H, Creatinine 4.11 H, Glucose 179 H 03/10/23 18:49: WBC 6.50, Hgb 10.6 L, Hct 33.4 L, Plt Count 70 L 03/10/23 17:55: PT 10.7, INR 0.97 03/10/23 17:55: Sodium 171 H*, Potassium 3.0 L, BUN 67 H, Creatinine 4.06 H, Glucose 225 H, Magnesium 3.4 H
[2023-03-11] MEDS: HYDRALAZINE HCL 25 MG TABLET PO SCH ×2 (14:00→19:41)
[2023-03-11 17:19] LABS: Hematocrit 34.8 % (39.6-49.0)
[2023-03-11 17:37] LABS: Potassium 3.2 mEq/L (3.5-5.1)
[2023-03-11] MEDS ORDERED: HALOPERIDOL LACT 5 MG/ML INJ IV ONE (18:48)
[2023-03-11] MEDS: TAMSULOSIN 0.4 MG SR CAP PO SCH (19:41)
[2023-03-11] MEDS ORDERED: KCL 20 MEQ/100 mL IVPB 100 ML IV ONE (19:55)
[2023-03-11] MEDS ORDERED: HYDRALAZINE HCL 20 MG/ML VIAL IV PRN (19:56)
[2023-03-11] MEDS ORDERED: D5W 1,000 ML with POTASSIUM CL 40 MEQ IV SCH ×2 (20:00)
[2023-03-11] MEDS ORDERED: KCL 20 MEQ/100 mL IVPB 20 MEQ/100 ML BAG IV SCH (20:00)
[2023-03-11] MEDS: D5W 1,000 ML IV SCH (20:22)
[2023-03-11] MEDS ORDERED: KCL 20 MEQ/100 mL IVPB 100 ML IV SCH (21:00)
[2023-03-11 23:19] LABS: Potassium 3.1 mEq/L (3.5-5.1)
[2023-03-12] MEDS ORDERED: HALOPERIDOL LACT 5 MG/ML INJ IV PRN (04:28)
[2023-03-12] MEDS: D5W 1,000 ML IV SCH (05:20)
[2023-03-12 05:34] LABS: Hematocrit 30.7 % (39.6-49.0); Lymphocytes % 14.9 % (15.3-44.8); MCV 88.8 fL (80-100); MPV 9.9 fL (7.6-11.3); RBC Red Blood Cell Count 3.45 M/uL (4.33-5.43)
--- NOTE | 2023-03-12 06:42 | P.PN ---
Date of Service: 03/12/23 Subjective: Mccrary with bloody urine continues (strawberry colored) Intermittent confusion, trying to get out of bed overnight 5495 ml emptied from mccrary since yesterday morning bladder irrigation q4h with 100ml started yesterday, minimal to no clots per nursing Speech to eval today ROS: 10 point ROS as noted above, otherwise negative Physical Exam: GEN: Alert, orientedx1, poor dentition HEENT: Normal conjunctiva, sclera anicteric CV: Regular rate and rhythm, 1-2+ lower ext edema Pulm: Nonlabored respirations on room air, diminished at bases ABD: Soft, nontender, nondistended Neuro: Normal speech, normal affect, blind, oriented to self only, confused Mccrary in place vitals reviewed Problem List: ALIS, secondary to dehydration and obstruction Hypernatremia, severe Urinary retention Hematuria Possible bladder mass Thrombocytopenia Hyperlipidemia Anxiety/depression ALIS, secondary to dehydration and obstruction Hypernatremia, severe Urinary retention Hematuria ALIS likely secondary to chronic bladder outlet obstruction/urinary retention and combination with poor oral intake/dehydration. He had labs in January which showed normal creatinine and sodium. FENa: 7.2% 2300 ml emptied from cath overnight, +1600 ml on admission after mccrary placement Mccrary with bloody urine (currently strawberry colored), (watermelon colored 03/10) Monitor H&H closely. Down from 11.0 -> 9.8 (03/12) start bladder irrigation 03/11, 100ml q4h CT abdomen (03/10): Mild bilateral hydronephrosis. related to a chronic bladder outlet obstruction. The wall of bladder is thickened probably related to chronic bladder outlet obstruction. There is also asymmetric thickening of the superior bladder wall which raises the possibility of the mass. The wall of the renal pelves bilaterally appears thickened. Gallbladder distention. Multiple small gallstones. no RUQ tenderness Renal u/s (03/11): Mild bilateral hydronephrosis. Markedly distended, with lobulated layering debris Urology consulted 03/12 Nephrology consulted labs Q6 hrs, fluids with D5W PRN haldol 03/12 if hematuria persists / becomes more anemic, monitor platelets closely, may benefit from a transfusion NPO due to concern for aspiration speech consulted Recommended patient be kept NPO until he is more alert and able to follow commands to comply with assessment Dysphagia therapy Possible bladder mass CT abdomen: The wall of bladder is thickened probably related to chronic bladder outlet obstruction. There is also asymmetric thickening of the superior bladder wall which raises the possibility of the mass. follow up outpatient evaluation including possible cystoscope if no improvement, consider inpatient urology consult if/when available Thrombocytopenia Unclear etiology, avoid DVT prophylaxis at this time given bleed Hyperlipidemia Anxiety/depression Continue home medications. VTE: SCD given thrombocytopenia Code: Full Dispo: Home 2+ days icu level of care
[2023-03-12] MEDS: INSULIN -REGULAR HUMAN 50 UNIT/0.5 ML ML SQ SCH ×4 (07:30→21:00)
[2023-03-12] MEDS: HYDRALAZINE HCL 25 MG TABLET PO SCH ×3 (08:43→21:16)
[2023-03-12] MEDS: D5W 1,000 ML with POTASSIUM CL 40 MEQ IV SCH ×8 (08:45→21:18)
[2023-03-12 13:36] LABS: Hematocrit 29.9 % (39.6-49.0)
[2023-03-12 16:12] LABS: Potassium 3.3 mEq/L (3.5-5.1)
[2023-03-12] MEDS ORDERED: D5W 1,000 ML with POTASSIUM CL 40 MEQ IV SCH ×2 (16:38)
[2023-03-12 17:08] LABS: Hematocrit 32.4 % (39.6-49.0)
--- NOTE | 2023-03-12 17:15 | EKG ---
Test Date: 2023-03-10 Test Time: 17:50:13 Cook Mayonnaise: BRISA MEASUREMENT RESULTS: Intervals: Rate: 51 [place]: QRSD: 96 QT: 492 QTc: 453 [place]: P: [place]: QRS: 38 T: 46 INTERPRETIVE STATEMENTS: Sinus bradycardia Abnormal ECG Electronically Signed On 03-12-23 17:12:58 CDT by Julian Silverman
--- NOTE | 2023-03-12 19:45 | P.PN ---
Date of Service: 03/13/23 Subjective: Chart has been reviewed. Patient continues to have hematuria. Urology to see the patient later today. Hyponatremia is slowly improving. Continue monitoring volume status closely. Patient's mentation is better as well. Spoke with family and they are aware of patient's current situation. Patient may need placement at the time of discharge. Physical Exam: GEN: Alert, orientedx1, poor dentition, Ferris in place HEENT: Normal conjunctiva, sclera anicteric CV: Regular rate and rhythm, 1-2+ lower ext edema Pulm: Nonlabored respirations on room air, diminished at bases ABD: Soft, nontender, nondistended Neuro: Normal speech, normal affect, blind, oriented to self only, confused Problem List: 1. ALIS, secondary to dehydration and obstruction 2. Hypernatremia, severe 3. Urinary retention 4. Hematuria 5. Possible bladder mass 6. Thrombocytopenia 7. Hyperlipidemia 8. Anxiety/depression PLAN 1. Continue with IV hydration with D5 water 2. May need to do bladder irrigation. Urology consulted 3. Continue with Ferris catheter in place 4. Patient with dysphagia status post speech therapy evaluation; pured diet 5. Monitor platelet counts 6. Continue with antidepressants 7. GI DVT prophylaxis
[2023-03-12 20:17] LABS: Magnesium 2.3 mg/dL (1.6-2.4); Phosphorus 2.1 mg/dL (2.5-4.9); Potassium 3.6 mEq/L (3.5-5.1)
[2023-03-12] MEDS: TAMSULOSIN 0.4 MG SR CAP PO SCH (21:19)
--- NOTE | 2023-03-12 23:18 | PN ---
Date of Progress Note: 03/12/2023 Chief Complaint: Acute kidney injury, hypernatremia. History Of Present Illness: The patient is an 82-year-old man, who is legally blind and has history of anxiety, depression, hypertension, hyperlipidemia. He was brought to emergency department because of lower extremity edema, swelling of both legs, and both feet. Patient apparently had a procedure done on January 03. He underwent circumcision, and at this time, lab work was done and show creatinine level 1.0. On arrival to this hospital, ER lab work showed sodium 170, creatinine level 4.0. CT sca n was done without IV contrast and showed distended bladder. Upon insertion of the Ferris catheter, u rine collection was up to 1600 mL. The patient was admitted to ICU for altered mental status, severe acute kidney injury, and severe dehydration, complicated by bladder outlet obstruction. The patient was admitted to ICU for bladder outlet obstruction. Review of Systems: Patient cannot provide review of systems. He is somewhat lethargic. He answers questions and he hartley s not have any complaint. Physical Examination: Neck: Supple. Respiratory: Clear to auscultation bilaterally. Heart: S1, S2. Abdomen: Soft, benign. Extremities: Edema in both feet. Impression And Plan: 1.Acute kidney injury due to dehydration and obstructive uropathy. Baseline creatinine level 1.0. Continue IV fluids. Patient is on D5W with potassium replacement. Avoid nonsteroidal antiinflammato ry medication. Avoid hypotensive episodes and continue renally-dosed medication. Renal function has improved somewhat over last 24 hours, although BUN and creatinine level are elevated. Sodium level is gradually improving and altered mental status is gradually resolving. 2.Severe hypernatremia due to poor p.o. intake. Patient currently is on IV fluids. He cannot mae ate by mouth, intake. Patient may need TPN. 3.Bladder mass, debris. Urology was consulted. 4.Possible obstructive polyuria. Continue to adjust IV fluids and monitor electrolytes closely. 5.Hypertension. Patient is on hydralazine. Continue current medication. EB/MODL Voice ID: [id number] Report ID: [id number]
[2023-03-13 05:05] LABS: Absolute Lymphocytes (CBC) 1.2 K/uL (0.7-4.9); Hematocrit 30.4 % (39.6-49.0); Lymphocytes % 14.9 % (15.3-44.8); MCV 88.8 fL (80-100); MPV 10.1 fL (7.6-11.3); RBC Red Blood Cell Count 3.43 M/uL (4.33-5.43)
[2023-03-13 05:28] LABS: Albumin 2.6 g/dL (3.4-5.0); Bilirubin Total 1.6 mg/dL (0.2-1.0); Magnesium 2.1 mg/dL (1.6-2.4); Potassium 3.7 mEq/L (3.5-5.1)
[2023-03-13] MEDS: D5W 1,000 ML with POTASSIUM CL 40 MEQ IV SCH ×4 (05:58→08:10)
[2023-03-13] MEDS ORDERED: KCL 20 MEQ/100 mL IVPB 20 MEQ/100 ML BAG IV SCH (07:00)
[2023-03-13] MEDS: HYDRALAZINE HCL 25 MG TABLET PO SCH ×3 (07:41→19:16)
[2023-03-13] MEDS: INSULIN -REGULAR HUMAN 50 UNIT/0.5 ML ML SQ SCH ×4 (08:18→19:48)
[2023-03-13] MEDS ORDERED: hydroCHLOROthiazide 25 MG TAB PO ONE (09:00)
[2023-03-13] MEDS ORDERED: D5W 1,000 ML with POTASSIUM CL 40 MEQ IV SCH ×2 (10:00)
[2023-03-13] MEDS ORDERED: GLUCAGON 1 MG/VIAL IM PRN (10:12)
[2023-03-13] MEDS ORDERED: D50W 25 GM/50 ML SYRINGE IV PRN (10:12)
[2023-03-13] MEDS ORDERED: INSULIN -REGULAR HUMAN 50 UNIT/0.5 ML ML IV ONE (10:12)
[2023-03-13] MEDS ORDERED: D10W 125 ML IV PRN (10:17)
[2023-03-13] MEDS ORDERED: CLONIDINE 0.1 MG/PATCH TD SCH (10:30)
[2023-03-13] MEDS: D5W 1,000 ML with POTASSIUM CL 20 MEQ IV SCH ×6 (12:29→19:49)
--- NOTE | 2023-03-13 15:40 | PN ---
Date of Progress Note: 03/13/2023 Subjective: The patient was admitted with acute kidney injury, hypernatremia secondary to dehydration. His sodium was elevated up to 170. The patient has been on IV fluid. The patient is still confused, poor intake. Blood sugar being elevated. Physical Examination: Vital Signs: When I saw the patient; blood pressure 131/48, pulse of 74, afebrile. Chest: Clear to auscultation. Heart: S1, S2. Systolic murmur. Abdomen: Soft, nontender. Extremity: No edema. Neuro: Confused. No focality. The patient had Ferris catheter with hematuria. Laboratory Data: WBC 8.3, H and H 9.8/30.2. Sodium 161, potassium 3.7, bicarb 31, BUN 28, creatinine 1.9, continued to trend down. Blood sugar above 200, calcium 7.8, magnesium 2.1, albumin 2.6, corrected calcium is 9. Current Medications: The patient on D5 175 per hour, clonidine, hydralazine 25 t.i.d., hydrochlorothiazide, Zofran. Assessment And Plan: 1. Acute kidney injury secondary to prerenal, on the recovery, still on the dry side. I am going to continue hydration for the patient and we will follow up. 2. Hypernatremia secondary to poor intake, dehydration/polyuria, postobstructive. I am going to go ahead and increase D5. The patient had water deficit of 5.4 L, insensible loss of 500 and the patient had urine output of 3100 in the last 24 hours, total of 9 L. I am going to go ahead and increase D5 to 250 every hour with 20 of KCl, make a total of IV fluid of 6 L and we will follow up the patient. 3. Hypokalemia. We will continue supplement. 4. Bladder mass. Follow up with Urology. 5. Obstructive uropathy with postobstructive polyuria. I am going to start the patient on Flomax. 6. Hypertension, not controlled. Given that the patient not eating, I am going to place the patient on clonidine patch and we will follow up. 7. Deconditioning. Continue PT, OT. Time spent examining the patient [id number], reviewing data, lab and radiology, placing order, discussing the case with the merchandise team manager including hospitalist and nursing staff more than 35 minutes. MA/MODL Voice ID: [id number] Report ID: [id number]
[2023-03-13] MEDS ORDERED: LIDOCAINE JELLY 2% 5 ML SYRINGE TOP ONE (17:12)
[2023-03-13 17:13] LABS: Hematocrit 28.4 % (39.6-49.0)
[2023-03-13 17:32] LABS: Specific Gravity 1.006 (1.005-1.030); Urine Bacteria <20 /HPF (<20); Urine Bilirubin NEGATIVE (Negative); Urine Blood 3+ (OVER) (Negative); Urine Clarity Extremely Turbid (Clear); Urine Color Red (Yellow); Urine Glucose NEGATIVE (Negative); Urine Protein 2+ (Negative); Urine RBC >50 /HPF (None Seen); Urine Urobilinogen Normal (Normal); Urine WBC Clump Moderate /HPF (None Seen); Urine pH 7.5 (5.0-7.0)
[2023-03-13 17:36] LABS: Albumin 2.4 g/dL (3.4-5.0); Bilirubin Total 1.8 mg/dL (0.2-1.0); Potassium 4.1 mEq/L (3.5-5.1); Protein, Total 5.6 g/dL (6.4-8.2)
--- NOTE | 2023-03-13 17:56 | P.CNS ---
Date of Consult: 03/13/23 Reason for Consult: gross hematuria and AUR Requesting Physician: Stanley Ramires Chief Complaint: Hypernatremia, acute renal failure History of Present Illness: 82-year-old gentleman with hyperlipidemia, depression and anxiety s/p circu mcision 01/30/2023 for phimosis with BXO, initially seen as an outpatient with incomplete bladder emptying, with plans for cystoscopic evaluation on follow-up to assess the anatomy of his mildly bothersome LUTS with moderate volume incomplete emptying. Since the surgical/anesthetic event on 01/30/2023, apparently he has been declining, per the family, despite reasonably normal appearance when seen early in the follow-up period for examination of the circumcision given his inability to make a self assessment due to his innate blindness. This decline has progressed to include poor oral intake/anorexia and failure to ambulate. Unfortunately, I was unaware of this declining physical status, and the patient was scheduled for routine follow-up where cystoscopy was to be performed. In the interim, he has been admitted via the emergency department severely hypernatremic with ALIS and markedly distended bladder with mild bilateral hydronephrosis. Urethral Ferris catheter was placed with over 1.6 L drained, and apparently the patient and his delirium attempted traumatic removal of the catheter resulting in development of gross hematuria. The catheter in place was only a 16 Armenian with a temperature probe as part of it. The nurses have since been periodically irrigating the catheter for the hematuria without significant clot identified. Past medical history as above Past surgical history as above Social history: Never smoker Family history: No history of urologic malignancy Examination: Patient verbally arousable and in no apparent distress No dyspnea or sign of respiratory distress Abdomen soft and nontender Lower extremities with marked edema Genitalia: Circumcised and well-healed without erosion or discharge. Mild to moderate edema of the shaft skin. 16 Armenian urethral Ferris catheter in place with gross hematuria emanating. 03/10/2023 CT without contrast (imaging I directly reviewed and agree with the following): Findings: No renal or ureteral calculi. No bladder calculi. Mild bilateral hydronephrosis. Wall of the renal pelvis appears thickened. No evidence of diverticulitis. Prostate gland enlarged. Thickened bladder wall. (Asymmetric thickening of superior bladder wall -Per radiologist interpretation). 03/10/2023 creatinine 4.06, sodium 171, UA micro 3+ heme, 21-50 RBCs, 0 WBCs, no bacteria 03/11/2023 hemoglobin 11.0/hematocrit 34.8, INR 0.97 03/12/2023 hemoglobin 9.8/30.7 03/13/2023 creatinine 1.99, sodium 161, BUN 28, glucose 250, bicarb 31, hemoglobin/hematocrit 9.8/30.4 Urethral Ferris catheter exchange and bladder irrigation procedure note: The 16 Armenian Ferris catheter indwelling was removed by deflating the balloon of 10 cc sterile water. I then prepped his genitalia with Betadine and draped in standard fashion before using a lidocaine Uro-Jet intraurethrally for local anesthesia. I then passed a 20 Armenian coud tipped catheter into his bladder with ease and placed 15 cc of sterile water in the balloon. Grossly bloody urine did eventually drain along with a significant quantity of air within his bladder; so I then employed a 60 cc catheter tip syringe and some sterile water alternating with normal saline to vigorously irrigate his bladder and remove any and all clot. Only a small quantity of old formed clot was retrieved, and at the end of just over 1 L of irrigation, the efflux was light pink with no clots. As such, the catheter was connected to the StatLock and left to gravity drainage. The patient tolerated the procedure well and without obvious complication. Assessment and recommendation: 82-year-old gentleman with hyperlipidemia, depression and anxiety s/p circumcision 01/30/2023 for phimosis with BXO, initially seen as an outpatient with incomplete bladder emptying, now with acute urinary retention complicated by bilateral hydronephrosis, acute kidney injury with hypernatremia and failure to thrive p Ferris catheter trauma potentially underlying gross hematuria but stable Hct. -Patient remains, in my estimation, with a significant free water deficit. Given the large volume retained urine and hydronephrosis, there is a significant likelihood he may also have suffered from postobstructive diuresis, which will exacerbate this effect. -Continue appropriate free water fluid resuscitation to manage the hypernatremia and associated ALIS. -I changed his urethral Ferris catheter to a 20 Armenian coud and copiously irrigated his bladder with over 1 L of sterile water and normal saline until the drainage was light pink. -Continue manual irrigation with 60 cc NS every 4 hours as needed for gross hematuria more than just light pink -Prophylactic dosed antimicrobial while undergoing manual irrigation to decrease the risk of cystitis complicating his circumstance -Continue Flomax 0.4 mg daily once patient more stable and on discharge -Follow-up for cystoscopic evaluation within 4 to 6 weeks of 03/13/2023 as an outpatient on discharge Allergies No Known Allergies Allergy (Verified 01/25/23 10:03) Home medications list reviewed: Yes Home Medications: Atorvastatin Calcium [Lipitor*] 20 mg PO BEDTIME 01/25/23 Calcium Phosphate Trib/Vit D3 [Calcium + Vitamin D3 Gummies] 1 each PO DAILY 01/25/23 Sertraline HCl 50 mg PO DAILY 01/25/23 - Past Medical/Surgical History Diabetic: No -: Hyperlipidemia -: Depression/anxiety -: Circumcision 2022 Psychosocial/ Personal History: Patient is at home with his sister who helps care for him - Social History Smoking Status: Unknown if ever smoked Alcohol use: No CD- Drugs: No Caffeine use: Yes Place of Residence: Home Physical Examination Temp Pulse Resp BP Pulse Ox 97.6 F 71 11 L 137/53 L 100 03/13/23 16:00 03/13/23 16:00 03/13/23 16:00 03/13/23 16:00 03/13/23 16:00 - Problems (1) Gross hematuria Current Visit: Yes Status: Acute (2) BPH loc w urin obs/LUTS Current Visit: Yes Status: Acute (3) Acute on chronic urinary retention Current Visit: Yes Status: Acute (4) ALIS (acute kidney injury) Current Visit: Yes Status: Acute (5) Hypernatremia Current Visit: Yes Status: Acute (6) Failure to thrive in adult Current Visit: Yes Status: Acute Critical Care: No Time Spent Managing Pts care (In Minutes): 75
[2023-03-13] MEDS ORDERED: INSULIN GLARGINE 100 UNIT/ML SQ SCH (18:00)
[2023-03-13] MEDS: TAMSULOSIN 0.4 MG SR CAP PO SCH (19:16)
[2023-03-14] MEDS: D5W 1,000 ML with POTASSIUM CL 20 MEQ IV SCH ×10 (00:39→20:17)
[2023-03-14 04:43] LABS: Absolute Lymphocytes (CBC) 1.5 K/uL (0.7-4.9); Hematocrit 26.9 % (39.6-49.0); Lymphocytes % 15.8 % (15.3-44.8); MCV 88.2 fL (80-100); MPV 9.6 fL (7.6-11.3); RBC Red Blood Cell Count 3.05 M/uL (4.33-5.43)
[2023-03-14 04:51] LABS: Albumin 2.3 g/dL (3.4-5.0); Magnesium 1.8 mg/dL (1.6-2.4); Phosphorus 1.7 mg/dL (2.5-4.9); Potassium 4.3 mEq/L (3.5-5.1); Uric Acid 4.7 mg/dL (3.5-7.2)
[2023-03-14] MEDS: HYDRALAZINE HCL 25 MG TABLET PO SCH ×3 (09:00→20:17)
[2023-03-14] MEDS: INSULIN -REGULAR HUMAN 50 UNIT/0.5 ML ML SQ SCH ×4 (09:02→20:17)
[2023-03-14] MEDS ORDERED: D5W 1,000 ML with POTASSIUM CL 20 MEQ IV SCH ×2 (09:15)
[2023-03-14] MEDS ORDERED: MAGNESIUM SULFATE 1 gm IVPB 1 GM/100 ML BAG IV ONE (11:48)
[2023-03-14] MEDS ORDERED: POTASSIUM PHOS IN 0.9 % NACL 15 MMOL/250 ML BAG IV ONE (11:48)
--- NOTE | 2023-03-14 13:32 | PN ---
Date of Progress Note: 03/14/2023 Subjective: The patient was admitted to the hospital with sepsis, urine retention, had hematuria yes terday, seen by Urology. The patient had severe hypernatremia. The patient had acute kidney injury secondary to bilateral obstructive uropathy. Catheter was inserted. Advised by Urology for manual i rrigation. Physical Examination: Vital Signs: When I saw the patient; blood pressure 137/56, pulse of 65, afebrile. The patient had urine output of 2100, had decreased compared to the previous 24-hour by 2 L. The patient positive by 3 L. Chest: Clear to auscultation. Heart: S1, S2. Regular. Abdomen: Soft, nontender. Extremity: No edema. Neuro: The patient more awake today. Speaks continuously, opens eyes spontaneously. No focality. Laboratory Data: Hemoglobin 8.9. Sodium 152, potassium 4.3, bicarb 30, BUN 21, creatinine 1.6, GFR 43, glucose 245, uric acid down to 4.7, calcium 7.5, phosphorus 1.7, and magnesium 1.8. Current Medications: The patient on include; 1.Clonidine patch. 2.Hydralazine 25 t.i.d. 3.Insulin, p.r.n. sliding scale. 4.D5 with potassium at 250. Assessment And Plan: 1.Acute kidney injury secondary to prerenal, on the recovery. The patient is still on the dry side with a component of obstructive uropathy confirmed with renal ultrasound. We will follow up with Uro logy. Continue Flomax. I am going to continue IV hydration. The patient will adjust the rate vickie tenorio on the water deficit and we will follow up. 2.Hypernatremia. The patient had water deficit of 2 to 2.5 L with insensible loss of 500 and urine output of 2 L, makes it total of almost 4.5 L. I am going to go ahead and decrease IV fluid, the D5 to down to 150 to provide 3600 to try to obtain more concentrated medulla to decrease the postobstruc tive polyuria. 3.Hypokalemia, hypophosphatemia. We will supplement. 4.Hypomagnesemia. We will supplement. 5.Obstructive uropathy as above. 6.Hematuria secondary to obstructive uropathy. Follow up with Urology. 7.Hypertension, controlled today. Continue clonidine. 8.Deconditioning. Continue PT, OT. DALE/DANK Voice ID: [id number] Report ID: [id number]
[2023-03-14] MEDS ORDERED: INSULIN GLARGINE 100 UNIT/ML SQ SCH ×2 (18:00→18:23)
[2023-03-14] MEDS: TAMSULOSIN 0.4 MG SR CAP PO SCH (20:17)
[2023-03-15] MEDS ORDERED: RSI MEDICATION KIT IV ONE (04:34)
[2023-03-15] MEDS ORDERED: MIDAZOLAM HCL 2 MG/2 ML INJ ONE (04:38)
[2023-03-15] MEDS ORDERED: MIDAZOLAM HCL IN 0.9 % NACL/PF 100 MG/100 ML BAG IVPB ONE (04:48)
[2023-03-15 04:50] LABS: Absolute Lymphocytes (CBC) 0.7 K/uL (0.7-4.9); Hematocrit 29.3 % (39.6-49.0); Lymphocytes % 17.3 % (15.3-44.8); MCV 87.4 fL (80-100); MPV 9.7 fL (7.6-11.3); RBC Red Blood Cell Count 3.35 M/uL (4.33-5.43)
[2023-03-15] MEDS ORDERED: MIDAZOLAM HCL 100 MG in NA CHLORIDE 0.9% 80 ML IV SCH (05:00)
[2023-03-15] MEDS ORDERED: FENTANYL CITR 100 MCG/2 ML IV ONE (05:00)
[2023-03-15 05:21] LABS: Albumin 2.1 g/dL (3.4-5.0); Bilirubin Total 2.2 mg/dL (0.2-1.0); Magnesium 1.6 mg/dL (1.6-2.4); Potassium 3.4 mEq/L (3.5-5.1); Protein, Total 5.4 g/dL (6.4-8.2)
[2023-03-15 05:44] LABS: Arterial Blood Carboxyhemoglob 0.9 % (0-1.5); Blood Gas Oxyhemoglobin 90.3 % (94-97); Blood O2 Saturation 92.4 % (92-98.5)
[2023-03-15] MEDS ORDERED: NA CHLORIDE 0.9% 1,000 ML IV ONE (06:05)
--- NOTE | 2023-03-15 07:56 | RAD REPORT ---
EXAM DESCRIPTION: [facility]15/2023 7:14 am CLINICAL HISTORY: CENTRAL LINE COMPARISON: Chest Single View dated 03/15/2023; Chest Single View dated 03/10/2023; Chest Pa And Lat (2 Views) dated 01/25/2023; Stone Protocol dated 03/10/2023 TECHNIQUE: Portable AP view of the chest. FINDINGS: Endotracheal tube is unchanged in position. Right IJ CVC has been placed, with catheter ti p projecting over the distal SVC. Bilateral central predominant fluffy opacities with interstitial pr ominence, more pronounced on the right, stable. Trace pleural effusion again suspected. No pneumotho rax or left effusion. The cardiomediastinal contours are unremarkable. IMPRESSION: Satisfactory positioning of right IJ CVC and ETT. Other stable findings as above, concerning for pulmonary edema versus multifocal pneumonia.
[2023-03-15] MEDS ORDERED: MIDAZOLAM HCL IN 0.9 % NACL/PF 100 MG/100 ML BAG IVPB SCH (08:00)
--- NOTE | 2023-03-15 08:22 | P.PN ---
Subjective Date of Service: 03/14/23 Subjective: No new changes, No C/O voiced, Improving Hypernatremia better; speech recommends pureed. OOB and ambulate. Patient continues to improve. Clinical symptoms are much better. Hopefully, patient can start ambulating and we can work on discharge planning. Review of Systems 10-point ROS is otherwise unremarkable Physical Examination - Vital Signs Temperature: 98.5 F Blood Pressure: 129/68 Pulse: 106 Respirations: 20 Pulse Ox (%): 100 - Physical Exam General: Alert, In no apparent distress, Oriented x3 Respiratory: Clear to auscultation bilaterally, Normal air movement Cardiovascular: Regular rate/rhythm, Normal S1 S2, No murmurs Gastrointestinal: Normal bowel sounds, Soft and benign, Non-distended, No tenderness Musculoskeletal: No clubbing, No swelling, No tenderness Neurological: Sensation intact, Cranial nerves 3-12 intact, Other (Patient with generalized weakness but he was more awake and alert and will need to be able to get him out of bed to ambulate him.) - Studies Medications List Reviewed: Yes Assessment & Plan - Problems (Diagnosis) (1) ALIS (acute kidney injury) Current Visit: Yes Status: Acute (2) Acute on chronic urinary retention Current Visit: Yes Status: Acute (3) Failure to thrive in adult Current Visit: Yes Status: Acute (4) Gross hematuria Current Visit: Yes Status: Acute (5) Hypernatremia Current Visit: Yes Status: Acute (6) Penile lesion Current Visit: No Status: Acute - Plan PLAN: 1. D5W continue to monitor hypernatremia 2. Urology & Nephrology rotation appreciated 3. OOB and ambulate 4. Advance diet 5. We need to work on discharge planning 6. Monitor blood pressure and blood sugars closely 7. Continue to monitor renal function 8. GI and DVT prophylaxis Discharge Plan: Home Plan to discharge in: Greater than 2 days - Advance Directives Does patient have a Living Will: No Does patient have a Durable POA for Healthcare: No - Code Status/Comfort Care Code Status Assessed: Yes Code Status: Full Code Critical Care: No Time Spent Managing PTS Care (In Minutes): 35
[2023-03-15] MEDS ORDERED: MIDAZOLAM HCL 2 MG/2 ML INJ IV PRN ×2 (08:23→08:52)
[2023-03-15] MEDS ORDERED: NA CHLORIDE 0.9% 250 ML IV PRN ×2 (08:23→08:52)
--- NOTE | 2023-03-15 08:31 | P.CNS ---
Date of Consult: 03/15/23 Reason for Consult: Respiratory failure Chief Complaint: Respiratory failure History of Present Illness: Patient is 82 years of age apparently aspirated was immediately intubated transferred to the ICU patient was originally admitted with lower extremity alyson a he has problems emptying his bladder seen by urology apparently he has had a progressive decline lives at home with family members patient has severe hyponatremia on admission which has been declining renal function is also improved significantly Allergies No Known Allergies Allergy (Verified 01/25/23 10:03) Home Medications: Atorvastatin Calcium [Lipitor*] 20 mg PO BEDTIME 01/25/23 Calcium Phosphate Trib/Vit D3 [Calcium + Vitamin D3 Gummies] 1 each PO DAILY 01/25/23 Sertraline HCl 50 mg PO DAILY 01/25/23 - Past Medical/Surgical History Diabetic: No -: Hyperlipidemia -: Depression/anxiety -: Circumcision 2022 Psychosocial/ Personal History: Patient is at home with his sister who helps care for him - Social History Smoking Status: Unknown if ever smoked Alcohol use: No CD- Drugs: No Caffeine use: Yes Place of Residence: Home Review of Systems is unable to be obtained Physical Examination Temp Pulse Resp BP Pulse Ox 98.5 F 106 H 20 129/68 100 03/15/23 08:22 03/15/23 08:22 03/15/23 08:22 03/15/23 08:22 03/15/23 08:22 General: Cachectic, Unresponsive Neck: Supple Respiratory: Crackles/rales (Right side) Cardiovascular: No edema, Regular rate/rhythm, Normal S1 S2 - Problems (1) Respiratory failure Current Visit: Yes Status: Acute Plan: Patient is 82 years of age was intubated admitted with respiratory failure he is got changes on the right side possibly aspirated plan to DC the Versed use as needed medication hemodynamically stable Labs reviewed hyponatremia and renal function have improved significantly urine culture shows no growth start patient on Rocephin as dictated by sputum cultures which have been ordered Qualifiers: Chronicity: acute
[2023-03-15] MEDS ORDERED: LORazepam 2 MG/ML VIAL IV PRN (08:52)
[2023-03-15] MEDS ORDERED: HALOPERIDOL LACT 5 MG/ML INJ IV PRN (08:52)
[2023-03-15] MEDS ORDERED: FENTANYL CITR 100 MCG/2 ML IV PRN (08:52)
[2023-03-15] MEDS: HYDRALAZINE HCL 25 MG TABLET PO SCH ×2 (08:55→12:33)
[2023-03-15] MEDS ORDERED: FAMOTIDINE 20 MG/2 ML VIAL IV SCH (09:00)
[2023-03-15] MEDS ORDERED: PANTOPRAZOLE 40 MG INJ IVP ONE (09:31)
[2023-03-15] MEDS ORDERED: SODIUM CHLORIDE 0.9% 10ML INJ IV PRN (09:31)
--- NOTE | 2023-03-15 09:43 | RAD REPORT ---
EXAM DESCRIPTION: RAD - Abdomen 1 View (KUB) - 03/15/2023 9:15 am CLINICAL HISTORY: gastric tube placement COMPARISON: No comparisons TECHNIQUE: Single AP view of the abdomen. FINDINGS: Enteric tube has been placed, its tip projects in the fundus of the stomach. Nonobstructiv e bowel gas pattern. No air-fluid levels, free air, or pneumatosis. Overlapping right extremity bones limit evaluation. No suspicious calcifications. No significant bony abnormality. IMPRESSION: Satisfactory positioning of the enteric tube.
[2023-03-15] MEDS: CEFTRIAXONE 1,000 MG in NA CHLORIDE 0.9% 50 ML IVPB SCH (09:48)
[2023-03-15] MEDS: INSULIN -REGULAR HUMAN 50 UNIT/0.5 ML ML SQ SCH ×4 (09:49→23:43)
[2023-03-15] MEDS: LORazepam 2 MG/ML VIAL IV PRN ×2 (10:05→23:45)
[2023-03-15] MEDS: KCL 20 MEQ/100 mL IVPB 20 MEQ/100 ML BAG IV SCH ×2 (10:11→11:14)
[2023-03-15] MEDS: D5W 1,000 ML with POTASSIUM CL 20 MEQ IV SCH ×4 (10:12→11:15)
[2023-03-15] MEDS ORDERED: ROCURONIUM 50 MG/5 ML VIAL IV ONE (11:59)
[2023-03-15] MEDS ORDERED: ETOMIDATE 20 MG/10 ML VIAL IV ONE (11:59)
[2023-03-15] MEDS ORDERED: D50W 25 GM/50 ML SYRINGE IV PRN (12:42)
[2023-03-15] MEDS ORDERED: GLUCAGON 1 MG/VIAL IM PRN (12:42)
[2023-03-15] MEDS ORDERED: FUROSEMIDE 40 MG/4 ML VIAL IV ONE (12:50)
[2023-03-15] MEDS: NOREPINEPHRINE BITARTRATE/D5W 4 MG/250 ML BAG IV SCH ×3 (12:58→21:59)
[2023-03-15] MEDS ORDERED: FUROSEMIDE 40 MG in NA CHLORIDE 0.9% 50 ML IV ONE (13:00)
--- NOTE | 2023-03-15 13:12 | RAD REPORT ---
EXAM DESCRIPTION: RAD - Chest Single View - 03/15/2023 5:16 am CLINICAL HISTORY: The patient is 82 years old and is Male; INTUBATION [facility] TECHNIQUE: Frontal view of the chest. COMPARISON: No relevant prior studies available. FINDINGS: LUNGS: Extensive bilateral interstitial and hazy airspace opacities, favoring infectious versus inflammatory process. PLEURAL SPACE: No appreciable pleural effusion. No pneumothorax. HEART: No cardiomegaly. MEDIASTINUM: Normal cardiomediastinal silhouette for portable technique and patient rotation. BONES/JOINTS: Healing left humeral neck fracture. VASCULATURE: Calcified atherosclerosis of the thoracic aorta. TUBES, LINES AND DEVICES: The endotracheal tube (ETT) is in satisfactory position. Enteric tube tip in the stomach. IMPRESSION: Extensive bilateral interstitial and hazy airspace opacities, favoring infectious versus inflammatory process. Electronically signed by: Berto Ruvalcaba MD 03/15/2023 5:31 AM CDT Due to temporary technical issues with the PACS/Fluency reporting system, reports are being signed by the in house radiologists without review as a courtesy to insure prompt reporting. The interpreting radiologist is fully responsible for the content of the report.
[2023-03-15] MEDS: D5 0.45 NS 1,000 ML IV SCH ×2 (13:14→23:56)
[2023-03-15] MEDS ORDERED: D5W 1,000 ML IV ONE (13:19)
[2023-03-15] MEDS: INSULIN GLARGINE 100 UNIT/ML SQ SCH (16:41)
--- NOTE | 2023-03-15 17:50 | PN ---
Date of Progress Note: 03/15/2023 Subjective: The patient was admitted with dehydration. The patient had acute kidney injury secondar y to prerenal with severe hypernatremia and hypokalemia. The patient started on fluid replacement an d sodium had trend down from 170 down to 146 over the last few days. Kidney function has been improv ed partly yesterday. The patient had respiratory distress and had to be intubated. During the intub ation according to the record, no hypotension, but after that the patient's blood pressure on the 90. The patient received Versed. Physical Examination: Vital Signs: Blood pressure 103/43, pulse of 95. The patient had urine output of 250 over the last 4 hours. Chest: Faint rales on the right side. Heart: S1, S2 regular. Abdomen: Soft, nontender. Extremities: No edema. Neuro: The patient on vent, sedated. The patient had urine output over the night of 2100. The rosario ent had emesis of 1 L. The patient was positive of 3 L. Laboratory Data: WBC 3.9, H and H 9.6/29.3. Sodium 146, potassium 3.4, bicarb 20, BUN 19, creatinin e 2. Glucose 273, calcium 7.5, phosphorous 3, magnesium of 1.6. Current Medications: The patient on include; 1.Ceftriaxone. 2.Flomax. 3.Clonidine. 4.Hydralazine. 5.Midazolam. 6.Zofran. 7.Pantoprazole. 8.Fentanyl. Assessment And Plan: 1.Acute kidney injury secondary to toxic acute tubular necrosis, poor perfusion, acute tubular necro sis, low blood pressure yesterday and sepsis. I am going to go ahead and change IV fluid to D5 half to establish more isotonic and decrease the rate to 100 and we will monitor the patient. 2.Hypertension, currently hypotension. Discontinue all blood pressure medications if map below 65. We will start on Levophed. 3.Septic shock secondary to pneumonia, aspiration. Start Levophed. Continue antibiotic. 4.Respiratory failure secondary to pneumonia, questionable with chest x-ray if there is any over vol ume. I am going to give single dose of Lasix and we will follow up. 5.Hypernatremia secondary to depletional, improved from 170-146 with the presence of low blood press ure. We will change IV fluid to isotonic and we will continue to monitor the patient. 6.Hematuria. Follow up with Urology. Continue p.r.n. irrigation. 7.Hypokalemia, hypomagnesemia. We will supplement. Time spent examining the patient [id number], reviewing data, lab and radiology, placing orders, dis cussing the case with the patient's nurse in ICU and hospitalist more than 35 minutes. JARRETT Voice ID: [id number] Report ID: [id number]
--- NOTE | 2023-03-15 19:53 | P.PN ---
Date of Service: 03/15/23 Subjective Patient apparently developed respiratory distress last night. He had not really eaten anything but apparently they had to put him on a nonrebreather. Patient remained hypoxic so they went ahead and notified ER physician who intubated the patient. ABGs will be ordered at this time. Chest x-ray to make sure ET tube is in place. Not really sure why patient developed respiratory distress. He may have been fluid overloaded. We will get an echocardiogram and reviewed this better. We will wean him off the ventilator aggressively. Gentle sedation as needed. I went ahead & spoke to the family regarding her current clinical status. Review of Systems 10-point ROS is otherwise unremarkable Physical Examination - Vital Signs Reviewed - Physical Exam General: Intubated and sedated Respiratory: Diminished breath sounds with rhonchi Cardiovascular: Regular rate/rhythm, No murmurs Gastrointestinal: Normal bowel sounds, Soft and benign, Non-distended, No tenderness Musculoskeletal: No clubbing, No swelling, No tenderness Neurological: No focal deficits; patient remains intubated and sedated. Assessment & Plan - Problems (Diagnosis) (1) ALIS (acute kidney injury) Current Visit: Yes Status: Acute (2) Acute on chronic urinary retention Current Visit: Yes Status: Acute (3) Failure to thrive in adult Current Visit: Yes Status: Acute (4) Gross hematuria Current Visit: Yes Status: Acute (5) Hypernatremia Current Visit: Yes Status: Acute (6) Penile lesion Current Visit: No Status: Acute - Plan Continue with plan of care as mentioned below: 1. D5W continue; and hopefully we can correct hypernatremia. Monitor volume status 2. Urology & Nephrology consultation appreciated 3. We need to gently wean off the ventilator 4. May need to start tube feedings; will attempt extubate in the morning 5. May need rehab placement or prison facility placement 6. Slightly hypotensive and patient has been started on Levophed to maintain blood pressure 7. Continue to monitor renal function 8. Monitor H&H 9. GI and DVT prophylaxis Discharge Plan: Rehab/SNF Plan to discharge in: Greater than 2 days - Advance Directives Does patient have a Living Will: No Does patient have a Durable POA for Healthcare: No - Code Status/Comfort Care Code Status Assessed: Yes Code Status: Full Code Critical Care: No Time Spent Managing PTS Care (In Minutes): 35
[2023-03-15] MEDS: TAMSULOSIN 0.4 MG SR CAP PO SCH (20:42)
[2023-03-15] MEDS: PANTOPRAZOLE 40 MG INJ IVP SCH (20:43)
[2023-03-16] MEDS: NOREPINEPHRINE BITARTRATE/D5W 4 MG/250 ML BAG IV SCH ×4 (01:09→13:55)
[2023-03-16 05:33] LABS: Absolute Lymphocytes (CBC) 0.9 K/uL (0.7-4.9); Hematocrit 24.6 % (39.6-49.0); Lymphocytes % 7.8 % (15.3-44.8); MCV 85.4 fL (80-100); MPV 9.3 fL (7.6-11.3); RBC Red Blood Cell Count 2.87 M/uL (4.33-5.43)
[2023-03-16 05:52] LABS: Albumin 1.7 g/dL (3.4-5.0); Magnesium 1.6 mg/dL (1.6-2.4); Phosphorus 3.4 mg/dL (2.5-4.9)
[2023-03-16] MEDS: INSULIN -REGULAR HUMAN 50 UNIT/0.5 ML ML SQ SCH ×4 (05:59→23:22)
[2023-03-16 06:06] LABS: Arterial Blood Carboxyhemoglob 0.9 % (0-1.5); Blood Gas Oxyhemoglobin 96.5 % (94-97); Blood O2 Saturation 98.9 % (92-98.5)
[2023-03-16 06:14] LABS: ALT/SGPT 29 U/L (16-61); AST/SGOT 37 U/L (15-37); Albumin 1.7 g/dL (3.4-5.0); Alkaline Phosphatase 60 U/L (45-117); BUN Blood Urea Nitrogen 26 mg/dL (7-18); Bicarbonate 22 mEq/L (21-32); Bilirubin Total 2.1 mg/dL (0.2-1.0); Glomerular Filtration Rate 24 ml/min (=/>90); Glucose Level 245 mg/dL (74-106); NT PRO-BNP 1664 pg/mL (<450); Phosphorus 3.3 mg/dL (2.5-4.9); Protein, Total 5.3 g/dL (6.4-8.2); Sodium Level 140 mEq/L (136-145)
[2023-03-16 06:18] LABS: Iron < 10.0 ug/dL (65-175)
[2023-03-16] MEDS: FENTANYL CITR 100 MCG/2 ML IV PRN (06:20)
--- NOTE | 2023-03-16 08:18 | RAD REPORT ---
EXAM DESCRIPTION: RADChest Single View03/16/2023 5:13 am CLINICAL HISTORY: respiratory failure COMPARISON: Abdomen 1 View (KUB) dated 03/15/2023; Chest Single View dated 03/15/2023; Chest Single Vi ew dated 03/15/2023; Chest Single View dated 03/10/2023 TECHNIQUE: Portable AP view of the chest. FINDINGS: Endotracheal tube, enteric tube, and right IJ CVC are unchanged. Patchy bilateral airspace opacities more pronounced on the right, with slight improvement in the left more than right perihila r aeration compared to the prior exam. The lungs are clear. No pneumothorax or effusion. The cardiom ediastinal contours are unremarkable. IMPRESSION: Improving central opacities which may relate to improving congestion. Other stable findi ngs as above.
[2023-03-16] MEDS: D5 0.45 NS 1,000 ML IV SCH (08:32)
[2023-03-16] MEDS: PANTOPRAZOLE 40 MG INJ IVP SCH ×2 (08:32→21:25)
[2023-03-16] MEDS: CEFTRIAXONE 1,000 MG in NA CHLORIDE 0.9% 50 ML IVPB SCH (08:32)
[2023-03-16] MEDS ORDERED: ALBUMIN HUMAN 25% 100 ML IV ONE (08:37)
[2023-03-16] MEDS ORDERED: FENTANYL CITR 100 MCG/2 ML IV ONE (09:00)
[2023-03-16] MEDS: SOD FERRIC GLUC COMPLX/SUCROSE 125 MG in NA CHLORIDE 0.9% 100 ML IV SCH (09:07)
[2023-03-16] MEDS: DEXMEDETOMIDINE HCL 200 MCG in NA CHLORIDE 0.9% 98 ML IV SCH ×3 (09:39→23:12)
[2023-03-16] MEDS ORDERED: NA CHLORIDE 0.9% 500 ML IV ONE ×2 (11:06→13:13)
--- NOTE | 2023-03-16 12:08 | P.PN ---
Subjective Date of Service: 03/16/23 Chief Complaint: Respiratory failure Patient experiencing agitation was started on dexmedetomidine drip is also on Levophed due to hypotension initial satisfactory on 40% FiO2 satting 100% Review of Systems is unable to be obtained Physical Examination - Vital Signs Temperature: 98.8 F Blood Pressure: 132/43 Pulse: 67 Respirations: 25 Pulse Ox (%): 100 - Physical Exam General: Unresponsive Neck: Supple Respiratory: Clear to auscultation bilaterally, Diminished Cardiovascular: No edema, Regular rate/rhythm, Normal S1 S2 - Studies Laboratory Data (last 24 hrs) 03/10/23 21:23: Sodium 167 H* Medications List Reviewed: Yes Assessment And Plan - Current Problems (Diagnosis) (1) Respiratory failure Current Visit: Yes Status: Acute Plan: Patient admitted with respiratory failure oxygenation satisfactory x-ray shows some changes on the right side plan to wean down on the ventilator dexmedetomidine drip with IV fluids wean off the Levophed is to have a respiratory alkalosis renal function is stable sputum cultures pending Qualifiers: Chronicity: acute
[2023-03-16] MEDS ORDERED: AMINO AC 8 %/D10W/ELECTROLYTES 2,000 ML IV.SOLN IV SCH (15:00)
[2023-03-16] MEDS ORDERED: COSYNTROPIN 0.25 MG VIAL IV ONE (15:00)
--- NOTE | 2023-03-16 15:03 | P.PN ---
Subjective Date of Service: 03/16/23 Chief Complaint: Respiratory failure Subjective: Other (Remains bedridden) Physical Examination - Vital Signs Temperature: 98.8 F Blood Pressure: 157/51 Pulse: 66 Respirations: 22 Pulse Ox (%): 100 - Physical Exam General: Other (chronically ill-appearing) HEENT: Atraumatic, Normocephalic Neck: Supple Respiratory: Other (symmetric chest expansion) Cardiovascular: No rubs, No murmurs Gastrointestinal: Soft and benign, No guarding Musculoskeletal: No clubbing Integumentary: No warmth Neurological: Normal tone Urinary: Other (no bladder distention) External genitalia: Deferred Rectal: Deferred - Studies Laboratory Data (last 24 hrs) 03/10/23 21:23: Sodium 167 H* Medications List Reviewed: Yes Assessment And Plan - Plan #ALIS 2/2 ATN + obstructive uropathy Improving Aim for total volume intake 75 cc/hr as below # Postobstructive/post ATN diuresis Airm for total volume intake 75 cc/hr Start Clinimix 55 cc/hr Minimize levo gtt & precedex gtt rates # Hematuria, asymmetric bladder thickening F/u urine cytology For cystoscopy at some point # Nephrotic-range proteinuria Random UPCR 6.8 g Follow-up proteinuria workup # Septic shock, aspiration pneumonia F/u troponin, DHEAS, ACTH Abx F/u cultures Cosyntropin stim test neg. no evidence of adrenal insufficiency. No indication for stress dose steroids. # Hypernatremia Improved Volume intake as above # Anemia F/u iron panel pRBC transf prn for Hgb < 7.0 Time spent > 35 minutes
[2023-03-16] MEDS: NA CHLORIDE 0.9% IV SCH (15:22)
[2023-03-16] MEDS: NOREPINEPHRINE IV SCH (15:22)
[2023-03-16] MEDS ORDERED: DEXTROSE 10%-WATER 500 ML IV SCH (16:00)
[2023-03-16] MEDS ORDERED: AA 5%/D20W/ELECTROLYTES-TPN 2,000 ML, Lipids 20% 250 ML with MULTIVITAMINS INJ 10 ML IV SCH ×3 (17:00)
[2023-03-16] MEDS: INSULIN GLARGINE 100 UNIT/ML SQ SCH (17:18)
[2023-03-16 17:43] LABS: Albumin 1.9 g/dL (3.4-5.0); Bilirubin Total 1.8 mg/dL (0.2-1.0); Magnesium 1.8 mg/dL (1.6-2.4); Phosphorus 3.3 mg/dL (2.5-4.9); Potassium 3.4 mEq/L (3.5-5.1); Protein, Total 5.5 g/dL (6.4-8.2)
[2023-03-16] MEDS: KCL 20 MEQ/100 mL IVPB 20 MEQ/100 ML BAG IV SCH ×2 (18:23→20:03)
[2023-03-16] MEDS: TAMSULOSIN 0.4 MG SR CAP PO SCH (20:04)
[2023-03-17 05:21] LABS: Absolute Lymphocytes (CBC) 0.5 K/uL (0.7-4.9); Hematocrit 20.2 % (39.6-49.0); Lymphocytes % 4.7 % (15.3-44.8); MCV 85.8 fL (80-100); MPV 9.5 fL (7.6-11.3); RBC Red Blood Cell Count 2.35 M/uL (4.33-5.43)
[2023-03-17 05:47] LABS: Albumin 1.7 g/dL (3.4-5.0); Magnesium 1.8 mg/dL (1.6-2.4); Potassium 3.5 mEq/L (3.5-5.1); Troponin High Sensitivity 51.2 pg/mL (<58.9)
[2023-03-17] MEDS: INSULIN -REGULAR HUMAN 50 UNIT/0.5 ML ML SQ SCH ×3 (06:27→17:32)
[2023-03-17] MEDS ORDERED: DESMOPRESSIN 4 MCG/ML AMP IV STA (06:28)
[2023-03-17] MEDS ORDERED: THIAMINE 200 MG/2 ML INJ IVP STA (06:30)
[2023-03-17] MEDS: D5W 1,000 ML IV SCH ×3 (06:46→17:04)
[2023-03-17] MEDS ORDERED: KCL 20 MEQ/100 mL IVPB 20 MEQ/100 ML BAG IV ONE (07:00)
[2023-03-17 07:06] LABS: Blood Morphology Comment NOTED (NOT SEEN); Platelet Estimate DECR; Polychromasia SLIGHT; White Blood Cell Scan OK (OK)
[2023-03-17] MEDS: PANTOPRAZOLE 40 MG INJ IVP SCH ×2 (08:09→20:27)
[2023-03-17] MEDS: CEFTRIAXONE 1,000 MG in NA CHLORIDE 0.9% 50 ML IVPB SCH (08:09)
[2023-03-17] MEDS ORDERED: NA CHLORIDE 0.9% 250 ML ONE (08:15)
[2023-03-17] MEDS: SOD FERRIC GLUC COMPLX/SUCROSE 125 MG in NA CHLORIDE 0.9% 100 ML IV SCH (08:33)
[2023-03-17] MEDS: FENTANYL CITR 100 MCG/2 ML IV PRN (09:49)
--- NOTE | 2023-03-17 10:50 | P.PN ---
Subjective Date of Service: 03/17/23 Chief Complaint: Respiratory failure Patient is unresponsive so anemic Review of Systems is unable to be obtained Physical Examination - Vital Signs Temperature: 98.9 F Blood Pressure: 145/48 Pulse: 63 Respirations: 16 Pulse Ox (%): 100 - Physical Exam General: Unresponsive Respiratory: Clear to auscultation bilaterally Cardiovascular: No edema, Regular rate/rhythm - Studies Medications List Reviewed: Yes Assessment And Plan - Current Problems (Diagnosis) (1) Respiratory failure Current Visit: Yes Status: Acute Plan: Patient admitted with respiratory failure currently is unresponsive patient is hypernatremic renal function is improving severely anemic requiring blood transfusion chest x-ray reviewed minimal changes on the right side endotracheal tube satisfactory position sputum culture still shows 4+ coagulase positive bacteria ID is pending patient is also on low-dose Levophed have ordered low- dose Decadron serum cortisol level urine culture showed no growth Qualifiers: Chronicity: acute
--- NOTE | 2023-03-17 12:57 | P.PN ---
Subjective Date of Service: 03/17/23 Chief Complaint: Respiratory failure Subjective: Other (remains intubated/sedated) Physical Examination - Vital Signs Temperature: 98.9 F Blood Pressure: 132/51 Pulse: 58 Respirations: 25 Pulse Ox (%): 100 - Physical Exam General: Other (chronically ill-appearing) HEENT: Atraumatic, Normocephalic Neck: Supple Respiratory: Other (symmetric chest expansion) Cardiovascular: No rubs, No murmurs Gastrointestinal: Soft and benign, No guarding Musculoskeletal: No clubbing Integumentary: No warmth Neurological: Normal tone Urinary: Other (no bladder distention) External genitalia: Deferred Rectal: Deferred - Studies Medications List Reviewed: Yes Assessment And Plan - Plan #ALIS 2/2 ATN + obstructive uropathy Improved Aim for total volume intake 75 cc/hr as below # Postobstructive/post ATN diuresis Airm for total volume intake 75 cc/hr Start Clinimix 55 cc/hr Minimize levo gtt & precedex gtt rates # Hematuria, asymmetric bladder thickening F/u urine cytology For cystoscopy at some point # Nephrotic-range proteinuria Random UPCR 6.8 g Follow-up proteinuria workup # Septic shock, aspiration pneumonia F/u troponin, DHEAS, ACTH Abx F/u cultures Cosyntropin stim test neg. no evidence of adrenal insufficiency. No indication for stress dose steroids. # Hypernatremia HyperNa Serum Na 153 Give 2L D5W IV over 8 hrs Give DDAVP 1 mcg IV x 1 # HypoK KCl repletion today # HypoMg Mg repletion today check renal panel and serum magnesium this afternoon # Anemia Received 2u pRBC rans on 03/17 Time spent > 35 minutes
[2023-03-17] MEDS ORDERED: MAGNESIUM SULFATE 1 gm IVPB 1 GM/100 ML BAG IV ONE ×2 (13:02→16:39)
[2023-03-17] MEDS: NOREPINEPHRINE IV SCH (13:49)
[2023-03-17] MEDS: NA CHLORIDE 0.9% IV SCH (13:49)
--- NOTE | 2023-03-17 15:49 | P.PN ---
Date of Service: 03/16/23 Subjective Remains on the ventilator. Nephrology wanted to increase renal perfusion so Levophed is added. Currently on low-dose sedation medication. Assessed patient in AM. Working on weaning him off the ventilator of the next 24 to 48 hours. I spoke with patient's family members regarding patient's current plan of care. Continue monitoring renal function. Hematuria improving. Monitor H&H. Hyponatremia stable. Review of Systems 10-point ROS is otherwise unremarkable Physical Examination - Vital Signs Reviewed - Physical Exam General: Intubated and sedated Respiratory: Diminished breath sounds with rhonchi Cardiovascular: Regular rate/rhythm, No murmurs Gastrointestinal: Normal bowel sounds, Soft and benign, Non-distended, No tenderness Musculoskeletal: No clubbing, No swelling, No tenderness Neurological: No focal deficits; generalized weakness; patient remains intubated and sedated. Assessment & Plan - Problems (Diagnosis) (1) ALIS (acute kidney injury) Current Visit: Yes Status: Acute (2) Acute on chronic urinary retention Current Visit: Yes Status: Acute (3) Failure to thrive in adult Current Visit: Yes Status: Acute (4) Gross hematuria Current Visit: Yes Status: Acute (5) Hypernatremia Current Visit: Yes Status: Acute (6) Penile lesion Current Visit: No Status: Acute - Plan Continue with plan of care as mentioned below: 1. D5W continue; Monitor volume status; sodium stable; management per Nephrology 2. Urology & Nephrology consultation appreciated 3. Weaning off the ventilator; pulmonary consulted 4. TPN started; 5. May need rehab placement or half-way facility placement 6. Continue to monitor renal function 7. Monitor H&H 8. GI and DVT prophylaxis Discharge Plan: Rehab/SNF Plan to discharge in: Greater than 2 days - Advance Directives Does patient have a Living Will: No Does patient have a Durable POA for Healthcare: No - Code Status/Comfort Care Code Status Assessed: Yes Code Status: Full Code Critical Care: Yes Time Spent Managing PTS Care (In Minutes): 35
[2023-03-17 16:22] LABS: Albumin 1.5 g/dL (3.4-5.0); Magnesium 1.8 mg/dL (1.6-2.4); Phosphorus 2.4 mg/dL (2.5-4.9); Potassium 3.3 mEq/L (3.5-5.1)
[2023-03-17] MEDS ORDERED: POTASSIUM PHOS 20 MM in NA CHLORIDE 0.9% 500 ML IV ONE (16:39)
[2023-03-17] MEDS ORDERED: DESMOPRESSIN 4 MCG/ML AMP IV ONE (16:41)
[2023-03-17] MEDS ORDERED: AA 5%/D20W/ELECTROLYTES-TPN 2,000 ML IV SCH (17:00)
[2023-03-17] MEDS: INSULIN GLARGINE 100 UNIT/ML SQ SCH (17:33)
[2023-03-17] MEDS: TAMSULOSIN 0.4 MG SR CAP PO SCH (20:25)
[2023-03-17] MEDS: dexAMETHasone 4 MG/ML VIAL IV SCH (20:27)
[2023-03-18 05:21] LABS: Absolute Lymphocytes (CBC) 0.4 K/uL (0.7-4.9); Hematocrit 24.9 % (39.6-49.0); Lymphocytes % 2.9 % (15.3-44.8); MCV 86.2 fL (80-100); MPV 9.9 fL (7.6-11.3); RBC Red Blood Cell Count 2.89 M/uL (4.33-5.43)
[2023-03-18 05:38] LABS: Albumin 1.5 g/dL (3.4-5.0); Phosphorus 3.3 mg/dL (2.5-4.9); Potassium 3.8 mEq/L (3.5-5.1)
[2023-03-18] MEDS: INSULIN -REGULAR HUMAN 50 UNIT/0.5 ML ML SQ SCH ×4 (06:33→17:32)
[2023-03-18] MEDS ORDERED: DESMOPRESSIN 4 MCG/ML AMP IV ONE (07:30)
[2023-03-18] MEDS ORDERED: KCL 20 MEQ/100 mL IVPB 20 MEQ/100 ML BAG IV SCH (08:00)
[2023-03-18] MEDS: CEFTRIAXONE 1,000 MG in NA CHLORIDE 0.9% 50 ML IVPB SCH (08:01)
[2023-03-18] MEDS: PANTOPRAZOLE 40 MG INJ IVP SCH ×2 (08:01→21:10)
[2023-03-18] MEDS: dexAMETHasone 4 MG/ML VIAL IV SCH (08:01)
[2023-03-18 08:11] LABS: Blood Morphology Comment NOT SEEN (NOT SEEN); Platelet Estimate ADEQ
[2023-03-18] MEDS: SOD FERRIC GLUC COMPLX/SUCROSE 125 MG in NA CHLORIDE 0.9% 100 ML IV SCH (08:32)
--- NOTE | 2023-03-18 10:29 | P.PN ---
Subjective Date of Service: 03/18/23 Chief Complaint: Respiratory failure Patient is doing much better today hemodynamically stable off vasopressors no recent bleeding tolerating spontaneous breathing trial Review of Systems is unable to be obtained Physical Examination - Vital Signs Temperature: 97.7 F Blood Pressure: 122/60 Pulse: 68 Respirations: 20 Pulse Ox (%): 98 - Physical Exam General: Unresponsive Neck: No Thyromegaly Respiratory: Diminished Cardiovascular: Edema Gastrointestinal: Normal bowel sounds, Soft and benign - Studies Medications List Reviewed: Yes Assessment And Plan - Current Problems (Diagnosis) (1) Respiratory failure Current Visit: Yes Status: Acute Plan: Patient is 82 years of age admitted with respiratory failure doing well tolerated spontaneous breathing trial we will extubate insert the NG tube start tube feeds is mildly hypernatremic renal function has improved sputum culture shows Staph aureus we will change to cefazolin patient's baseline serum cortisol was normal DC dexamethasone repeat chest x-ray Qualifiers: Chronicity: acute
--- NOTE | 2023-03-18 10:36 | P.PN ---
Date of Service: 03/17/23 Subjective Patient did well on spontaneous mode today. He still very lethargic and I am hoping he wakes up a little bit better. Weaning him off of Levophed. Patient had a increased amount of urine output yesterday. Nephrology is concerned for renal recovery or diabetes insipidus. Patient given desmopressin. Monitor urine output closely. Review of Systems 10-point ROS is otherwise unremarkable Physical Examination - Vital Signs Reviewed - Physical Exam General: Intubated and sedated Respiratory: Diminished breath sounds with rhonchi Cardiovascular: Regular rate/rhythm, No murmurs Gastrointestinal: Normal bowel sounds, Soft and benign, Non-distended, No tenderness Musculoskeletal: No clubbing, No swelling, No tenderness Neurological: No focal deficits; generalized weakness; patient remains intubated and sedated. Assessment & Plan - Problems (Diagnosis) (1) ALIS (acute kidney injury) Current Visit: Yes Status: Acute (2) Acute on chronic urinary retention Current Visit: Yes Status: Acute (3) Failure to thrive in adult; critical care myopathy Current Visit: Yes Status: Acute (4) Gross hematuria; acute blood loss anemia Current Visit: Yes Status: Acute (5) Hypernatremia Current Visit: Yes Status: Acute (6) Penile lesion Current Visit: No Status: Acute - Plan Continue with plan of care as mentioned below: 1. D5W continue; Monitor volume status; sodium stable; management per Nephrology 2. Urology & Nephrology consultation appreciated 3. Weaning off the ventilator; patient did well with spontaneous breathing trial; anticipate extubation over the next 24 hours-pulmonary consulted 4. TPN started; hopefully once we extubate and we can start feeding patient. Otherwise we may start tube feeds. 5. Rehab placement vs [facility] facility placement 6. Continue to monitor renal function 7. Monitor H&H; s/p 2u PRBC; H&H stable 8. GI and DVT prophylaxis Discharge Plan: Rehab/SNF Plan to discharge in: Greater than 2 days - Advance Directives Does patient have a Living Will: No Does patient have a Durable POA for Healthcare: No - Code Status/Comfort Care Code Status Assessed: Yes Code Status: Full Code Critical Care: Yes Time Spent Managing PTS Care (In Minutes): 35
[2023-03-18] MEDS ORDERED: ALBUMIN HUMAN 25% 100 ML IV ONE (10:37)
--- NOTE | 2023-03-18 10:42 | P.PN ---
Date of Service: 03/18/23 Subjective Patient was extubated today. Patient is being fed by Dobbhoff tube. Patient looks to be doing much better. Patient is having some diarrhea and we changed his tube feedings to Glucerna 1.5. Dietary consultation as well. Stool cultures pending. Renal function has improved quite a bit. Hyponatremia stable. Hematuria has resolved. We will start working with physical therapy and Occupational Therapy. Patient with critical care myopathy. Hopefully, patient continues to improve over the next 24 to 48 hours. Patient will need inpatient rehab versus custodial facility placement. Review of Systems 10-point ROS is otherwise unremarkable Physical Examination - Vital Signs Reviewed - Physical Exam General: Awake and alert HEENT: Dobhoff tube in place Respiratory: Diminished breath sounds Cardiovascular: Regular rate/rhythm, No murmurs Gastrointestinal: Normal bowel sounds, Soft and benign, Non-distended, No tenderness Musculoskeletal: No clubbing, No swelling, No tenderness Neurological: No focal deficits; generalized weakness; Assessment & Plan - Problems (Diagnosis) (1) A acute respiratory failure Current Visit: Yes Status: Acute (2) Acute on chronic urinary retention Current Visit: Yes Status: Acute (3) Failure to thrive in adult; critical care myopathy Current Visit: Yes Status: Acute (4) Gross hematuria; acute blood loss anemia Current Visit: Yes Status: Acute (5) Hypernatremia Current Visit: Yes Status: Acute (6) ALIS (acute kidney injury) Current Visit: No Status: Acute - Plan Continue with plan of care as mentioned below: 1. Monitor volume status; sodium stable; management per Nephrology 2. Urology & Nephrology consultation appreciated 3. Weaned off the ventilator; Aspiration precautions 4. Change to Glucerna 1.5 5. Rehab placement vs custodial facility placement 6. Continue to monitor renal function 7. Monitor H&H; s/p 2u PRBC; H&H currently has been stable 8. GI and DVT prophylaxis Discharge Plan: Rehab/SNF Plan to discharge in: Greater than 2 days - Advance Directives Does patient have a Living Will: No Does patient have a Durable POA for Healthcare: No - Code Status/Comfort Care Code Status Assessed: Yes Code Status: Full Code Critical Care: Yes Time Spent Managing PTS Care (In Minutes): 35
[2023-03-18] MEDS: ENSURE HIGH PROTEIN 237 ML CAN PO SCH ×2 (11:08→16:12)
--- NOTE | 2023-03-18 11:23 | RAD REPORT ---
EXAM DESCRIPTION: RAD - Abdomen 1 View (KUB) - 03/18/2023 9:28 am CLINICAL HISTORY: nasal gastro tube placement COMPARISON: Abdomen 1 View (KUB) dated 03/15/2023 TECHNIQUE: Single AP view of the abdomen. FINDINGS: Weighted enteric tube tip loops in the fundus of the stomach. Nonobstructive bowel gas pat tern. No air-fluid levels, free air, or pneumatosis. No suspicious calcifications. No significant bony abnormality. IMPRESSION: Weighted enteric tube tip loops in the fundus of the stomach.
--- NOTE | 2023-03-18 14:30 | P.PN ---
Subjective Date of Service: 03/18/23 Chief Complaint: Respiratory failure Subjective: Other (extubated today) Physical Examination - Vital Signs Temperature: 97.3 F Blood Pressure: 124/46 Pulse: 76 Respirations: 26 Pulse Ox (%): 98 - Physical Exam General: Other (appears acutely ill) HEENT: Atraumatic, Normocephalic Neck: Supple Respiratory: Other (symmetric chest expansion) Cardiovascular: No rubs, No murmurs Gastrointestinal: Soft and benign, No guarding Musculoskeletal: No clubbing Integumentary: No warmth Neurological: Other (nonfocal) Urinary: Other (no bladder distention) External genitalia: Deferred Rectal: Deferred - Studies Medications List Reviewed: Yes Assessment And Plan - Plan #ALIS 2/2 ATN + obstructive uropathy Improved Aim for total volume intake 75 cc/hr as below # Postobstructive/post ATN diuresis Airm for total volume intake 75 cc/hr Now on tube feeding Received DDAVP today Minimize levo gtt & precedex gtt rates # Hematuria, asymmetric bladder thickening F/u urine cytology For cystoscopy at some point # Nephrotic-range proteinuria Random UPCR 6.8 g Follow-up proteinuria workup # Septic shock, aspiration pneumonia Was intubated, extubated on 03/18 Abx F/u cultures Cosyntropin stim test neg. no evidence of adrenal insufficiency. No indication for stress dose steroids. # Hypernatremia Improved DDAVP received today IV hydration as above # HypoK KCl repletion prn # HypoMg Mg repletion prn # Anemia Received 2u pRBC ransf on 03/17 Time spent > 35 minutes
--- NOTE | 2023-03-18 16:00 | RAD REPORT ---
EXAM DESCRIPTION: RADChest Single View03/18/2023 3:06 pm CLINICAL HISTORY: pneumonia COMPARISON: Abdomen 1 View (KUB) dated 03/18/2023; Chest Single View dated 03/16/2023; Abdomen 1 View (KUB) dated 03/15/2023; Chest Single View dated 03/15/2023 TECHNIQUE: Portable AP view of the chest. FINDINGS: Endotracheal tube has been removed. Enteric tube in place coursing below the lower filled margin. Right IJ CVC is unchanged in position. Improvement of aeration throughout the right lung. Dev eloping patchy left basilar airspace opacities. No pneumothorax or effusion. The cardiomediastinal c ontours are unremarkable. IMPRESSION: Improvement of aeration throughout the right lung. Developing patchy left basilar airspa ce opacities. Findings may relate to waxing waning changes in setting of pulmonary edema, or fleeting inflammatory pneumonitis.
[2023-03-18] MEDS: CEFAZOLIN 1 GM in NA CHLORIDE 0.9% 50 ML IVPB SCH (16:29)
[2023-03-18] MEDS: INSULIN GLARGINE 100 UNIT/ML SQ SCH (17:33)
[2023-03-18] MEDS: TAMSULOSIN 0.4 MG SR CAP PO SCH (21:11)
[2023-03-19] MEDS: D5W 1,000 ML IV SCH ×3 (02:20→19:17)
[2023-03-19 07:47] LABS: Absolute Lymphocytes (CBC) 0.8 K/uL (0.7-4.9); Hematocrit 25.4 % (39.6-49.0); Lymphocytes % 4.8 % (15.3-44.8); MCV 86.4 fL (80-100); MPV 9.9 fL (7.6-11.3); RBC Red Blood Cell Count 2.94 M/uL (4.33-5.43)
[2023-03-19 07:52] LABS: Potassium 3.5 mEq/L (3.5-5.1)
[2023-03-19 07:53] LABS: Albumin 1.8 g/dL (3.4-5.0); Phosphorus 2.2 mg/dL (2.5-4.9)
[2023-03-19] MEDS: JUVEN PACKET PO SCH ×2 (09:00→20:16)
[2023-03-19 12:52] LABS: C.diff Antigen/Toxin Ag neg : Tox neg (NEG : NEG)
--- NOTE | 2023-03-19 13:30 | P.PN ---
Subjective Date of Service: 03/19/23 Chief Complaint: Respiratory failure He was extubated yesterday. He appears to be doing well this morning. He is alert and oriented x2 to person and place. This is near his mental baseline per RN. He denies any fevers, chills, shortness of breath, chest pain, abdominal pain, nausea/vomiting, hematochezia, melena, or hematuria. Review of Systems 10-point ROS is otherwise unremarkable General: Weakness (generalized) Physical Examination - Vital Signs Temperature: 97.2 F Blood Pressure: 142/61 Pulse: 70 Respirations: 19 Pulse Ox (%): 100 - Physical Exam General: Alert, In no apparent distress, Oriented x2 HEENT: Atraumatic, Mucous membr. moist/pink, Other (NG tube in place), Sclerae nonicteric Neck: JVD not distended Respiratory: Clear to auscultation bilaterally, Diminished Cardiovascular: No edema, Regular rate/rhythm, Normal S1 S2, No gallops, No rubs, No murmurs Gastrointestinal: Normal bowel sounds, Soft and benign, Non-distended, No tenderness, No rebound, No guarding Musculoskeletal: No clubbing Integumentary: No rashes Neurological: Normal speech, Normal affect - Studies Medications List Reviewed: Yes Assessment And Plan - Plan # Severe Sepsis likely secondary to Methicillin-Sensitive Staphylococcus Aureus Pneumonia He met SIRS criteria based on temperature HR > 90 bpm, RR > 20 breaths/min, WBC > 12,000, and the suspected source is pulmonary. Severe sepsis is suspected due to concern for tissue hypoperfusion/organ dysfunction based on acute respiratory failure requiring intubation, creatinine >2.0 mg/dL (without ESRD), and, lactic acid > 2 mmol/L. - Sepsis order set was initiated - Chest x-ray (03/15) = "extensive bilateral interstitial and hazy airspace opacities, favoring infectious versus inflammatory process." - Sputum culture = MSSA - Lactate trend: 2.2 -> 2.3 -> 2.2 - Blood cultures drawn - Broad spectrum antibiotics started: Cefazolin - In regards to fluids: - 30 mL/kg of IV fluids was not administered given SBP > 90, MAP > 65, lactic acid < 4 # KDIGO Stage III Acute Kidney Injury due to above # Severe Hypernatremia - improved - Nephrology consulted - recommendations appreciated - Creatinine = 4.6 -> 2.37 - Urinalysis = 3+ blood, 250 leukocyte esterase, > 50 RBCs, > 50 WBCs, 2+ protein - Renal ultrasound = "Mild bilateral hydronephrosis. Markedly distended, with lobulated layering debris. Ferris catheter in place." - Monitor creatinine and urine output - Renally dose medications # Acute on Chronic Anemia with concern for Upper Gastrointestinal Bleed On 03/17, had what appeared to be coffee-ground emesis. His hemoglobin was 6.8 and he was given 2 units pRBCS - Consulted Gastroenterology - recommendations appreciated - Serial H&H - Transfuse for Hgb < 7.0 - 2 large bore IVs - Pantoprazole 40 mg IV BID - IV fluids per Nephrology # Acute on Chronic Urinary Retention # Gross Hematuria # Penile Lesion - CT abdomen/pelvis = "Mild bilateral hydronephrosis. Perhaps this is related to a chronic bladder outlet obstruction. The wall of bladder is thickened probably related to chronic bladder outlet obstruction. There is also asymmetric thickening of the superior bladder wall which raises the possibility of the mass. Direct visualization would be helpful. The wall of the renal pelves bilaterally appears thickened. This is nonspecific but can be seen with inflammation. Cholelithiasis with gallbladder distention" - Urology consulted - recommendations appreciated - Continue tamsulosin # Cholelithiasis with Gallbladder Distention - Ordered RUQ ultrasound - If positive, plan to consult General Surgery # Demand Ischemia (Type II Non-ST Segment Elevation Myocardial Infarction) due to above - Evaluation thus far: - EKG: without STEMI Criteria, trend - Serial troponin: 48.5 -> 62.7 -> 60.1 -> 51.2 - Ordered transthoracic echocardiogram - Management plan: - Consult Cardiology - recommendations appreciated - Hold off on aspirin given concern for GI bleed - If coronary artery disease confirmed, consider starting beta-jeaneth, JANET- inhibitor/ARB, statin with 24 hours Bharath Church M.D.
[2023-03-19] MEDS: INSULIN -REGULAR HUMAN 50 UNIT/0.5 ML ML SQ SCH ×2 (13:52→18:00)
--- NOTE | 2023-03-19 14:36 | RAD REPORT ---
EXAM DESCRIPTION: RAD - Chest Single View - 03/19/2023 1:40 pm CLINICAL HISTORY: pneumonia Chest pain. COMPARISON: Chest Single View dated 03/18/2023; Abdomen 1 View (KUB) dated 03/18/2023; Chest Single Vi ew dated 03/16/2023; Abdomen 1 View (KUB) dated 03/15/2023 FINDINGS: Portable technique limits examination quality. Mild interstitial pulmonary edema suspected, unchanged. The heart is moderately enlarged. Right-sided venous catheter its tip in the SVC.Enteric tube coils in the stomach. IMPRESSION: Stable chest since 03/18/2023.
--- NOTE | 2023-03-19 14:44 | RAD REPORT ---
EXAM DESCRIPTION: RAD - Abdomen 1 View (KUB) - 03/19/2023 2:36 pm CLINICAL HISTORY: Device placement Dobhoff tube placement FINDINGS: The tip off Dobhoff tube is coiled within the gastric fundus. The tip of the tube lies ap proximately 8 centimeters from the GE junction. The patient's nurse was notified at 12:48 p.m. March 19, 2023
--- NOTE | 2023-03-19 14:58 | RAD REPORT ---
EXAM DESCRIPTION: CT - Head Brain Wo Cont - 03/19/2023 12:55 pm CLINICAL HISTORY: AMS Headache, drowsiness COMPARISON: Head Brain Wo Cont dated 11/19/2021; Head Brain Wo Cont dated 06/03/2019 TECHNIQUE: All CT scans are performed using dose optimization technique as appropriate and may inclu de automated exposure control or mA/KV adjustment according to patient size. FINDINGS: There is motion artifact present. This mildly limits assessment. There is also significant streak artifact related to foreign bodies in the soft tissues. No intracranial hemorrhage, hydroceph alus or extra-axial fluid collection.Mild generalized brain issues.No areas of brain edema or evidenc e of midline shift. The paranasal sinuses and mastoids are clear. The calvarium is intact. IMPRESSION: No gross acute intracranial abnormality. There is mild artifact present but the examina tion is felt to be grossly diagnostic.
--- NOTE | 2023-03-19 15:40 | RAD REPORT ---
EXAM DESCRIPTION: RAD - Abdomen Single View - 03/19/2023 2:28 pm CLINICAL HISTORY: DOBHOFF PLACMENT 1ST ATTEMPT , STYLET OUT Pain COMPARISON: Renal Ultrasound-Complete dated 03/11/2023 FINDINGS: Enteric tube tip is most likely in the stomach although somewhat obscured.
--- NOTE | 2023-03-19 15:58 | RAD REPORT ---
EXAM DESCRIPTION: US - Abdomen Exam Limited - 03/19/2023 3:49 pm CLINICAL HISTORY: Abdominal pain. COMPARISON: March 10, 2023 CT FINDINGS: The gallbladder is distended measuring 12 centimeters. It is filled with echogenic materia l probably sludge. Definite gallstone not visualized. Gallbladder wall is not thickened The biliary tree is normal caliber. IMPRESSION: Gallbladder distention filled with sludge
[2023-03-19 16:14] LABS: Blood Morphology Comment NOTED (NOT SEEN); Platelet Estimate ADEQ; Polychromasia 1+; White Blood Cell Scan OK (OK)
[2023-03-19] MEDS: ENSURE HIGH PROTEIN 237 ML CAN PO SCH (16:30)
[2023-03-19 17:52] LABS: Potassium 2.9 mEq/L (3.5-5.1)
--- NOTE | 2023-03-19 17:56 | CON ---
Date of Consultation: 03/19/2023 Reason For Consultation: Atrial fibrillation with rapid ventricular response. History Of Present Illness: An 82-year-old male with history of dyslipidemia and depression, admitte d to ICU for respiratory failure and aspiration pneumonia, went into atrial fibrillation with rapid v entricular response. He was started on a Cardizem drip and he converted to sinus rhythm. He has bee n having ileus problems with nausea and vomiting as well. Past Medical History: As outlined above in the HPI. Medications: Refer to reconciliation sheet for detailed list. Allergies: NO KNOWN DRUG ALLERGIES. Family History: No premature coronary artery disease or cancer. Social History: Does not smoke or drink. Does not use any drugs. Review of Systems: All systems reviewed and they were negative except what mentioned in HPI. Physical Examination: Vital Signs: Temperature is 97.3, pulse 76, breathing at 19, blood pressure 124/46, saturating 98%. General: Pleasant elderly male, in no apparent distress. Head and Neck: Pupils are equal, reactive to light. Intact eye movements. No JVD. No cervical lym phadenopathy. Neck is supple. Thyroid is not enlarged. Lungs: He has rhonchi bilaterally. No accessory muscle use or muscle retraction. Heart: Regular rate and rhythm. No extra sounds. Abdomen: Soft, nontender. Bowel sounds positive. No organomegaly. No masses or hernia. No rigidi ty or rebound. Extremities: No clubbing or cyanosis. Intact pulses. Skin: No rash. Neurologic: Alert, awake. No acute focal deficits appreciated. Investigations: BUN 35, creatinine 1.37. Troponin was negative and NT-proBNP is 1664. Assessment And Recommendations: 1.Elevated troponin, likely demand. Obtain echocardiogram to further evaluate. 2.Atrial fibrillation, converted to sinus rhythm, on Cardizem. Obtain echocardiogram and I recommen d to start metoprolol 25 mg twice a day and he will need anticoagulation with Eliquis start him on 2. 5 mg twice a day for stroke prevention. Thank you for the consult. /BONNYL Voice ID: [id number] Report ID: [id number]
[2023-03-19] MEDS: CEFAZOLIN 1 GM in NA CHLORIDE 0.9% 50 ML IVPB SCH (18:29)
[2023-03-19] MEDS: INSULIN GLARGINE 100 UNIT/ML SQ SCH (18:30)
[2023-03-19] MEDS: KCL 20 MEQ/100 mL IVPB 20 MEQ/100 ML BAG IV SCH ×2 (20:00→21:48)
[2023-03-19] MEDS: TAMSULOSIN 0.4 MG SR CAP PO SCH (20:04)
[2023-03-19] MEDS: PANTOPRAZOLE 40 MG INJ IVP SCH (20:06)
[2023-03-19] MEDS ORDERED: POTASSIUM 25 MEQ EFFERV TAB PO ONE (21:00)
[2023-03-20] MEDS: CEFAZOLIN 1 GM in NA CHLORIDE 0.9% 50 ML IVPB SCH ×2 (00:40→09:01)
[2023-03-20] MEDS: D5W 1,000 ML IV SCH ×2 (02:32→17:44)
--- NOTE | 2023-03-20 03:53 | PN ---
Date of Progress Note: 03/19/2023 Chief Complaint: Acute kidney injury secondary to ATN and obstructive uropathy. Renal function has improved. The patient has postobstructive diuresis and ATN. The patient is on IV fluids. Today, he was found to have hypokalemia and potassium chloride IV was ordered. Review of Systems: Unobtainable. Physical Examination: Lungs: Clear to auscultation bilaterally. Heart: S1, S2. Abdomen: Soft, benign. Extremities: Minimal edema. Impression And Plan: 1.Acute kidney injury secondary to acute tubular necrosis and obstructive uropathy. Renal function overall has improved. Continue to monitor fluid balance. Adjust IV fluids as needed. The patient h as postobstructive polyuria. The patient received DDAVP yesterday. Continue to monitor electrolytes closely. 2.Hematuria. Followup urine cytology and cystoscopy. Urology consultation appreciated. 3.Nephrotic range proteinuria. Workup for proteinuria was ordered and pending. 4.Septic shock, aspiration pneumonia. The patient was extubated on March 18. Continue antibiotics . Cosyntropin stimulation test was negative. There is no evidence of renal insufficiency. 5.Hyponatremia, improved. The patient received DDAVP. Continue IV hydration. 6.Hypokalemia. Potassium treatment for replacement. 7.Hypomagnesemia. Magnesium repletion as needed. EB/MODL Voice ID: [id number] Report ID: [id number]
[2023-03-20 05:05] LABS: Absolute Lymphocytes (CBC) 1.1 K/uL (0.7-4.9); Hematocrit 26.4 % (39.6-49.0); Lymphocytes % 8.5 % (15.3-44.8); MCV 87.7 fL (80-100); RBC Red Blood Cell Count 3.01 M/uL (4.33-5.43)
[2023-03-20 05:09] LABS: Protime INR 1.16
[2023-03-20 05:25] LABS: Albumin 1.8 g/dL (3.4-5.0); Bilirubin Total 0.8 mg/dL (0.2-1.0); Magnesium 1.9 mg/dL (1.6-2.4); Phosphorus 1.7 mg/dL (2.5-4.9); Potassium 3.7 mEq/L (3.5-5.1); Protein, Total 6.2 g/dL (6.4-8.2)
[2023-03-20] MEDS ORDERED: POTASSIUM PHOS IN 0.9 % NACL 15 MMOL/250 ML BAG IV ONE (06:00)
[2023-03-20] MEDS: INSULIN -REGULAR HUMAN 50 UNIT/0.5 ML ML SQ SCH ×5 (06:00→21:06)
[2023-03-20] MEDS: ENSURE HIGH PROTEIN 237 ML CAN PO SCH ×4 (07:30→21:06)
[2023-03-20] MEDS: JUVEN PACKET PO SCH ×2 (08:27→21:04)
[2023-03-20] MEDS: PANTOPRAZOLE 40 MG INJ IVP SCH ×3 (09:01→21:06)
[2023-03-20] MEDS: SOD FERRIC GLUC COMPLX/SUCROSE 125 MG in NA CHLORIDE 0.9% 100 ML IV SCH ×2 (09:02→21:07)
[2023-03-20] MEDS ORDERED: LIDOCAINE 1% MPF 5 ML VIAL ONE (12:25)
[2023-03-20] MEDS ORDERED: propofoL 200 MG/20 ML VIAL IV ONE (12:25)
[2023-03-20] MEDS: NA CHLORIDE 0.9% 500 ML ONE (12:45)
[2023-03-20] MEDS ORDERED: FLUCONAZOLE 100 MG TAB FT ONE (14:45)
--- NOTE | 2023-03-20 15:53 | CON ---
Date of Consultation: 03/20/2023 Reason For Consultation: Hematemesis, coffee-grounds emesis with anemia. History Of Present Illness: The patient is an 82-year-old Afro-[place]ian male with history of hyperli pidemia, generalized anxiety disorder, depression. The patient presented to the hospital with hypern atremia and acute renal failure. The patient was intubated due to respiratory failure as well. Upon extubation, the patient had some coffee-grounds emesis. The patient had anemia, though he also has gross hematuria with a possible bladder mass noted as well. Past Medical History: Significant for hyperlipidemia, generalized anxiety disorder, depression, and circumcision in 2022. Medications: At home include Lipitor, calcium with vitamin D3 gummies, , Flomax, Keflex, a nd Tylenol with Codeine, Tylenol No.3. Social History: He lives at home with sister. No tobacco. No alcohol. Family History: Unknown. This patient by himself and minimal communication. Physical Examination: Vital Signs: The patient is 6 feet 4 inches, 208 pounds, BMI 25 kg/sq m. He has a temperature of 98 .4 degrees Fahrenheit, pulse 74, respirations 16, blood pressure 151/55, O2 saturation 100%. General: He is an elderly male, lying in bed, no acute distress. HEENT: Normocephalic, atraumatic. Anicteric. Pupils are equal, round, and reactive to light. Anic teric. Oropharynx clear. Neck: Supple. No masses. Respirations: Diminished breath sounds with some occasional rales with clear coughing. Abdomen: Positive bowel sounds. Soft, nontender, nondistended. No hepatosplenomegaly. Extremities: No clubbing, cyanosis. He has calf and lower extremity edema 1 to 2+ in the lower extr emities. Neuro: He is alert, oriented x1. Somewhat lethargic, but arousable easily. Laboratory Data: The patient has a white count of 13.2 down from 16.2 yesterday. Hemoglobin of 8.6, which is the highest it has been in the past 2 days, but initially was all the way up to 11.6 on Mar. Hematocrit 26.4, MCV of 88, platelet count of 104, polys of 83%, lymphocytes 9%, monocytes 3%. PT of 12.8, INR of 1.2, PTT of 33.7. Chemistry of 147, potassium 3.7, chloride 120, bicarb 24, BUN of 34, creatinine of 1.4, glucose 174, calcium 7.6, phosphorus 1.7, magnesium 1.9, total bilirubin 0. 8, AST of 49, ALT of 60, alkaline phosphatase 795, total protein 6.2, albumin 1.8, cortisol 22.67, al bumin 1.9, total protein 5.5, B12 of 593, beta natriuretic protein at 1664, procalcitonin elevated at 133.45. Urine on the showed 3+ blood, 650 leukocyte esterase, greater than 50 rbc's, greater t thomas 50 white blood cells, squamous epithelial cells none, . CT abdomen and pelvis on March 10 revealed bilateral hydronephroses, gallbladder is thickened related to chronic bladder outlet obs truction, it is also asymmetric typically raising the possibility of mass, wall of the renal pelvis a ppears thickened, cholelithiasis with gallbladder distention, gallbladder distention is noted with sl udge in gallbladder. Impression: 1.Hematemesis, coffee-grounds emesis investigated with upper endoscopy. 2.Anemia. Hemoglobin down to 6.8 on the , now back up to 8.6, on admission was approximately th e highest 11.6. This was felt due to GI bleed, but also gross hematuria noted on urinalysis. The pa tient has 3+ blood and over 50 RBCs in urine for quite some time with a possible gallbladder mass. 3.Acute on chronic renal failure, probable urinary retention noted. 4.Hypernatremia on admission, sodium has come back down to 147 from 175. 5.Thrombocytopenia, platelet count down to 69, unclear etiology. The patient also has protein-calor ie malnutrition with albumin of 1.8. 6.History of hyperlipidemia, anxiety, disorder and depression. Recommendations: 1.Serial H and H, transfuse p.r.n. 2.IV fluids. 3.N.p.o. 4.EGD. 5.Continue PPI therapy. 6.Check prealbumin. 7.Increase tube feeds and Urology consult. RIVER/DANK Voice ID: [id number] Report ID: [id number]
--- NOTE | 2023-03-20 16:49 | P.PN ---
Subjective Date of Service: 03/20/23 Chief Complaint: Respiratory failure Subjective: Other (remains bedbound.) Physical Examination - Vital Signs Temperature: 97.9 F Blood Pressure: 142/58 Pulse: 74 Respirations: 19 Pulse Ox (%): 95 - Physical Exam General: Other (chronically ill-appearing) HEENT: Atraumatic, Normocephalic Neck: Supple, JVD not distended Respiratory: Other (symmetric chest expansion) Cardiovascular: No murmurs Gastrointestinal: Soft and benign, No guarding Musculoskeletal: No clubbing Integumentary: No warmth Neurological: Normal tone Urinary: Other (no bladder distention) External genitalia: Deferred Rectal: Deferred - Studies Medications List Reviewed: Yes Assessment And Plan - Plan # HyperNa Free water deficit 2.5L plus ongoing losses Give IV thiamine x 1 Give D5W gtt 100 cc/hr x 24 hrs Cont tube feeding + water flush same rates #ALIS 2/2 ATN + obstructive uropathy Improved Postobstructive/post ATN diuresis improved Hydration as above # Hematuria, asymmetric bladder thickening F/u urine cytology For cystoscopy at some point # Nephrotic-range proteinuria Random UPCR 6.8 g Follow-up proteinuria workup # Septic shock, aspiration pneumonia Was intubated, extubated on 03/18 Abx F/u cultures Cosyntropin stim test neg. no evidence of adrenal insufficiency. No indication for stress dose steroids. # HypoK Improved KCl repletion prn # HypoMg Improved Mg repletion prn # Anemia Received 2u pRBC ransf on 03/17 Monitor CBC
[2023-03-20] MEDS: METOPROLOL TAR 25 MG TAB PO SCH (17:39)
[2023-03-20] MEDS: CEFAZOLIN SODIUM 2 GM in NA CHLORIDE 0.9% 50 ML IVPB SCH (17:39)
[2023-03-20] MEDS ORDERED: THIAMINE 200 MG/2 ML INJ IVP ONE (17:40)
--- NOTE | 2023-03-20 17:58 | P.PN ---
Subjective Date of Service: 03/20/23 Chief Complaint: Respiratory failure No acute events overnight. His sister, Ms. Martinez, was at bedside, and stated that he is currently at his mental baseline. It is felt that he would benefit from SNF placement; however, nutrition is a concern at this time. Currently, he is getting tube feeds. Plan for EGD with Dr. Ramachandran today to evaluate coffee- ground emesis. He has had no recurrent episodes of hematemesis. Plan to discuss possible PEG-tube placement post-EGD. Per family, no fevers, chills, shortness of breath, chest pain, abdominal pain, nausea/vomiting, hematochezia, melena, or hematuria. Review of Systems 10-point ROS is otherwise unremarkable Neurological: Confusion Physical Examination - Vital Signs Temperature: 97.9 F Blood Pressure: 140/52 Pulse: 74 Respirations: 19 Pulse Ox (%): 95 - Studies Medications List Reviewed: Yes Assessment And Plan - Plan - Physical Exam General: Alert, In no apparent distress, Oriented x1-2 HEENT: Atraumatic, Mucous membr. moist/pink, Other (NG tube in place), Sclerae nonicteric Respiratory: Clear to auscultation bilaterally, Diminished Cardiovascular: No edema, Regular rate/rhythm, No murmurs Gastrointestinal: Normal bowel sounds, Soft, Non-distended, No tenderness, No rebound, No guarding Musculoskeletal: No clubbing Integumentary: No rashes Neurological: Normal speech, Normal affect # Severe Sepsis likely secondary to Methicillin-Sensitive Staphylococcus Aureus Pneumonia He met SIRS criteria based on temperature HR > 90 bpm, RR > 20 breaths/min, WBC > 12,000, and the suspected source is pulmonary. Severe sepsis is suspected due to concern for tissue hypoperfusion/organ dysfunction based on acute respiratory failure requiring intubation, creatinine >2.0 mg/dL (without ESRD), and, lactic acid > 2 mmol/L. - Consulted Infectious Diseases - recommendations appreciated - Sepsis order set was initiated - Chest x-ray (03/15) = "extensive bilateral interstitial and hazy airspace opacities, favoring infectious versus inflammatory process." - Sputum culture = MSSA - Lactate trend: 2.2 -> 2.3 -> 2.2 - Blood cultures drawn - Broad spectrum antibiotics started: Cefazolin - In regards to fluids: - 30 mL/kg of IV fluids was not administered given SBP > 90, MAP > 65, lactic acid < 4 # KDIGO Stage III Acute Kidney Injury due to above # Severe Hypernatremia - improved - Nephrology consulted - recommendations appreciated - Creatinine = 4.6 -> 1.38 - Urinalysis = 3+ blood, 250 leukocyte esterase, > 50 RBCs, > 50 WBCs, 2+ protein - Renal ultrasound = "Mild bilateral hydronephrosis. Markedly distended, with lobulated layering debris. Ferris catheter in place." - Monitor creatinine and urine output - Renally dose medications # Acute on Chronic Anemia with concern for Upper Gastrointestinal Bleed On 03/17, had what appeared to be coffee-ground emesis. His hemoglobin was 6.8 a nd he was given 2 units pRBCS - Consulted Gastroenterology - recommendations appreciated - Plan for EGD with Dr. Ramachandran today - Serial H&H - Transfuse for Hgb < 7.0 - 2 large bore IVs - Pantoprazole 40 mg IV BID - IV fluids per Nephrology # Acute on Chronic Urinary Retention # Gross Hematuria # Penile Lesion - CT abdomen/pelvis = "Mild bilateral hydronephrosis. Perhaps this is related to a chronic bladder outlet obstruction. The wall of bladder is thickened probably related to chronic bladder outlet obstruction. There is also asymmetric thickening of the superior bladder wall which raises the possibility of the mass. Direct visualization would be helpful. The wall of the renal pelves bilaterally appears thickened. This is nonspecific but can be seen with in flammation. Cholelithiasis with gallbladder distention" - Urology consulted - recommendations appreciated - Continue tamsulosin # Cholelithiasis with Gallbladder Distention - RUQ ultrasound = "Gallbladder distention filled with sludge" - Consulted General Surgery - recommendations appreciated # Demand Ischemia (Type II Non-ST Segment Elevation Myocardial Infarction) due to above - Evaluation thus far: - EKG: without STEMI Criteria, trend - Serial troponin: 48.5 -> 62.7 -> 60.1 -> 51.2 - Ordered transthoracic echocardiogram - Management plan: - Consult Cardiology - recommendations appreciated - Hold off on aspirin given concern for GI bleed - If coronary artery disease confirmed, consider starting beta-jeaneth, JANET-inhibitor/ARB, statin with 24 hours Bharath Church M.D.
[2023-03-20] MEDS: INSULIN GLARGINE 100 UNIT/ML SQ SCH (18:06)
[2023-03-20] MEDS: TAMSULOSIN 0.4 MG SR CAP PO SCH (20:48)
[2023-03-21] MEDS: INSULIN -REGULAR HUMAN 50 UNIT/0.5 ML ML SQ SCH ×5 (00:07→23:28)
[2023-03-21] MEDS: CEFAZOLIN SODIUM 2 GM in NA CHLORIDE 0.9% 50 ML IVPB SCH ×3 (00:09→17:24)
[2023-03-21] MEDS: D5W 1,000 ML IV SCH ×3 (04:20→13:13)
[2023-03-21 04:57] LABS: Magnesium 1.8 mg/dL (1.6-2.4); Phosphorus 1.8 mg/dL (2.5-4.9); Potassium 3.7 mEq/L (3.5-5.1)
[2023-03-21 05:45] LABS: Hematocrit 24.4 % (39.6-49.0); Lymphocytes % 9.5 % (15.3-44.8); MCV 88.2 fL (80-100); RBC Red Blood Cell Count 2.76 M/uL (4.33-5.43)
[2023-03-21] MEDS: METOPROLOL TAR 25 MG TAB PO SCH ×2 (05:50→17:25)
--- NOTE | 2023-03-21 07:06 | ECHO ---
HEIGHT: 6 ft 4 in WEIGHT: 209 lb 3.2 oz DATE OF STUDY: 03/20/[address]: Bharath Church MD 2-DIMENSIONAL: YES M.MODE: YES DOPPLER: YES COLOR FLOW: YES TDS: YES PORTABLE: YES DEFINITY: BUBBLE STUDY: DIAGNOSIS: ELEVATED TROPONIN CARDIAC HISTORY: CATHERIZATION: SURGERY: PROSTHETIC VALVE: PACEMAKER: MEASUREMENTS (cm) DIASTOLIC (NORMALS) SYSTOLIC (NORMALS) IVSd 1.1 (0.6-1.2) LA Diam 3.7 (1.9-4.0) LVEF 57% LVIDd 4.1 (3.5-5.7) LVIDs 2.9 (2.0-3.5) %FS 30% LVPWd 1.2 (0.6-1.2) Ao Diam 3.4 (2.0-3.7) 2 DIMENSIONAL ASSESSMENT: RIGHT ATRIUM: NORMAL LEFT ATRIUM: NORMAL RIGHT VENTRICLE: NORMAL LEFT VENTRICLE: NORMAL TRICUSPID VALVE: NORMAL MITRAL VALVE: NORMAL PULMONIC VALVE: NORMAL AORTIC VALVE: NORMAL PERICARDIAL EFFUSION: NONE AORTIC ROOT: NORMAL LEFT VENTRICULAR WALL MOTION: NORMAL LEFT VENTRICULAR SIZE AND FUNCTION DOPPLER/COLOR FLOW: MILD TRICUSPID REGURGITATION COMMENTS: 1. TECHNICALLY DIFFICULT STUDY 2. NORMAL LEFT VENTRICULAR SIZE AND FUNCTION 3. MILD TRICUSPID REGURGITATION. NORMAL RIGHT VENTRICULAR SYSTOLIC PRESSURE TECHNOLOGIST: REENA ECHOLS
[2023-03-21] MEDS: ENSURE HIGH PROTEIN 237 ML CAN PO SCH ×3 (07:30→16:30)
[2023-03-21] MEDS: PANTOPRAZOLE 40 MG INJ IVP SCH ×2 (07:55→20:21)
[2023-03-21] MEDS: FLUCONAZOLE 100 MG TAB FT SCH (07:56)
[2023-03-21] MEDS: JUVEN PACKET PO SCH ×2 (07:56→20:21)
[2023-03-21] MEDS: SOD FERRIC GLUC COMPLX/SUCROSE 125 MG in NA CHLORIDE 0.9% 100 ML IV SCH (09:01)
--- NOTE | 2023-03-21 10:21 | P.PN ---
Subjective Date of Service: 03/21/23 Chief Complaint: Hematemesis, GIB, anemia, respiratory failure Subjective: Improving (No further GI bleeding. Still has hematuria. Tolerating TFs. EGD yesterday -> marilyn esophagitis, gastritis, duodenitis.) Review of Systems 10-point ROS is otherwise unremarkable General: Weakness, Malaise Physical Examination - Vital Signs Temperature: 97.9 F Blood Pressure: 141/56 Pulse: 67 Respirations: 17 Pulse Ox (%): 99 - Physical Exam General: Other (somnolent) HEENT: Atraumatic, Normocephalic, PERRLA, EOMI Neck: Supple Respiratory: Normal air movement Cardiovascular: Normal pulses Gastrointestinal: Soft and benign, No tenderness, No rebound, No guarding - Studies Medications List Reviewed: Yes Assessment And Plan - Current Problems (Diagnosis) (1) Hematemesis Current Visit: Yes Status: Acute (2) GI bleeding Current Visit: Yes Status: Acute (3) Anemia Current Visit: Yes Status: Acute (4) Gastritis Current Visit: Yes Status: Acute (5) Gross hematuria Current Visit: Yes Status: Acute (6) Duodenitis Current Visit: Yes Status: Acute (7) Marilyn esophagitis Current Visit: Yes Status: Acute (8) Thrombocytopenia Current Visit: Yes Status: Acute (9) ALIS (acute kidney injury) Current Visit: Yes Status: Acute (10) Hypernatremia Current Visit: Yes Status: Acute - Plan REC: 1) PPI 2) Diflucan 3) Family to decide on PEG and/or hospice today 4) Continue TFs 5) Urology consult if not done for gross hematuria and possible bladder mass
--- NOTE | 2023-03-21 12:14 | P.PN ---
Subjective Date of Service: 03/21/23 Chief Complaint: Hematemesis, GIB, anemia, respiratory failure Subjective: No new changes Physical Examination - Vital Signs Temperature: 97.9 F Blood Pressure: 141/56 Pulse: 67 Respirations: 17 Pulse Ox (%): 99 - Physical Exam General: Other (chronically ill-appearing) HEENT: Atraumatic, Normocephalic Neck: Supple Respiratory: Other (symmetric chest expansion) Cardiovascular: No rubs, No murmurs Gastrointestinal: Soft and benign, No guarding Musculoskeletal: No clubbing Integumentary: No warmth Neurological: Normal tone Urinary: Other (no bladder distention) External genitalia: Deferred Rectal: Deferred - Studies Medications List Reviewed: Yes Assessment And Plan - Plan #ALIS 2/2 ATN + obstructive uropathy SCr improved to 1.2 Postobstructive/post ATN diuresis improved Hydration as below # HyperNa Improving Free water deficit 2.5L plus ongoing losses D5W gtt 100 cc/hr x 24 hrs Cont tube feeding + water flush same rates # Hematuria, asymmetric bladder thickening F/u urine cytology For cystoscopy at some point # Nephrotic-range proteinuria Random UPCR 6.8 g Follow-up proteinuria workup # Septic shock, aspiration pneumonia Was intubated, extubated on 03/18 Abx F/u cultures Cosyntropin stim test neg. no evidence of adrenal insufficiency. No indication for stress dose steroids. # Esophageal candidiasis Fluconazole # HypoK Improved KCl repletion prn # HypoPO4 Neutraphos x 2 pkts per NGT today # HypoMg Mg 1g IV repletion today # Anemia Received 2u pRBC ransf on 03/17 Monitor CBC
[2023-03-21] MEDS ORDERED: MAGNESIUM SULFATE 1 gm IVPB 1 GM/100 ML BAG IV ONE (13:00)
[2023-03-21] MEDS ORDERED: POTASS/SODIUM PHOSPHATE 1 PKT POWD.PACK PO ONE (13:00)
--- NOTE | 2023-03-21 14:01 | RAD REPORT ---
EXAM DESCRIPTION: Shannon Single View03/21/2023 1:35 pm CLINICAL HISTORY: Shortness breath COMPARISON: March 19, 2023 FINDINGS: Overall no significant change in the mild to moderate bilateral pulmonary opacities. Heart is mildly enlarged. Central venous line place. Feeding tube in the proximal stomach IMPRESSION: No significant change in the mild to moderate bilateral pulmonary opacities which could represent pulmonary edema or pneumonia
--- NOTE | 2023-03-21 15:35 | P.CNS ---
Date of Consult: 03/21/23 Reason for Consult: MSSA PNA Requesting Physician: Bharath Church Chief Complaint: Hematemesis, GIB, anemia, respiratory failure History of Present Illness: Patient is an 82 yo male with a history of hyperlipidemia, depression, blindness who presented to the ED for lower leg swelling and general decline in health status noticed by his family members. Patient recently had circumcision 01/30/2023 and it has been reported that since the surgery, the patient has overall been declining along with decreased oral intake and nonambulatory. . ED workup revealing hypernatremia (Na 171), ALIS (Cr 4.06), hyperglycemia (glucose 225), urinary retention >999 mL, CT abdomen pelvis revealed bilateral hydronephrosis. Patient admitted for acute renal failure, hypernatremia, urinary retention. During hospital course, patient had an aspiration event and was subsequently intubated and transferred to the ICU. Sputum culture growing staph aureus and ID was consulted. Allergies No Known Allergies Allergy (Verified 01/25/23 10:03) Home medications list reviewed: Yes Home Medications: Atorvastatin Calcium [Lipitor*] 20 mg PO BEDTIME 01/25/23 Calcium Phosphate Trib/Vit D3 [Calcium + Vitamin D3 Gummies] 1 each PO DAILY 01/25/23 Sertraline HCl 50 mg PO DAILY 01/25/23 - Past Medical/Surgical History Diabetic: No -: Hyperlipidemia -: Depression/anxiety -: Circumcision 2022 Psychosocial/ Personal History: Patient is at home with his sister who helps care for him - Social History Smoking Status: Unknown if ever smoked Alcohol use: No CD- Drugs: No Caffeine use: Yes Place of Residence: Home Review of Systems is unable to be obtained (altered mental status) Physical Examination Temp Pulse Resp BP Pulse Ox 97.9 F 67 15 129/50 L 98 03/21/23 12:34 03/21/23 13:00 03/21/23 13:00 03/21/23 13:00 03/21/23 13:00 General: In no apparent distress, Oriented x1 HEENT: Atraumatic, Normocephalic, Other (NG tube) Neck: Supple, JVD not distended Respiratory: Normal air movement, Diminished, Other (nonlabored respirations on room air) Gastrointestinal: Normal bowel sounds, Soft and benign, Non-distended Musculoskeletal: No clubbing Integumentary: No rashes, Other (onychomycosis) Urinary: Ferris catheter (xiang colored urine) Laboratory Data - Reviewed Microbiology Data - Reviewed Imagings Data: - XR Chest 03/19: "Mild interstitial pulmonary edema suspected, unchanged. The heart is moderately enlarged. Right-sided venous catheter its tip in the SVC.Enteric tube coils in the stomach. IMPRESSION: Stable chest since 03/18/2023. " Conclusions/Impression: Problem List Severe Sepsis MSSA Pneumonia Acute Kidney Injury Acute on Chronic Anemia Urinary Retention Cholelithiasis Severe PCM Sepsis Pneumonia, MSSA - Aspiration event requiring intubation. Extubated 03/18. - Sputum culture: staph aureus - Currenly on Cefazolin (started 03/18) There were concerns for upper GI bleed, GI consulted. s/p EGD 03/20 with findings of esophageal candidiasis, gastritis and duodenitis. Marilyn esophagitis: On fluconazole (started 03/20) Blood culture 03/19: no growth to date Leukocytosis improving (WBC 10.7). Afebrile. Urinary Retention: Urology following ALIS, Hypernatremia: Nephrology following GI following. Recommendations - Marilyn esophagitis: Continue Fluconazole for 14 days (started 03/20) - MSSA Pneumonia: Continue Cefazolin for at least 7 days (started 03/18). Currently day 4. - Nutritional support via tube feeds - WBC and fever trends ID will continue to follow patient as needed. Case discussed with Nain Anguiano
--- NOTE | 2023-03-21 16:18 | P.PN ---
Subjective Date of Service: 03/21/23 Chief Complaint: Hematemesis, GIB, anemia, respiratory failure He underwent EGD yesterday, without evidence of bleeding. I had a detailed [id number] discussion with his sister, Ms. Martinez, with a particular focus on nutrition. She stated that he would want everything done, including a PEG- tube. Dr. Ramachandran has been notified. Review of Systems 10-point ROS is otherwise unremarkable General: Weakness (generalized) Physical Examination - Vital Signs Temperature: 97.9 F Blood Pressure: 129/50 Pulse: 67 Respirations: 15 Pulse Ox (%): 98 - Studies Medications List Reviewed: Yes Assessment And Plan - Plan - Physical Exam General: Alert, In no apparent distress, Oriented x1-2 HEENT: Atraumatic, Mucous membr. moist/pink, Other (NG tube in place), Sclerae nonicteric Respiratory: Clear to auscultation bilaterally, Diminished Cardiovascular: No edema, Regular rate/rhythm, No murmurs Gastrointestinal: Normal bowel sounds, Soft, Non-distended, No tenderness, No rebound, No guarding Musculoskeletal: No clubbing Integumentary: No rashes Neurological: Normal speech, Normal affect # Severe Sepsis likely secondary to Methicillin-Sensitive Staphylococcus Aureus Pneumonia He met SIRS criteria based on temperature HR > 90 bpm, RR > 20 breaths/min, WBC > 12,000, and the suspected source is pulmonary. Severe sepsis is suspected due to concern for tissue hypoperfusion/organ dysfunction based on acute respiratory failure requiring intubation, creatinine >2.0 mg/dL (without ESRD), and, lactic acid > 2 mmol/L. - Consulted Infectious Diseases - recommendations appreciated - Sepsis order set was initiated - Chest x-ray (03/15) = "extensive bilateral interstitial and hazy airspace opacities, favoring infectious versus inflammatory process." - Sputum culture = MSSA - Lactate trend: 2.2 -> 2.3 -> 2.2 - Blood cultures drawn - Broad spectrum antibiotics started: Cefazolin - In regards to fluids: - 30 mL/kg of IV fluids was not administered given SBP > 90, MAP > 65, lactic acid < 4 # KDIGO Stage III Acute Kidney Injury due to above # Severe Hypernatremia - improved - Nephrology consulted - recommendations appreciated - Creatinine = 4.6 -> 1.23 - Urinalysis = 3+ blood, 250 leukocyte esterase, > 50 RBCs, > 50 WBCs, 2+ protein - Renal ultrasound = "Mild bilateral hydronephrosis. Markedly distended, with lobulated layering debris. Ferris catheter in place." - Monitor creatinine and urine output - Renally dose medications # Acute on Chronic Anemia with concern for Upper Gastrointestinal Bleed On 03/17, had what appeared to be coffee-ground emesis. His hemoglobin was 6.8 and he was given 2 units pRBCS - Consulted Gastroenterology and spoke with Dr. Ramachandran - recommendations appreciated - EGD (03/20/2023) = "multiple areas of yellow-white diffuse plaque were evident in the esophagus. The area of plaque was 2 mm in size. A small hiatal hernia without obstruction was found at the GE junction. Mild striped acute gastritis was seen in the stomach. The gastritis had erythematous and edematous changes. Two cold forceps biopsies were taken. Mild patchy duodenitis was seen in the duodenal bulb and in the second part of the duodenum." - Serial H&H - Transfuse for Hgb < 7.0 - 2 large bore IVs - Pantoprazole 40 mg IV BID - IV fluids per Nephrology # Acute on Chronic Urinary Retention # Gross Hematuria # Penile Lesion - CT abdomen/pelvis = "Mild bilateral hydronephrosis. Perhaps this is related to a chronic bladder outlet obstruction. The wall of bladder is thickened probably related to chronic bladder outlet obstruction. There is also asymmetric thickening of the superior bladder wall which raises the possibility of the mass. Direct visualization would be helpful. The wall of the renal pelves bilaterally appears thickened. This is nonspecific but can be seen with inflammation. Cholelithiasis with gallbladder distention" - Urology consulted - recommendations appreciated - Continue tamsulosin # Cholelithiasis with Gallbladder Distention - RUQ ultrasound = "Gallbladder distention filled with sludge" - Consulted General Surgery - recommendations appreciated # Demand Ischemia (Type II Non-ST Segment Elevation Myocardial Infarction) due to above - Evaluation thus far: - EKG: without STEMI Criteria, trend - Serial troponin: 48.5 -> 62.7 -> 60.1 -> 51.2 - Transthoracic echocardiogram = "1. Technically difficult study. 2. Normal left ventricular size and function. 3. Mild tricuspid regurgitation. Normal right ventricular systolic pressure." - Management plan: - Consult Cardiology - recommendations appreciated - Hold off on aspirin given concern for GI bleed - If coronary artery disease confirmed, consider starting beta-jeaneth, JANET- inhibitor/ARB, statin with 24 hours # High Aspiration Risk # Failure to Thrive - Held extensive [id number] discussion with his sister (stated MPOA), Ms. Martinez. She states that he would want to have everything done, including PEG- tube placement. - Consulted Gastroenterology and notified Dr. Ramachandran - recommendations appreciated Bharath Church M.D.
[2023-03-21] MEDS: INSULIN GLARGINE 100 UNIT/ML SQ SCH (17:28)
--- NOTE | 2023-03-21 18:46 | PN ---
Date of Progress Note: 03/21/2023 Subjective: Seen by bedside. No complaints. Review of Systems: There is no shortness of breath or chest discomfort. The patient is a poor historian. No arrhythmia overnight. Doing well from the cardiac standpoint. Physical Examination: Vital Signs: Reviewed. Head and Neck: Pupils are equal, reactive to light. Intact eye movements. No JVD. Lungs: Clear to auscultation bilaterally. No rhonchi, wheezing, or crackles. Heart: Regular rate and rhythm. No extra sounds. Abdomen: Soft, nontender. Bowel sounds positive. No organomegaly. No masses or hernia. No rigidi ty or rebound. Extremities: No clubbing or cyanosis. Intact pulses. Skin: No rash. Neurologic: Alert, but does not respond very well. Moving all extremities. Lymph Nodes: No cervical or axillary lymphadenopathy. Investigations: BUN 29, creatinine 1.23, and hemoglobin is 7.9. Assessment And Recommendations: Elevated troponin. Again, the patient has very poor quality of life and advanced dementia. At this point, I recommend no further cardiac workup. Continue metoprolol a nd start him on baby aspirin. Cardiology will sign off and the patient can follow up as an outpatien t basis. SR/MODL Voice ID: [id number] Report ID: [id number]
[2023-03-21] MEDS: TAMSULOSIN 0.4 MG SR CAP PO SCH (20:21)
[2023-03-22] MEDS: CEFAZOLIN SODIUM 2 GM in NA CHLORIDE 0.9% 50 ML IVPB SCH ×3 (00:22→17:14)
[2023-03-22 05:10] LABS: Magnesium 1.9 mg/dL (1.6-2.4); Potassium 3.9 mEq/L (3.5-5.1)
[2023-03-22 05:14] LABS: Absolute Lymphocytes (CBC) 1.3 K/uL (0.7-4.9); Hematocrit 23.7 % (39.6-49.0); Lymphocytes % 10.2 % (15.3-44.8); MCV 88.3 fL (80-100); MPV 7.8 fL (7.6-11.3); RBC Red Blood Cell Count 2.69 M/uL (4.33-5.43)
[2023-03-22] MEDS: INSULIN -REGULAR HUMAN 50 UNIT/0.5 ML ML SQ SCH ×3 (05:37→18:00)
[2023-03-22] MEDS: METOPROLOL TAR 25 MG TAB PO SCH ×2 (06:14→18:00)
[2023-03-22] MEDS: ENSURE HIGH PROTEIN 237 ML CAN PO SCH ×3 (07:30→16:30)
[2023-03-22] MEDS: FLUCONAZOLE 100 MG TAB FT SCH (07:48)
[2023-03-22] MEDS: PANTOPRAZOLE 40 MG INJ IVP SCH ×2 (07:48→20:08)
[2023-03-22] MEDS: JUVEN PACKET PO SCH ×2 (07:48→20:09)
[2023-03-22] MEDS: SOD FERRIC GLUC COMPLX/SUCROSE 125 MG in NA CHLORIDE 0.9% 100 ML IV SCH (08:45)
--- NOTE | 2023-03-22 09:14 | P.PN ---
Date of Service: 03/22/23 Chief Complaint: Hematemesis, GIB, anemia, respiratory failure Subjective: No acute events reported overnight Patient seen and examined at bedside. Denies any pain, shortness of breath, nausea or vomiting. Family at bedside. Physical Examination Temp Pulse Resp BP Pulse Ox 97.9 F 67 17 141/56 H 99 03/22/23 06:37 03/22/23 06:37 03/22/23 06:37 03/22/23 06:37 03/22/23 06:37 General: In no apparent distress, Oriented x1-2 HEENT: Atraumatic, Normocephalic, Dobhoff tube left nare Neck: Supple, JVD not distended Respiratory: Normal air movement, Nonlabored respirations, breathing comfortably on room air. Gastrointestinal: Normal bowel sounds, Soft and benign, Non-distended Musculoskeletal: No clubbing Integumentary: No rashes. Onychomycosis Urinary: Ferris catheter Neuro: Blind both eyes Laboratory Data - Reviewed Microbiology Data - Reviewed Imagings Data: - XR Chest 03/19: "Mild interstitial pulmonary edema suspected, unchanged. The heart is moderately enlarged. Right-sided venous catheter its tip in the SVC.Enteric tube coils in the stomach. IMPRESSION: Stable chest since 03/18/2023. " Medications List: Reviewed Assessment and Plan Problem List Severe Sepsis MSSA Pneumonia Acute Kidney Injury Acute on Chronic Anemia Urinary Retention Cholelithiasis Severe PCM Sepsis Pneumonia, MSSA - Aspiration event requiring intubation 03/15. Extubated 03/18. - Sputum culture 03/15: Staphylococcus aureus - Currently on Cefazolin (started 03/18) Esophageal Candidiasis - s/p EGD 03/20 with findings of esophageal candidiasis, gastritis and duodenitis. - On fluconazole (started 03/21) Blood culture 03/19: no growth to date Leukocytosis improving (WBC 10.7). Afebrile. Urinary Retention: Urology following ALIS, Hypernatremia: Nephrology following GI following. Recommendations - Marilyn esophagitis: Continue Fluconazole for 14 days (started 03/21). - On day 2 of 14. - MSSA Pneumonia: Continue Cefazolin for at least 7 days (started 03/18). - On day 5 - Continue nutritional support via tube feeds - WBC and fever trends Plan for PEG tube placement today. ID will continue to follow patient as needed. Case discussed with Nain Anguiano
--- NOTE | 2023-03-22 12:30 | P.PN ---
Subjective Date of Service: 03/22/23 Chief Complaint: Hematemesis, GIB, anemia, respiratory failure This morning, he is much more awake. He is alert and oriented x 1. Per discussion with family, they state that a PEG-tube is most consistent with his wishes. Spoke with Dr. Ramachandran, who is planning to have PEG-tube placed this afternoon. Review of Systems is unable to be obtained General: Weakness (generalized) Physical Examination - Vital Signs Temperature: 97.3 F Blood Pressure: 126/48 Pulse: 66 Respirations: 18 Pulse Ox (%): 97 - Studies Medications List Reviewed: Yes Assessment And Plan - Plan - Physical Exam General: Alert, In no apparent distress, Oriented x1 HEENT: Atraumatic, Mucous membr. moist/pink, Other (NG tube in place), Sclerae nonicteric Respiratory: Clear to auscultation bilaterally, Diminished Cardiovascular: No edema, Regular rate/rhythm, No murmurs Gastrointestinal: Normal bowel sounds, Soft, Non-distended, No tenderness Musculoskeletal: No clubbing Integumentary: No rashes Neurological: Normal speech, Normal affect # Severe Sepsis likely secondary to Methicillin-Sensitive Staphylococcus Aureus Pneumonia He met SIRS criteria based on temperature HR > 90 bpm, RR > 20 breaths/min, WBC > 12,000, and the suspected source is pulmonary. Severe sepsis is suspected due to concern for tissue hypoperfusion/organ dysfunction based on acute respiratory failure requiring intubation, creatinine >2.0 mg/dL (without ESRD), and, lactic acid > 2 mmol/L. - Consulted Infectious Diseases - recommendations appreciated - Sepsis order set was initiated - Chest x-ray (03/15) = "extensive bilateral interstitial and hazy airspace opacities, favoring infectious versus inflammatory process." - Sputum culture = MSSA - Lactate trend: 2.2 -> 2.3 -> 2.2 - Blood cultures drawn - Broad spectrum antibiotics started: Cefazolin - In regards to fluids: - 30 mL/kg of IV fluids was not administered given SBP > 90, MAP > 65, lactic acid < 4 # KDIGO Stage III Acute Kidney Injury due to above # Severe Hypernatremia - improved - Nephrology consulted - recommendations appreciated - Creatinine = 4.6 -> 1.05 - Urinalysis = 3+ blood, 250 leukocyte esterase, > 50 RBCs, > 50 WBCs, 2+ protein - Renal ultrasound = "Mild bilateral hydronephrosis. Markedly distended, with lobulated layering debris. Ferris catheter in place." - Monitor creatinine and urine output - Renally dose medications # Acute on Chronic Anemia with concern for Upper Gastrointestinal Bleed with Marilyn Esophagitis On 03/17, had what appeared to be coffee-ground emesis. His hemoglobin was 6.8 and he was given 2 units pRBCS - Consulted Gastroenterology and spoke with Dr. Ramachandran - recommendations appreciated - EGD (03/20/2023) = "multiple areas of yellow-white diffuse plaque were evident in the esophagus. The area of plaque was 2 mm in size. A small hiatal hernia without obstruction was found at the GE junction. Mild striped acute gastritis was seen in the stomach. The gastritis had erythematous and edematous changes. Two cold forceps biopsies were taken. Mild patchy duodenitis was seen in the duodenal bulb and in the second part of the duodenum." - Serial H&H - Transfuse for Hgb < 7.0 - 2 large bore IVs - Pantoprazole 40 mg IV BID - IV fluids per Nephrology - Continue fluconazole per ID # Acute on Chronic Urinary Retention # Gross Hematuria # Penile Lesion - CT abdomen/pelvis = "Mild bilateral hydronephrosis. Perhaps this is related to a chronic bladder outlet obstruction. The wall of bladder is thickened probably related to chronic bladder outlet obstruction. There is also asymmetric thickening of the superior bladder wall which raises the possibility of the mass. Direct visualization would be helpful. The wall of the renal pelves bilaterally appears thickened. This is nonspecific but can be seen with inflammation. Cholelithiasis with gallbladder distention" - Urology consulted - recommendations appreciated - Continue tamsulosin # Cholelithiasis with Gallbladder Distention - RUQ ultrasound = "Gallbladder distention filled with sludge" - Consulted General Surgery - recommendations appreciated # Demand Ischemia (Type II Non-ST Segment Elevation Myocardial Infarction) due to above - Evaluation thus far: - EKG: without STEMI Criteria, trend - Serial troponin: 48.5 -> 62.7 -> 60.1 -> 51.2 - Transthoracic echocardiogram = "1. Technically difficult study. 2. Normal left ventricular size and function. 3. Mild tricuspid regurgitation. Normal right ventricular systolic pressure." - Management plan: - Consult Cardiology - recommendations appreciated - Hold off on aspirin given concern for GI bleed - If coronary artery disease confirmed, consider starting beta-jeaneth, JANET- inhibitor/ARB, statin with 24 hours # High Aspiration Risk # Failure to Thrive - Held extensive [id number] discussion with his sister (stated MPOA), Ms. Martinez. She states that he would want to have everything done, including PEG- tube placement. - Consulted Gastroenterology and notified Dr. Ramachandran - recommendations appreciated - Plan for PEG-tube this afternoon Bharath Church M.D.
--- NOTE | 2023-03-22 14:00 | P.CNS ---
Date of Consult: 03/22/23 PC: I was asked to see this patient in regards to a distended gallbladder with gallstones. HPC: Patient was admitted with abdominal pain aspiration pneumonia, borderline renal disease. Also has bladder issues as well as chronic malnutrition and a CT scan that demonstrates distended gallbladder with gallstones. PMHx: [] Social Hx: [] Sys R: [] O/E: [] HEENT: [] Chest: [] Abd: [] [place]: [] Data: [] Impression: [] Plan: [] Patient History Reason for admission: Hematemesis, GIB, anemia, respiratory failure Allergies No Known Allergies Allergy (Verified 01/25/23 10:03) Home Medications: Atorvastatin Calcium [Lipitor*] 20 mg PO BEDTIME 01/25/23 Calcium Phosphate Trib/Vit D3 [Calcium + Vitamin D3 Gummies] 1 each PO DAILY 01/25/23 Sertraline HCl 50 mg PO DAILY 01/25/23 - Past Medical/Surgical History Has patient received pneumonia vaccine in the past: No Diabetic: No -: Hyperlipidemia -: Depression/anxiety -: Circumcision 2022 Psychosocial/ Personal History: Patient is at home with his sister who helps care for him - Social History Alcohol use: No CD- Drugs: No Caffeine use: Yes Place of Residence: Home
--- NOTE | 2023-03-22 14:04 | P.CNS ---
Date of Consult: 03/22/23 PC: I was asked to evaluate this 82-year-old male who is distended gallbladder with gallstones. HPC: Patient is been in the hospital for the last few weeks. Apparently he had aspiration. He also is hyperal albuminemia, malnutrition, and is going today for a G-tube. He has not had substantial oral intake as he is unable to maintain himself, and a G-tube has been ordered. PMHx: Has been reviewed, from numerous consultants as well. Social Hx: No known allergies O/E: Patient is awake alert. HEENT: Not jaundiced Chest: Chest movement equal bilaterally Abd: Nontender at the moment, no masses felt in the right upper quadrant [place]: Intact Data: CT scan demonstrates distended gallbladder with stones. No evidence of any acute inflammation. His liver enzymes have been within normal limits. Impression: Patient has distended gallbladder with gallstones, however no acute evidence of acute cholecystitis cholelithiasis. He has not been eating so this is not an unusual finding. Plan: We will continue to observe, but does not require surgical intervention at that time.
--- NOTE | 2023-03-22 15:08 | RAD REPORT ---
EXAM DESCRIPTION: RAD - Abdomen 1 View (KUB) - 03/22/2023 3:01 pm CLINICAL HISTORY: dobhoff placement, pt pulled Pain COMPARISON: <Comparisons> FINDINGS: Enteric tube is coiled in the stomach.
[2023-03-22] MEDS: D5W 1,000 ML IV SCH ×3 (15:17→23:20)
[2023-03-22] MEDS ORDERED: NA CHLORIDE 0.9% 1,000 ML ONE (17:18)
[2023-03-22] MEDS ORDERED: propofoL 200 MG/20 ML VIAL IV ONE (17:21)
[2023-03-22] MEDS ORDERED: LIDOCAINE 1% MPF 5 ML VIAL ONE (17:52)
[2023-03-22] MEDS: INSULIN GLARGINE 100 UNIT/ML SQ SCH (18:00)
[2023-03-22] MEDS: TAMSULOSIN 0.4 MG SR CAP PO SCH (20:09)
[2023-03-23] MEDS: INSULIN -REGULAR HUMAN 50 UNIT/0.5 ML ML SQ SCH ×4 (00:30→18:00)
[2023-03-23] MEDS: CEFAZOLIN SODIUM 2 GM in NA CHLORIDE 0.9% 50 ML IVPB SCH ×3 (01:20→16:40)
--- NOTE | 2023-03-23 03:54 | PN ---
Date of Progress Note: 03/22/2023 Chief Complaint: Acute kidney injury and cardiorenal syndrome. The patient remains in ICU. The pat ient had hematemesis, anemia, respiratory failure. Review of Systems: Unobtainable. Physical Examination: Lungs: Clear to auscultation bilaterally. Heart: S1, S2. Abdomen: Soft, benign. Extremities: No edema. Impression And Plan: 1.Acute kidney injury secondary to ATN and obstructive uropathy. Serum creatinine has improved. Th e patient appears to be hypovolemic. Plan is to resume IV fluids. The patient is to have PEG tube p lacement today. Postobstructive diuresis with polyuria. The patient was found to have hyponatremia and received D5W 100 cc per 24 hours. Currently, he is on tube feeding and water flushes. He will c ontinue D5 IV fluids when he is to be prepared for surgery and he is hypovolemic. 2.Hematuria. Symmetric bladder thickening. The patient will need Urology consultation, nephrotic r iftikhar proteinuria. Random urine protein creatinine ratio was 6.8. Follow up on proteinuria workup. Workup is pending. 3.Septic shock, pneumonia. The patient was intubated and extubated on March 18. Continue antibiot ic. 4.Esophageal candidiasis, on fluconazole. 5.Hypokalemia. Potassium chloride was ordered for treatment of hypokalemia. 6.Hypophosphatemia. The patient was receiving Neutra-Phos per NG tube for treatment of hypophosphat emia. 7.Hypomagnesemia. Magnesium sulfate IV 1 g the patient received yesterday. Continue to follow up o n magnesium level. EB/MODL Voice ID: [id number] Report ID: [id number]
[2023-03-23 05:06] LABS: Absolute Lymphocytes (CBC) 0.7 K/uL (0.7-4.9); Hematocrit 24.9 % (39.6-49.0); Lymphocytes % 3.7 % (15.3-44.8); MCV 88.6 fL (80-100); MPV 7.7 fL (7.6-11.3); RBC Red Blood Cell Count 2.81 M/uL (4.33-5.43)
[2023-03-23 05:21] LABS: Potassium 3.9 mEq/L (3.5-5.1)
[2023-03-23] MEDS: METOPROLOL TAR 25 MG TAB PO SCH ×2 (05:46→16:41)
[2023-03-23] MEDS: D5W 1,000 ML IV SCH ×2 (05:56→16:40)
[2023-03-23] MEDS ORDERED: KCL 20 MEQ/100 mL IVPB 20 MEQ/100 ML BAG IV SCH (06:00)
[2023-03-23 06:13] VITALS: BMI 25.2
[2023-03-23] MEDS: ENSURE HIGH PROTEIN 237 ML CAN PO SCH (07:30)
[2023-03-23] MEDS: FLUCONAZOLE 100 MG TAB FT SCH (08:32)
[2023-03-23] MEDS: JUVEN PACKET PO SCH ×2 (08:32→20:13)
--- NOTE | 2023-03-23 08:34 | P.PN ---
Date of Service: 03/23/23 Chief Complaint: Hematemesis, GIB, anemia, respiratory failure Subjective: s/p PEG tube placement yesterday 03/22. Patient resting comfortably in bed. NAD. No acute events reported overnight. Physical Examination Temp Pulse Resp BP Pulse Ox 97.5 F 65 19 116/45 L 97 03/23/23 08:00 03/23/23 08:00 03/23/23 08:00 03/23/23 08:00 03/23/23 08:00 General: In no apparent distress, Oriented x1 HEENT: Atraumatic, Normocephalic. Neck: Supple, JVD not distended Respiratory: Normal air movement, Nonlabored respirations, breathing comfortably on room air. Gastrointestinal: Normal bowel sounds, Soft and benign, Non-distended. PEG tube. Musculoskeletal: No clubbing Integumentary: No rashes. Onychomycosis Urinary: Ferris catheter Neuro: Blind both eyes Laboratory Data - Reviewed Microbiology Data - Reviewed Imagings Data: - XR Chest 03/19: "Mild interstitial pulmonary edema suspected, unchanged. The heart is moderately enlarged. Right-sided venous catheter its tip in the SVC.Enteric tube coils in the stomach. IMPRESSION: Stable chest since 03/18/2023. " Medications List: Reviewed Assessment and Plan Problem List Severe Sepsis MSSA Pneumonia Acute Kidney Injury Acute on Chronic Anemia Urinary Retention Cholelithiasis Severe PCM Sepsis Pneumonia, MSSA - Aspiration event requiring intubation 03/15. Extubated 03/18. - Sputum culture 03/15: Staphylococcus aureus - Currently on Cefazolin (started 03/18) Esophageal Candidiasis - s/p EGD 03/20 with findings of esophageal candidiasis, gastritis and duodenitis. - On fluconazole (started 03/21) Blood culture 03/19: no growth to date Afebrile Urinary Retention: Urology following ALIS, Hypernatremia: Nephrology following GI following. Recommendations - Marilyn esophagitis: Continue Fluconazole for 14 days (started 03/21). - Currently on day 3 of 14. - MSSA Pneumonia: Continue Cefazolin for at least 7 days (started 03/18). - Currently on day 6 - Continue nutritional support via tube feeds. s/p PEG tube placement 03/22. - WBC and fever trends ID will continue to follow patient as needed. Case discussed with Nain Anguiano
[2023-03-23] MEDS: SOD FERRIC GLUC COMPLX/SUCROSE 125 MG in NA CHLORIDE 0.9% 100 ML IV SCH (08:37)
[2023-03-23] MEDS: PANTOPRAZOLE 40 MG INJ IVP SCH ×2 (08:38→20:13)
--- NOTE | 2023-03-23 08:38 | RAD REPORT ---
EXAM DESCRIPTION: [place] Single View03/23/2023 8:13 am CLINICAL HISTORY: Leukocytosis COMPARISON: March 21, 2023 FINDINGS: No significant change in the bilateral pulmonary opacities. Heart is mildly enlarged. Central venous line in place Lucency in right lung base IMPRESSION: No significant change in the bilateral pulmonary opacities Lucency right lung base. This is equivocal for pneumoperitoneum. It is recommended that the patient h ave an upright view of the upper abdomen for further evaluation
--- NOTE | 2023-03-23 14:08 | RAD REPORT ---
EXAM DESCRIPTION: RAD - ENTEROSTOMY TUBE CHECK W/CONTR - 03/23/2023 2:00 pm CLINICAL HISTORY: peg placement Abdominal pain COMPARISON: Abdomen Exam Limited dated 03/19/2023 FINDINGS: Two radiographs are submitted. PEG tube was injected with contrast material which is seen filling the stomach indicating appropriate location. No leakage of contrast suspected.
--- NOTE | 2023-03-23 14:27 | P.PN ---
Subjective Date of Service: 03/23/23 Chief Complaint: Hematemesis, GIB, anemia, respiratory failure Subjective: Other (Remains bedbound) Physical Examination - Vital Signs Temperature: 98.8 F Blood Pressure: 111/33 Pulse: 69 Respirations: 15 Pulse Ox (%): 98 - Physical Exam General: Other (chronically ill-appearing) HEENT: Atraumatic, Normocephalic Respiratory: Other (symmetric chest expansion) Cardiovascular: No rubs, No murmurs Gastrointestinal: Soft and benign, No guarding Musculoskeletal: No clubbing Integumentary: No warmth Neurological: Normal tone Urinary: Other (no bladder distention) External genitalia: Deferred Rectal: Deferred - Studies Medications List Reviewed: Yes Assessment And Plan - Plan #ALIS 2/2 ATN + obstructive uropathy SCr improved to 1.0 Postobstructive/post ATN diuresis improved Awaiting PEG tube use Aim for volume intake 2.5L/day or 100 cc/hr. Resume D5W gtt at 100 cc/hr while he is not on tube feeding. # HyperNa Resolved Weight 93.6 kg, total body water 46.8 L D5W gtt 100 cc/hr x 24 hrs Cont tube feeding + water flush same rates # Hematuria, asymmetric bladder thickening F/u urine cytology For cystoscopy at some point # Nephrotic-range proteinuria Random UPCR 6.8 g Follow-up proteinuria workup # Septic shock, aspiration pneumonia Shock resolved Was intubated, extubated on 03/18 Abx F/u cultures Cosyntropin stim test neg. no evidence of adrenal insufficiency. No indication for stress dose steroids. # Esophageal candidiasis Fluconazole NGT removed PEG tube placed. PEG feeding to start soon # HypoK Improved KCl repletion prn # HypoPO4 Phos repletion today # HypoMg Mg repletion prn # Anemia Received 2u pRBC ransf on 03/17 Monitor CBC
[2023-03-23 15:35] LABS: Urine Bacteria None Seen /HPF (<20); Urine Mucus Slight /HPF (None Seen)
[2023-03-23 15:37] LABS: Magnesium 1.8 mg/dL (1.6-2.4); Phosphorus 1.9 mg/dL (2.5-4.9)
[2023-03-23 15:42] LABS: Specific Gravity 1.006 (1.005-1.030); Urine Bilirubin NEGATIVE (Negative); Urine Blood 3+ (OVER) (Negative); Urine Clarity Clear (Clear); Urine Color Colorless (Yellow); Urine Glucose NEGATIVE (Negative); Urine Protein NEGATIVE (Negative); Urine Urobilinogen Normal (Normal); Urine pH 6.5 (5.0-7.0)
--- NOTE | 2023-03-23 16:01 | P.PN ---
Subjective Date of Service: 03/23/23 Chief Complaint: Hematemesis, GIB, anemia, respiratory failure No acute events overnight. He had his PEG-tube placed yesterday evening, without any apparent issues. He has developed leukocytosis, possibly reactive to recent procedure - appreciate Infectious Diseases recs. Ordered repeat chest x-ray and urinalysis. Review of Systems is unable to be obtained Physical Examination - Vital Signs Temperature: 98.8 F Blood Pressure: 111/33 Pulse: 69 Respirations: 15 Pulse Ox (%): 98 - Studies Medications List Reviewed: Yes Assessment And Plan - Plan - Physical Exam General: Alert, In no apparent distress, Oriented x1 HEENT: Atraumatic, Mucous membr. moist/pink, Sclerae nonicteric Respiratory: Clear to auscultation bilaterally, Diminished Cardiovascular: No edema, Regular rate/rhythm, No murmurs Gastrointestinal: Normal bowel sounds, Soft, Non-distended, No tenderness, PEG- tube site is clean, dry, intact Musculoskeletal: No clubbing Integumentary: No rashes Neurological: Normal speech, Normal affect # Severe Sepsis likely secondary to Methicillin-Sensitive Staphylococcus Aureus Pneumonia He met SIRS criteria based on temperature HR > 90 bpm, RR > 20 breaths/min, WBC > 12,000, and the suspected source is pulmonary. Severe sepsis is suspected due to concern for tissue hypoperfusion/organ dysfunction based on acute respiratory failure requiring intubation, creatinine >2.0 mg/dL (without ESRD), and, lactic acid > 2 mmol/L. - Consulted Infectious Diseases and spoke with [employer] - recommendations appreciated - Sepsis order set was initiated - Chest x-ray (03/15) = "extensive bilateral interstitial and hazy airspace opacities, favoring infectious versus inflammatory process." - Sputum culture = MSSA - Lactate trend: 2.2 -> 2.3 -> 2.2 - Blood cultures drawn - Broad spectrum antibiotics started: Cefazolin - In regards to fluids: - 30 mL/kg of IV fluids was not administered given SBP > 90, MAP > 65, lactic acid < 4 # KDIGO Stage III Acute Kidney Injury due to above # Severe Hypernatremia - improved - Nephrology consulted - recommendations appreciated - Creatinine = 4.6 -> 1.05 - Urinalysis = 3+ blood, 250 leukocyte esterase, > 50 RBCs, > 50 WBCs, 2+ protein - Renal ultrasound = "Mild bilateral hydronephrosis. Markedly distended, with lobulated layering debris. Ferris catheter in place." - Monitor creatinine and urine output - Renally dose medications # Acute on Chronic Anemia with concern for Upper Gastrointestinal Bleed with Marilyn Esophagitis On 03/17, had what appeared to be coffee-ground emesis. His hemoglobin was 6.8 and he was given 2 units pRBCS - Consulted Gastroenterology and spoke with Dr. Ramachandran - recommendations appreciated - EGD (03/20/2023) = "multiple areas of yellow-white diffuse plaque were evident in the esophagus. The area of plaque was 2 mm in size. A small hiatal hernia without obstruction was found at the GE junction. Mild striped acute gastritis was seen in the stomach. The gastritis had erythematous and edematous changes. Two cold forceps biopsies were taken. Mild patchy duodenitis was seen in the duodenal bulb and in the second part of the duodenum." - Serial H&H - Transfuse for Hgb < 7.0 - 2 large bore IVs - Pantoprazole 40 mg IV BID - IV fluids per Nephrology - Continue fluconazole per ID # Acute on Chronic Urinary Retention # Gross Hematuria # Penile Lesion - CT abdomen/pelvis = "Mild bilateral hydronephrosis. Perhaps this is related to a chronic bladder outlet obstruction. The wall of bladder is thickened probably related to chronic bladder outlet obstruction. There is also asymmetric thickening of the superior bladder wall which raises the possibility of the mass. Direct visualization would be helpful. The wall of the renal pelves bilaterally appears thickened. This is nonspecific but can be seen with inflammation. Cholelithiasis with gallbladder distention" - Urology consulted - recommendations appreciated - Continue tamsulosin # Cholelithiasis with Gallbladder Distention - RUQ ultrasound = "Gallbladder distention filled with sludge" - Consulted General Surgery - recommendations appreciated # Demand Ischemia (Type II Non-ST Segment Elevation Myocardial Infarction) due to above - Evaluation thus far: - EKG: without STEMI Criteria, trend - Serial troponin: 48.5 -> 62.7 -> 60.1 -> 51.2 - Transthoracic echocardiogram = "1. Technically difficult study. 2. Normal left ventricular size and function. 3. Mild tricuspid regurgitation. Normal right ventricular systolic pressure." - Management plan: - Consult Cardiology - recommendations appreciated - Hold off on aspirin given concern for GI bleed - If coronary artery disease confirmed, consider starting beta-jeaneth, JANET- inhibitor/ARB, statin with 24 hours # High Aspiration Risk # Failure to Thrive - Held extensive [id number] discussion with his sister (stated MPOA), Ms. Martinez. She states that he would want to have everything done, including PEG- tube placement. - Consulted Gastroenterology and notified Dr. Ramachandran - recommendations appreciated - S/P PEG-tube placement on 03/22 Bharath Church M.D.
--- NOTE | 2023-03-23 16:50 | RAD REPORT ---
EXAM DESCRIPTION: RAD - Abdomen Single View - 03/23/2023 4:44 pm CLINICAL HISTORY: pneumoperitoneum Pain COMPARISON: ENTEROSTOMY TUBE CHECK W/CONTR dated 03/23/2023 FINDINGS: The bowel gas pattern is non-obstructive. Mild free air is present. . No suspicious calcif ications. No significant bony findings. IMPRESSION: Mild pneumoperitoneum noted.
[2023-03-23] MEDS: INSULIN GLARGINE 100 UNIT/ML SQ SCH (18:00)
[2023-03-23] MEDS ORDERED: POTASSIUM PHOS IN 0.9 % NACL 15 MMOL/250 ML BAG IV ONE (18:50)
[2023-03-23] MEDS: TAMSULOSIN 0.4 MG SR CAP PO SCH (20:13)
[2023-03-24] MEDS: CEFAZOLIN SODIUM 2 GM in NA CHLORIDE 0.9% 50 ML IVPB SCH ×3 (00:16→17:03)
[2023-03-24] MEDS: D5W 1,000 ML IV SCH ×2 (03:19→13:00)
[2023-03-24 05:15] LABS: Hematocrit 24.8 % (39.6-49.0); Lymphocytes % 7.7 % (15.3-44.8); MCV 89.7 fL (80-100); MPV 7.5 fL (7.6-11.3); RBC Red Blood Cell Count 2.76 M/uL (4.33-5.43)
[2023-03-24 05:30] LABS: Phosphorus 2.6 mg/dL (2.5-4.9); Potassium 4.1 mEq/L (3.5-5.1)
[2023-03-24] MEDS: INSULIN -REGULAR HUMAN 50 UNIT/0.5 ML ML SQ SCH ×4 (05:35→17:01)
[2023-03-24] MEDS: METOPROLOL TAR 25 MG TAB PO SCH ×2 (06:00→17:01)
[2023-03-24 08:20] LABS: Blood Morphology Comment NOT SEEN (NOT SEEN); Platelet Estimate ADEQ; White Blood Cell Scan OK (OK)
[2023-03-24] MEDS: JUVEN PACKET PO SCH ×2 (09:00→20:32)
[2023-03-24] MEDS: GLUCERNA 1.5 CAL 1,000 ML BOT RTH SCH (10:00)
[2023-03-24] MEDS: PANTOPRAZOLE 40 MG INJ IVP SCH ×2 (10:00→20:32)
[2023-03-24] MEDS: FLUCONAZOLE 100 MG TAB FT SCH (10:01)
--- NOTE | 2023-03-24 12:52 | P.PN ---
Subjective Date of Service: 03/24/23 Chief Complaint: Hematemesis, GIB, anemia, respiratory failure Per RN, no acute events overnight. He is A&O x 1. He denies any symptoms. Leukocytosis is improving. Repeat KUB to monitor pneumoperitoneum, which is expect finding post-PEG tube placement. Review of Systems is unable to be obtained Physical Examination - Vital Signs Temperature: 98.8 F Blood Pressure: 111/33 Pulse: 69 Respirations: 15 Pulse Ox (%): 98 - Studies Medications List Reviewed: Yes Assessment And Plan - Plan - Physical Exam General: Alert, In no apparent distress, Oriented x1 HEENT: Atraumatic, Mucous membr. moist/pink, Sclerae nonicteric Respiratory: Clear to auscultation bilaterally, Diminished Cardiovascular: No edema, Regular rate/rhythm, No murmurs Gastrointestinal: Normal bowel sounds, Soft, Non-distended, No tenderness, PEG- tube site is clean, dry, intact Musculoskeletal: No clubbing Integumentary: No rashes Neurological: Normal speech, Normal affect # Severe Sepsis likely secondary to Methicillin-Sensitive Staphylococcus Aureus Pneumonia He met SIRS criteria based on temperature HR > 90 bpm, RR > 20 breaths/min, WBC > 12,000, and the suspected source is pulmonary. Severe sepsis is suspected due to concern for tissue hypoperfusion/organ dysfunction based on acute respiratory failure requiring intubation, creatinine >2.0 mg/dL (without ESRD), and, lactic acid > 2 mmol/L. - Consulted Infectious Diseases and spoke with DRESSER TENDER Sgarbi - recommendations appreciated - Sepsis order set was initiated - Chest x-ray (03/15) = "extensive bilateral interstitial and hazy airspace opacities, favoring infectious versus inflammatory process." - Sputum culture = MSSA - Lactate trend: 2.2 -> 2.3 -> 2.2 - Blood cultures drawn - Broad spectrum antibiotics started: Cefazolin - In regards to fluids: - 30 mL/kg of IV fluids was not administered given SBP > 90, MAP > 65, lactic acid < 4 # KDIGO Stage III Acute Kidney Injury due to above # Severe Hypernatremia - improved - Nephrology consulted - recommendations appreciated - Creatinine = 4.6 -> 1.05 - Urinalysis = 3+ blood, 250 leukocyte esterase, > 50 RBCs, > 50 WBCs, 2+ protein - Renal ultrasound = "Mild bilateral hydronephrosis. Markedly distended, with lobulated layering debris. Ferris catheter in place." - Monitor creatinine and urine output - Renally dose medications # Acute on Chronic Anemia with concern for Upper Gastrointestinal Bleed with Marilyn Esophagitis On 03/17, had what appeared to be coffee-ground emesis. His hemoglobin was 6.8 and he was given 2 units pRBCS - Consulted Gastroenterology and spoke with Dr. Ramachandran - recommendations appreciated - EGD (03/20/2023) = "multiple areas of yellow-white diffuse plaque were evident in the esophagus. The area of plaque was 2 mm in size. A small hiatal hernia without obstruction was found at the GE junction. Mild striped acute gastritis was seen in the stomach. The gastritis had erythematous and edematous changes. Two cold forceps biopsies were taken. Mild patchy duodenitis was seen in the duodenal bulb and in the second part of the duodenum." - Serial H&H - Transfuse for Hgb < 7.0 - 2 large bore IVs - Pantoprazole 40 mg IV BID - IV fluids per Nephrology - Continue fluconazole per ID # Acute on Chronic Urinary Retention # Gross Hematuria # Penile Lesion - CT abdomen/pelvis = "Mild bilateral hydronephrosis. Perhaps this is related to a chronic bladder outlet obstruction. The wall of bladder is thickened probably related to chronic bladder outlet obstruction. There is also asymmetric thickening of the superior bladder wall which raises the possibility of the mass. Direct visualization would be helpful. The wall of the renal pelves bilaterally appears thickened. This is nonspecific but can be seen with inflammation. Cholelithiasis with gallbladder distention" - Urology consulted - recommendations appreciated - Continue tamsulosin # Cholelithiasis with Gallbladder Distention - RUQ ultrasound = "Gallbladder distention filled with sludge" - Consulted General Surgery - recommendations appreciated # Demand Ischemia (Type II Non-ST Segment Elevation Myocardial Infarction) due to above - Evaluation thus far: - EKG: without STEMI Criteria, trend - Serial troponin: 48.5 -> 62.7 -> 60.1 -> 51.2 - Transthoracic echocardiogram = "1. Technically difficult study. 2. Normal left ventricular size and function. 3. Mild tricuspid regurgitation. Normal right ventricular systolic pressure." - Management plan: - Consult Cardiology - recommendations appreciated - Hold off on aspirin given concern for GI bleed - If coronary artery disease confirmed, consider starting beta-jeaneth, JANET- inhibitor/ARB, statin with 24 hours # High Aspiration Risk s/p PEG-tube # Post-PEG tube Pneumoperitoneum # Failure to Thrive - Held extensive [id number] discussion with his sister (stated MPOA), Ms. Martinez. She states that he would want to have everything done, including PEG- tube placement. - Consulted Gastroenterology and notified Dr. Ramachandran - recommendations appreciated - S/P PEG-tube placement on 03/22 - Surveillance KUB to monitor post-PEG tube pneumopertinoeum Bharath Church M.D.
[2023-03-24] MEDS ORDERED: Ringers Lactate 250 ML IV ONE ×2 (13:05→16:46)
--- NOTE | 2023-03-24 14:47 | RAD REPORT ---
EXAM DESCRIPTION: RAD - Abdomen 1 View (KUB) - 03/24/2023 2:08 pm CLINICAL HISTORY: Abdomen pain FINDINGS: The bowel gas pattern is unremarkable. Rectal tube in place Evaluation for pneumoperitoneum is limited on a supine abdominal film. It probably is not increased f rom March 23, 2023. It may be stable or diminished. Better evaluation can be performed with an upright abdominal film.
[2023-03-24] MEDS: INSULIN GLARGINE 100 UNIT/ML SQ SCH (17:11)
[2023-03-24] MEDS: MIDODRINE HCL 5 MG TABLET PO SCH (17:40)
[2023-03-24] MEDS: Ringers Lactate 1,000 ML IV SCH (18:00)
[2023-03-24] MEDS: TAMSULOSIN 0.4 MG SR CAP PO SCH (20:26)
[2023-03-25] MEDS: CEFAZOLIN SODIUM 2 GM in NA CHLORIDE 0.9% 50 ML IVPB SCH ×3 (01:23→17:21)
--- NOTE | 2023-03-25 01:35 | PN ---
Date of Progress Note: 03/24/2023 Chief Complaint: Acute kidney injury due to obstructive uropathy and acute tubular necrosis. Patihussein t has post obstructive diuresis and post ATN diuresis, which overall improved. The patient is on D5W and he developed hypotension. Today received dose of lactated Ringer. Subsequently, continued infu mark with IV fluids was initiated and lactated Ringer was used. D5W was discontinued. The patient w as started on midodrine for blood pressure support. Review of Systems: Patient remains encephalopathic. He has review of systems. Physical Examination: General: Patient is chronically ill appearing. HEENT: Atraumatic, normocephalic. Neck: Supple. No bruits. Lungs: Clear to auscultation bilaterally. Heart: S1, S2. No pericardial friction rub. Abdomen: Soft, benign. No guarding. Extremities: Minimal peripheral edema. Impression And Plan: 1.Acute kidney injury secondary to ATN and obstructive uropathy. Serum creatinine improved to 1.0. Patient had prolonged post obstructive polyuria and polyuria from recovering ATN, the patient requir ed additional fluids with D5W. Continue to adjust fluids according to clinical condition. The patie nt currently is on lactated Ringer to prevent hypotensive episodes. The patient had PEG tube placed he is initiated on enteral feeding. 2.Hypernatremia, well controlled, patient completed D5W infusion. Continue to monitor electrolytes. 3.Hematuria, estimated bladder thickening. The patient had urine cytology. Patient will need cysto scopy and this can be done outpatient in the near future during this hospitalization. Recommend to tiffany stone urologist. 4.Nephrotic range proteinuria. Random urine protein creatinine ratio was 6.8, which corresponds wit h high degree of proteinuria, followup proteinuria, workup pending. 5.Septic shock and aspiration pneumonia; shock resolved. Currently, patient has borderline hypotens ion. Previously, he had cosyntropin test and stimulation test done, and it was negative. There is n o evidence of renal insufficiency. Continue IV fluids and midodrine. 6.Hypokalemia, improved. Continue treatment with potassium chloride and potassium phosphate to cont rol hypokalemia and hypophosphatemia. Monitor magnesium. Continue magnesium sulfate for treatment o f hypomagnesemia. EB/MODL Voice ID: [id number] Report ID: [id number]
[2023-03-25] MEDS: METOPROLOL TAR 25 MG TAB PO SCH ×2 (05:13→17:21)
[2023-03-25 05:17] LABS: Absolute Lymphocytes (CBC) 1.1 K/uL (0.7-4.9); Hematocrit 24.8 % (39.6-49.0); MCV 89.2 fL (80-100); MPV 7.2 fL (7.6-11.3); RBC Red Blood Cell Count 2.78 M/uL (4.33-5.43)
[2023-03-25] MEDS: Ringers Lactate 1,000 ML IV SCH ×3 (05:33→20:40)
[2023-03-25 05:38] LABS: Magnesium 1.5 mg/dL (1.6-2.4); Phosphorus 2.1 mg/dL (2.5-4.9); Potassium 3.8 mEq/L (3.5-5.1)
[2023-03-25] MEDS: INSULIN -REGULAR HUMAN 50 UNIT/0.5 ML ML SQ SCH ×4 (06:00→17:21)
[2023-03-25] MEDS: MIDODRINE HCL 5 MG TABLET PO SCH ×3 (08:38→21:52)
[2023-03-25] MEDS: FLUCONAZOLE 100 MG TAB FT SCH (08:38)
[2023-03-25] MEDS: PANTOPRAZOLE 40 MG INJ IVP SCH ×2 (08:40→21:52)
[2023-03-25] MEDS: JUVEN PACKET PO SCH ×2 (08:40→21:00)
[2023-03-25] MEDS ORDERED: Ringers Lactate 1,000 ML IV SCH (14:00)
--- NOTE | 2023-03-25 16:04 | P.PN ---
Subjective Date of Service: 03/25/23 Chief Complaint: Hematemesis, GIB, anemia, respiratory failure Per RN, no acute events overnight. He is A&O x 1. He denies any symptoms. Leukocytosis continues to improve. Tube feeds have been started. pending SNF placement. Review of Systems is unable to be obtained Physical Examination - Vital Signs Temperature: 98.0 F Blood Pressure: 107/42 Pulse: 68 Respirations: 16 Pulse Ox (%): 99 - Studies Medications List Reviewed: Yes Assessment And Plan - Plan - Physical Exam General: Alert, In no apparent distress, Oriented x1 HEENT: Atraumatic, Mucous membr. moist/pink, Sclerae nonicteric Respiratory: Clear to auscultation bilaterally, Diminished Cardiovascular: No edema, Regular rate/rhythm, No murmurs Gastrointestinal: Normal bowel sounds, Soft, Non-distended, No tenderness, PEG- tube site is clean, dry, intact Musculoskeletal: No clubbing Integumentary: No rashes Neurological: Normal speech, Normal affect # Severe Sepsis likely secondary to Methicillin-Sensitive Staphylococcus Aureus Pneumonia He met SIRS criteria based on temperature HR > 90 bpm, RR > 20 breaths/min, WBC > 12,000, and the suspected source is pulmonary. Severe sepsis is suspected due to concern for tissue hypoperfusion/organ dysfunction based on acute respiratory failure requiring intubation, creatinine >2.0 mg/dL (without ESRD), and, lactic acid > 2 mmol/L. - Consulted Infectious Diseases - recommendations appreciated - Sepsis order set was initiated - Chest x-ray (03/15) = "extensive bilateral interstitial and hazy airspace opacities, favoring infectious versus inflammatory process." - Sputum culture = MSSA - Lactate trend: 2.2 -> 2.3 -> 2.2 - Blood cultures drawn - Broad spectrum antibiotics started: Cefazolin - In regards to fluids: - 30 mL/kg of IV fluids was not administered given SBP > 90, MAP > 65, lactic acid < 4 # KDIGO Stage III Acute Kidney Injury due to above - resolved # Severe Hypernatremia - improved - Nephrology consulted - recommendations appreciated - Creatinine = 4.6 -> 1.05 - Urinalysis = 3+ blood, 250 leukocyte esterase, > 50 RBCs, > 50 WBCs, 2+ protein - Renal ultrasound = "Mild bilateral hydronephrosis. Markedly distended, with lobulated layering debris. Ferris catheter in place." - Monitor creatinine and urine output - Renally dose medications # Acute on Chronic Anemia with concern for Upper Gastrointestinal Bleed with Marilyn Esophagitis On 03/17, had what appeared to be coffee-ground emesis. His hemoglobin was 6.8 and he was given 2 units pRBCS - Consulted Gastroenterology and spoke with Dr. Ramachandran - recommendations appreciated - EGD (03/20/2023) = "multiple areas of yellow-white diffuse plaque were tasha dent in the esophagus. The area of plaque was 2 mm in size. A small hiatal hernia without obstruction was found at the GE junction. Mild striped acute gastritis was seen in the stomach. The gastritis had erythematous and edematous changes. Two cold forceps biopsies were taken. Mild patchy duodenitis was seen in the duodenal bulb and in the second part of the duodenum." - Serial H&H - Transfuse for Hgb < 7.0 - 2 large bore IVs - Pantoprazole 40 mg IV BID - IV fluids per Nephrology - Continue fluconazole per ID - day of # Acute on Chronic Urinary Retention # Gross Hematuria # Penile Lesion - CT abdomen/pelvis = "Mild bilateral hydronephrosis. Perhaps this is related to a chronic bladder outlet obstruction. The wall of bladder is thickened probably related to chronic bladder outlet obstruction. There is also asymmetric thickening of the superior bladder wall which raises the possibility of the mass. Direct visualization would be helpful. The wall of the renal pelves bilaterally appears thickened. This is nonspecific but can be seen with inflammation. Cholelithiasis with gallbladder distention" - Urology consulted - recommendations appreciated - Continue tamsulosin # Cholelithiasis with Gallbladder Distention - RUQ ultrasound = "Gallbladder distention filled with sludge" - Consulted General Surgery - recommendations appreciated Dr. Calderón recommended nonoperative management # Demand Ischemia (Type II Non-ST Segment Elevation Myocardial Infarction) due to above - Evaluation thus far: - EKG: without STEMI Criteria, trend - Serial troponin: 48.5 -> 62.7 -> 60.1 -> 51.2 - Transthoracic echocardiogram = "1. Technically difficult study. 2. Normal left ventricular size and function. 3. Mild tricuspid regurgitation. Normal right ventricular systolic pressure." - Management plan: - Consult Cardiology - recommendations appreciated - Hold off on aspirin given concern for GI bleed - If coronary artery disease confirmed, consider starting beta-jeaneth, JANET- inhibitor/ARB, statin # High Aspiration Risk s/p PEG-tube # Post-PEG tube Pneumoperitoneum # Failure to Thrive - Held extensive [id number] discussion with his sister (stated MPOA), Ms. Martinez. She states that he would want to have everything done, including PEG- tube placement. - Consulted Gastroenterology and notified Dr. Ramachandran - recommendations appreciated - S/P PEG-tube placement on 03/22 - Surveillance KUB to monitor post-PEG tube pneumopertinoeum Bharath Church M.D.
[2023-03-25] MEDS: INSULIN GLARGINE 100 UNIT/ML SQ SCH (17:28)
--- NOTE | 2023-03-25 20:43 | P.PN ---
Date of Service: 03/26/23 Subjective: ROS: 10 point ROS as noted above, otherwise negative Physical Exam: Gen: Alert,orientedx1, NAD HEENT: normal conjunctiva, sclera anicteric CV: regular rate & rhythm, no edema Pulm: non-labored respirations on room air, diminished Abd: soft, non-tender, non-distended MSK: no joint tenderness Neuro: normal speech, normal affect, moves all extremities PEG-tube in place Problem List: 1. Severe Sepsis likely secondary to Methicillin-Sensitive Staphylococcus Aureus Pneumonia 2. KDIGO Stage III ALIS, resolved 3. Severe Hypernatremia, improved 4. Acute on Chronic Anemia with concern for Upper GI Bleed with Marilyn Esophagitis 5. Acute on Chronic Urinary Retention 6. Gross Hematuria 7. Penile Lesion 8. Cholelithiasis with Gallbladder Distention 9. Demand Ischemia (Type II NSTEMI) 10. High Aspiration Risk s/p PEG-tube 11. Post-PEG tube Pneumoperitoneum 12. Failure to Thrive PLAN Sputum culture(03/15): Staph Aureus Blood Culture(03/19): No growth Continue Cefazolin (03/20-) Nephrology consulted Monitor Renal function s/p 2 units pRBC 03/17 GI consulted EGD (03/20/2023): multiple areas of yellow-white diffuse plaque were evident in the esophagus. The area of plaque was 2 mm in size. A small hiatal hernia without obstruction was found at the GE junction. Mild striped acute gastritis was seen in the stomach. The gastritis had erythematous and edematous changes. Mild patchy duodenitis was seen in the duodenal bulb and in the second part of the duodenum. Serial H&H.Transfuse for Hgb < 7.0 Pantoprazole 40 mg IV BID Continue IVF Continue fluconazole (03/21-04/03) x2 weeks per ID Urology consulted Continue tamsulosin RUQ ultrasound: Gallbladder distention filled with sludge General surgery consulted - recommended nonoperative management EKG without STEMI Criteria, troponins mildly elevated x2 Echo: EF: 57%, Technically difficult study, Normal left ventricular size and function, Mild TR Cardiology consulted Hold off on aspirin given concern for GI bleed If coronary artery disease confirmed, consider starting beta-jeaneth, JANET- inhibitor/ARB, statin - Held extensive [id number] discussion with his sister (stated MPOA), Ms. Martinez. She states that he would want to have everything done, including PEG- tube placement. Consulted GI and notified Dr. Ramachandran S/P PEG-tube placement on 03/22 Surveillance KUB to monitor post-PEG tube pneumopertinoeum
--- NOTE | 2023-03-25 21:26 | RAD REPORT ---
EXAM DESCRIPTION: RAD - Abdomen W Erect - 03/25/2023 9:01 pm CLINICAL HISTORY: eval pneumoperitoneum COMPARISON: Abdomen 1 View (KUB) dated 03/24/2023; ENTEROSTOMY TUBE CHECK W/CONTR dated 03/23/2023; Ab domen Single View dated 03/23/2023 FINDINGS/IMPRESSION: Similar to slightly decreased pneumoperitoneum underneath the right hemidiaphra gm. Bowel gas pattern is nonobstructive. Bladder catheter. No fractures.
[2023-03-25] MEDS: TAMSULOSIN 0.4 MG SR CAP PO SCH (21:52)
[2023-03-26] MEDS: CEFAZOLIN SODIUM 2 GM in NA CHLORIDE 0.9% 50 ML IVPB SCH ×2 (00:22→09:03)
--- NOTE | 2023-03-26 00:57 | PN ---
Date of Progress Note: 03/25/2023 Chief Complaint: Acute on chronic kidney injury. History Of Present Illness: The patient had acute kidney injury due to obstructive uropathy and tubular nephropathy. The patient developed postobstructive diuresis and post-acute tubular necrosis diuresis which overall improved. Patient is on lactated Ringer, and when he developed hypotensive episodes, he was started on lactated Ringer and midodrine dose will be increased today to 5 mg 3 times per day to prevent hypotension. Review of Systems: The patient cannot provide review of systems, as he is encephalopathic. Physical Examination: Lungs: Clear to auscultation bilaterally. Heart: S1 and S2. Abdomen: Soft. Extremities: Minimal peripheral edema. Impression And Plan: 1. Acute kidney injury secondary to acute tubular necrosis and obstructive uropathy. Serum creatinine level improved to 1. The patient had prolonged postobstructive polyuria, and polyuria from resoving acute tubular necrosis. Patient required additional fluids with D5W. Monitor renal function. Patient currently on enteral feeding. Continue free water flushes. 2. Hypernatremia, well controlled. Patient completed D5W infusion. Monitor electrolytes. 3. Hematuria and bladder thickening. The patient will need to follow up with Urology for possible cystoscopy. 4. Nephrotic range proteinuria. Urine protein creatinine ratio was 6.8, corresponds to high degree of proteinuria. Follow up for proteinuria pending. 5. Septic shock and aspiration pneumonia; shock resolved. The patient has borderline hypotension. Continue midodrine. He had cosyntropin test and stimulation test done and they were negative. Monitor TSH level. EB/MODL Voice ID: [id number] Report ID: [id number] [facility]ITALGary
[2023-03-26 04:33] LABS: Magnesium 1.5 mg/dL (1.6-2.4); Phosphorus 1.9 mg/dL (2.5-4.9); Potassium 4.5 mEq/L (3.5-5.1); Thyroid Stimulating Hormone 1.69 uIU/mL (0.358-3.740)
[2023-03-26] MEDS: INSULIN -REGULAR HUMAN 50 UNIT/0.5 ML ML SQ SCH ×4 (06:00→18:00)
[2023-03-26] MEDS ORDERED: MAGNESIUM SULFATE 1 gm IVPB 1 GM/100 ML BAG IV ONE ×2 (09:00→21:05)
[2023-03-26] MEDS: POTASS/SODIUM PHOSPHATE 1 PKT POWD.PACK PO SCH (09:02)
[2023-03-26] MEDS: Ringers Lactate 1,000 ML IV SCH (09:02)
[2023-03-26] MEDS: PANTOPRAZOLE 40 MG INJ IVP SCH ×2 (09:03→21:46)
[2023-03-26] MEDS: FLUCONAZOLE 100 MG TAB FT SCH (09:03)
[2023-03-26] MEDS: JUVEN PACKET PO SCH ×2 (09:04→21:47)
[2023-03-26] MEDS: MIDODRINE HCL 5 MG TABLET PO SCH ×3 (09:04→21:46)
--- NOTE | 2023-03-26 10:00 | P.PN ---
Date of Service: 03/26/23 Chief Complaint: Hematemesis, GIB, anemia, respiratory failure Subjective: Patient resting comfortably in bed. Denies any nausea, vomiting or diarrhea. Denies any chest pain, back pain or abdominal pain. Denies any shortness of breath or cough. Family at bedside. Physical Examination Temp Pulse Resp BP Pulse Ox 98.1 F 73 17 106/53 L 100 03/26/23 04:00 03/26/23 04:00 03/26/23 04:00 03/26/23 04:00 03/26/23 04:00 General: In no apparent distress, Oriented x1-2 HEENT: Atraumatic, Normocephalic. Neck: Supple, JVD not distended Respiratory: Normal air movement, Nonlabored respirations, breathing comfortably on room air. Gastrointestinal: Normal bowel sounds, Soft and benign, Non-distended. PEG tube. Musculoskeletal: No clubbing Integumentary: No rashes. Onychomycosis Urinary: Ferris catheter draining yellow urine. Neuro: Blind both eyes Laboratory Data - Reviewed Microbiology Data - Reviewed Imagings Data: - XR Chest 03/19: "Mild interstitial pulmonary edema suspected, unchanged. The heart is moderately enlarged. Right-sided venous catheter its tip in the SVC.Enteric tube coils in the stomach. IMPRESSION: Stable chest since 03/18/2023. " Medications List: Reviewed Assessment and Plan Problem List Severe Sepsis MSSA Pneumonia Acute Kidney Injury Acute on Chronic Anemia Urinary Retention Cholelithiasis Severe PCM Sepsis Pneumonia, MSSA - Aspiration event requiring intubation 03/15. Extubated 03/18. - Sputum culture 03/15: Staphylococcus aureus - On Cefazolin (03/18-03/26) Esophageal Candidiasis - s/p EGD 03/20 with findings of esophageal candidiasis, gastritis and duodenitis. - On fluconazole (started 03/21) Blood culture 03/19: no growth to date Afebrile Urinary Retention: Urology following ALIS, Hypernatremia: Nephrology following GI following. s/p PEG tube placement 03/22. Recommendations - Marilyn esophagitis: Continue Fluconazole for 14 days (started 03/21). - Currently on day 6 of 14. - MSSA Pneumonia: Day 10 on Cefazolin. Discontinue and monitor for worsening signs of infection. - Obtain CBC for tomorrow. Obtain XR Chest tomorrow. - Continue nutritional support via tube feeds. ID will continue to follow patient as needed. Case discussed with Nain Anguiano
[2023-03-26] MEDS: GLUCERNA 1.5 CAL 1,000 ML BOT RTH SCH (11:15)
[2023-03-26] MEDS: INSULIN GLARGINE 100 UNIT/ML SQ SCH (18:19)
[2023-03-26] MEDS: TAMSULOSIN 0.4 MG SR CAP PO SCH (21:00)
[2023-03-26] MEDS ORDERED: POTASSIUM PHOS 10 MM in NA CHLORIDE 0.9% 250 ML IV ONE (21:06)
[2023-03-26 21:14] VITALS: O2SAT 95
--- NOTE | 2023-03-27 03:36 | PN ---
Date of Progress Note: 03/26/2023 Chief Complaint: Acute on chronic kidney injury. Subjective: Patient has acute kidney injury due to obstructive uropathy and tubular nephropathy. Baljit alejandro developed postobstructive diuresis and postacute tubular necrosis diuresis with polyuria, which improved. Patient received IV fluids for blood pressure support. He was on lactated Ringer's to co ntrol borderline hypotension. Patient is on midodrine and midodrine dose was increased to 5 mg 3 mychal es per day. Review of Systems: Unobtainable. Patient is encephalopathic. Physical Examination: Lungs: Clear to auscultation bilaterally. Heart: S1, S2. Abdomen: Soft. Extremities: Minimal peripheral edema. Impression And Plan: 1.Acute kidney injury secondary to acute tubular necrosis and obstructive uropathy. Serum creatinin e level improved to 1. Patient had a prolonged postop obstructive polyuria and polyuria from recover ing acute tubular necrosis. Patient required additional fluids with D5W. Monitor renal function. Kiko bray currently is on PEG feeding with enteral feeding. Continue free water flushes. 2.Hypernatremia, well controlled. Patient completed D5W infusion. Monitor electrolytes. 3.Hematuria and bladder thickening. Patient will follow up with Urology for possible cystoscopy. 4.Nephrotic range proteinuria. Urine creatinine ratio was 6.8, corresponding with high degree of pr oteinuria. Followup for proteinuria is pending. 5.Septic shock and aspiration pneumonia, shock resolved. Patient had borderline hypotension. Reena nue midodrine. The patient had cosyntropin test and stimulation test and they were negative. Monitor TSH level. EB/MODL Voice ID: [id number] Report ID: [id number]
[2023-03-27 04:34] LABS: Magnesium 2.1 mg/dL (1.6-2.4); Phosphorus 2.6 mg/dL (2.5-4.9); Potassium 4.2 mEq/L (3.5-5.1)
[2023-03-27] MEDS: Ringers Lactate 1,000 ML IV SCH (05:45)
[2023-03-27] MEDS: GLUCERNA 1.5 CAL 1,000 ML BOT RTH SCH (05:45)
[2023-03-27] MEDS: INSULIN -REGULAR HUMAN 50 UNIT/0.5 ML ML SQ SCH ×2 (06:00)
[2023-03-27] MEDS: JUVEN PACKET PO SCH (09:00)
[2023-03-27] MEDS: PANTOPRAZOLE 40 MG INJ IVP SCH (09:05)
[2023-03-27] MEDS: FLUCONAZOLE 100 MG TAB FT SCH (09:06)
[2023-03-27] MEDS: MIDODRINE HCL 5 MG TABLET PO SCH (09:06)
--- NOTE | 2023-03-27 09:24 | P.PN ---
Date of Service: 03/27/23 Chief Complaint: Hematemesis, GIB, anemia, respiratory failure Subjective: No new changes. No acute events reported overnight. Denies any new or worsening complaints. Family at bedside. Physical Examination Temp Pulse Resp BP Pulse Ox 98.1 F 74 16 143/66 H 99 03/27/23 08:00 03/27/23 08:00 03/27/23 08:00 03/27/23 08:00 03/27/23 08:00 General: In no apparent distress, Oriented x1 HEENT: Atraumatic, Normocephalic. Neck: Supple, JVD not distended Respiratory: Normal air movement, Nonlabored respirations, breathing comfortably on room air. Gastrointestinal: Normal bowel sounds, Soft and benign, Non-distended. PEG tube. Musculoskeletal: No clubbing Integumentary: No rashes. Onychomycosis Urinary: Ferris catheter draining yellow urine. Neuro: Blind both eyes Studies Laboratory Data - Reviewed Microbiology Data - Urine culture 03/13: No growth to date - Sputum culture 03/15: Staphylococcus aureus - Blood culture 03/19: No growth to date Imagings Data: - XR Chest 03/19: "Mild interstitial pulmonary edema suspected, unchanged. The heart is moderately enlarged. Right-sided venous catheter its tip in the SVC. Enteric tube coils in the stomach. IMPRESSION: Stable chest since 03/18/2023. " Medications List: Reviewed Assessment and Plan Problem List Severe Sepsis MSSA Pneumonia Acute Kidney Injury, Resolved Acute on Chronic Anemia Urinary Retention Cholelithiasis Severe PCM Sepsis Pneumonia, MSSA - Aspiration event requiring intubation 03/15. Extubated 03/18. - Sputum culture 03/15: Staphylococcus aureus - On Cefazolin (03/18-03/26) Esophageal Candidiasis - s/p EGD 03/20 with findings of esophageal candidiasis, gastritis and duodenitis. - On Fluconazole (started 03/21) Urinary Retention: Urology following ALIS, Hypernatremia: Nephrology following GI following. s/p PEG tube placement 03/22. Recommendations - Marilyn esophagitis: Continue Fluconazole for 14 days (started 03/21). - Currently on day 7 of 14. - Completed 10 days of Cefazolin IV (03/18-03/26). - Continue nutritional support via tube feeds. Case discussed with Nain Anguiano
[2023-03-27 10:23] LABS: SARS-CoV-2 Antigen Rapid Res Negative (Negative)
[2023-03-27 12:41] VITALS: BP 115/56; TEMP 97.4
== END 2023-03-27 12:55 | DRG 871 ==
LOC: ER 17:33 → 3RD-ICU 23:02 → 2ND 03-25 18:24
PROVIDERS: ADMIT Hospitalist; ATTEND Hospitalist
PROC: 5A1945Z Respiratory Ventilation, 24-96 Consecutive Hours (ICD-10-PCS; principal; 2023-03-15)
PROC: 0BH17EZ Insertion of Endotracheal Airway into Trachea, Via Natural or Artificial Opening (ICD-10-PCS; 2023-03-15)
PROC: 02HV33Z Insertion of Infusion Device into Superior Vena Cava, Percutaneous Approach (ICD-10-PCS; 2023-03-15)
PROC: 30233N1 Transfusion of Nonautologous Red Blood Cells into Peripheral Vein, Percutaneous Approach (ICD-10-PCS; 2023-03-17)
PROC: 0DB68ZX Excision of Stomach, Via Natural or Artificial Opening Endoscopic, Diagnostic (ICD-10-PCS; 2023-03-20)
PROC: 0DH63UZ Insertion of Feeding Device into Stomach, Percutaneous Approach (ICD-10-PCS; 2023-03-22)
DX: A41.01 Sepsis due to Methicillin susceptible Staphylococcus aureus (principal); E43 Unspecified severe protein-calorie malnutrition; I21.A1 Myocardial infarction type 2; J69.0 Pneumonitis due to inhalation of food and vomit; J96.00 Acute respiratory failure, unspecified whether with hypoxia or hypercapnia; N17.0 Acute kidney failure with tubular necrosis; R65.21 Severe sepsis with septic shock; J15.211 Pneumonia due to Methicillin susceptible Staphylococcus aureus; E87.0 Hyperosmolality and hypernatremia; E87.1 Hypo-osmolality and hyponatremia; N13.8 Other obstructive and reflux uropathy; D62 Acute posthemorrhagic anemia; B37.81 Candidal esophagitis; F43.10 Post-traumatic stress disorder, unspecified; H54.7 Unspecified visual loss; E78.00 Pure hypercholesterolemia, unspecified; E87.6 Hypokalemia; K80.80 Other cholelithiasis without obstruction; K44.9 Diaphragmatic hernia without obstruction or gangrene; D69.6 Thrombocytopenia, unspecified; E86.0 Dehydration; N40.1 Benign prostatic hyperplasia with lower urinary tract symptoms; E83.42 Hypomagnesemia; G72.9 Myopathy, unspecified; K80.20 Calculus of gallbladder without cholecystitis without obstruction; K20.90 Esophagitis, unspecified without bleeding; K29.00 Acute gastritis without bleeding; K29.80 Duodenitis without bleeding; R65.20 Severe sepsis without septic shock; R33.9 Retention of urine, unspecified; R31.0 Gross hematuria; R62.7 Adult failure to thrive; Z74.01 Bed confinement status; Z68.25 Body mass index [BMI] 25.0-25.9, adult; Z20.822 Contact with and (suspected) exposure to COVID-19
CPT/HCPCS: 36415; 36430; 49465; 51702; 70450; 71045; 74018; 74019; 74176; 76377; 76705; 76770; 80048; 80053; 80069; 80076; 81001; 82024; 82140; 82533; 82550; 82570; 82607; 82627; 82805; 82947; 83036; 83540; 83605; 83735; 83880; 83930; 83935; 84100; 84132; 84145; 84156; 84300; 84439; 84443; 84484; 84550; 85014; 85018; 85025; 85044; 85610; 85730; 86850; 86900; 86901; 86920; 87040; 87070; 87077; 87086; 87088; 87186; 87205; 87324; 87811; 88108; 88305; 88312; 92526; 92610; 93005; 93306; 93970; 94002; 94003; 97110; 97163; 97530; 99285; C9113; J0360; J0690; J0696; J0834; J1100; J1630; J1815; J1940; J2001; J2250; J2597; J2704; J2916; J3010; J3411; J3475; J3480; J7030; J7040; J7050; J7120; J7799; P9016; P9047

== ENCOUNTER 2023-04-14 05:48 | Emergency (ER) | payer OTHER ==
--- OUTSIDE RECORDS SUMMARY | 2023-04-14 05:50 | XMS REPORT | Continuity of Care Document ---
:1940 Author Organization [facility] t Address 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 - [facility] accident) accident) [facility] Memory Memory Problem Active Common problem problem [facility] Imbalance Imbalance Problem Active Com mon [facility] Urinary Urinary Problem Active Common incontinen incontinen Sp danita ce, ce, - [facility] unspecifie unspecifie St d type d [facility] Frequent Frequent Problem Active Commo n falls falls [facility] Wandering Wandering Problem Active Com mon [facility] Blindness Blindness Problem Active Com mon of both of both [facility] eyes eyes [facility] 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 Medications Ordered Filled Start Stop Current Ordering Indication Dosage Frequency Signature Comments Components Source Medication Medication Date Date Medication? Clinician (SIG) Name Name Blood Blood Yes Michelle as Common Glucose Glucose 1-09 Millender directed Spirit Test Strip Test Strip 00:00: (DISPENSE - [facility] BLOOD [facility] TEST Medical STRIPS [place] [facility] TO INSURANCE) Lancets Lancets Yes Michelle as Common 09-11 Millender directed Spirit 00:00: (dispense - [facility] lancets [facility] to Medical insurance) Center Blood Blood Yes Michelle as Common Glucose Glucose - Millender directed Spirit Monitor Monitor 00:00: (DISPENSE - BLOOD [facility] MONITOR [facility] TO INSURANCE) Furosemide Furosemide 2018-09 Yes Michelle 1 tablet Common 0-30 Millender as needed Spiri t 00:00: for leg - [facility]I 00 swelling [facility] Lisinopril Lisinopril 2018-09 Yes Michelle 1 tablet Common 0-09 Millender Spirit 00:00: - [facility]I 00 [facility] GlipiZIDE GlipiZIDE Yes Michelle 1 tablet Common Millender [facility] Metformin Metformin Yes Michelle 1 tablet Common HCl HCl Millender with a Spirit [facility] atorvastati atorvastati No Michelle 1 tablet Common n n 01-14 Millender in evening Spi rit 00:00 - CHI :00 [facility] Procedures This patient has no known procedures. Encounters Start End Encounter Admission Attending Care Care Encounter Source Date/Time Date/Time Type Type Clinicians Facility Department ID 2022-11-02 Outpatient Keyshawn [facility] [id number] Common 16:05:00 Nae [id number] [facility] 2021-09-28 Outpatient Anatolyjuan [facility] [id number] Common 11:17:35 Michelle [id number] [facility] 2021-09-28 [facility] [place] [id number] Common 11:17:13 Michelle [id number] [facility] 2021-09-[address] [facility] [id number] Common 11:07:29 Michelle [id number] [facility] 2021-09-[address] [facility] [id number] Common 10:59:22 Michelle [id number] [facility] 2021-09-[address] [facility] [id number] Common 10:59:02 Michelle [id number] [facility] 2023-02-20 2023-02-20 Outpatient [facility] [id number] Pasquale 10:23:57 10:23:57 0620 [facility] 2023-02-14 2023-02-14 Outpatient [facility] [id number] Pasquale 09:35:51 09:35:51 0614 [facility] 2020-05-17 2020-05-17 [facility] [id number] Common 09:20:00 09:20:[address] [facility] 2020-05-17 2020-05-17 Outpatient [facility] [id number] Common 09:00:00 09:00:00 t [facility] [address] Spir [address] Road [facility] 2020-05-13 2020-05-13 Outpatient [facility] [id number] Common 09:46:00 09:46:[address] [facility] 2019-12-11 2019-12-11 Outpatient [facility] [id number] Common 11:30:00 11:30:[address] [facility] 2019-09-11 2019-09-11 Outpatient [facility] [id number] Common 10:30:00 10:30:[address] [facility] 2019-07-13 2019-07-13 Outpatient [facility] [id number] Common 23:31:00 23:31:[address] [facility] 2019-07-02 2019-07-02 Outpatient [facility] [id number] Common 15:00:00 15:00:[address] Spir it [facility] 2019-06-11 2019-06-11 Outpatient Miranda James [id number] Common 09:00:00 09:00:00 [facility] it [facility] Results This patient has no known results.
--- NOTE | 2023-04-14 06:09 | EDPHYS ---
Physician Documentation [facility] Name: Brian Mannnig Jr Age: 82 yrs Sex: Male : 1940 Arrival Date: 04/14/2023 Time: 05:48 Bed 3 Private MD: ED Physician Gabe Fairbanks HPI: 04/14 06:00 This 82 yrs old Black Male presents to ER via Unassigned with complaints of cpr. erin 06:00 Preceding the arrest, the patient was found down by long-term staff. The arrest erin occurred at long-term. Pre-hospital course: The arrest was not witnessed by others. Bystanders at the scene performed CPR. EMS care prior to arrival: initiation of ACLS. The patient has not experienced similar symptoms in the past. Historical: - Allergies: 05:35 No Known Allergies; vc1 - PMHx: 05:35 Anxiety; Blind in Both Eyes; HARD OF HEARING; Hypercholesterolemia; PTSD; vc1 06:43 Acute kidney failure; vc1 - PSHx: 05:35 Peg tube; vc1 - Family history:: not pertinent. - Code Status:: Full code. ROS: 06:00 Unable to obtain ROS due to cpr, unresponsive. erin Exam: 06:00 Eyes: Pupils: are fixed and dilated, eyes in different directions. erin 06:00 Cardiovascular: Rate: actual rate is 0 bpm, Rhythm: asystole, Pulses: not palpable, Heart sounds: none, Edema: is not appreciated. 06:00 Respiratory: Respiratory rate: zero MDM: 05:59 Patient medically screened. erin 06:05 Differential diagnosis: arrythmia, cardiac arrest, respiratory arrest, overdose, renal erin failure. Data reviewed: vital signs, nurses notes. Consideration of Admission/Observation Escalation of care including admission/observation considered. I considered the following discharge prescriptions or medication management in the emergency department Medications were administered in the Emergency Department. See MAR. Independent interpretation of the following test(s) in the Emergency Department air sampling and monitoring: rate is 0 beats/min, Rhythm is asystole, with no ectopy, Interpretation: asystole, Rhythm Strip Interpretation. Test considered but Not performed: Labs: no labs. Historians other than the Patient: EMS: ems , well informed. Care significantly affected by the following chronic conditions: Diabetes, Hypertension, Chronic Kidney Disease. Counseling: I had a detailed discussion with the patient and/or guardian regarding: the historical points, exam findings, and any diagnostic results supporting the discharge/admit diagnosis. Administered Medications: No medications were administered Disposition Summary: 04/14/23 06:08 Patient Location: Home erin Pronouncing Physician: Gabe Fairbanks cha Time of : 05:52 04/14/2023 erin Diagnosis - Cardiac arrest, cause unspecified erin - Acute respiratory failure erin Signatures: Gabe Fairbanks MD MD cha Calcote, Vanessa RN RN vc1
--- NOTE | 2023-04-14 09:19 | ER ---
Nurse's Notes [facility] Name: Brian Manning Jr Age: 82 yrs Sex: Male : 1940 Arrival Date: 04/14/2023 Time: 05:48 Bed 3 Private MD: Diagnosis: Cardiac arrest, cause unspecified;Acute respiratory failure Presentation: 04/14 05:35 Chief complaint: EMS states: Pt is from [facility], they went to check on vc1 him for his dialysis and found him non responsive. Last known well time was 0. Care prior to arrival: Assisted ventilation, Oral intubation, Oral airway placed, 7.5 cm CPR via thumper performed by EMS and is still in progress Medication(s) given: 3 amps of epinephrine, 50 mg NaHCO3 IV initiated. IO inserted in left castellano Oxygen administered. via AMBU bag Glucose check read high. Compressions began prior to arrival. 05:35 Method Of Arrival: EMS: [facility] vc1 05:35 Acuity: COLLEEN 1 vc1 05:35 Transition of care: patient was received from another setting of care (long-term care [facility] facility), [facility]. Historical: - Allergies: 05:35 No Known Allergies; vc1 - PMHx: 05:35 Anxiety; Blind in Both Eyes; HARD OF HEARING; Hypercholesterolemia; PTSD; vc1 06:43 Acute kidney failure; vc1 - PSHx: 05:35 Peg tube; vc1 - Family history:: not pertinent. - Code Status:: Full code. Screenin:35 Abuse screen: Denies threats or abuse. Nutritional screening: pt with peg tube. vc1 Tuberculosis screening: No symptoms or risk factors identified. Assessment: 05:35 CPR assessment: unresponsive, no respiratory effort, intubated, Ambu ventilation, vc1 pulses absent w/ compressions. Cardiac rhythm is asystole. General: Appears unkempt, malnourished, Behavior is unresponsive. Smells of feces. Neuro: Level of Consciousness is unresponsive, Oriented to none. EENT:. Cardiovascular: Rhythm is asystole. Respiratory: Airway via oral intubation. GI: Last BM was April 14, 2023. Pt incontinent to bowel. : Ferris in place to gravity drainage. Derm: Decubitus located on sacrum. 05:35 Reassessment: Pt arrived via EMS at 0535 with thumper performing compressions. Pt had vc1 been unresponsive approximately 25 minutes prior to arrival to the ER. When pt was picked up by EMS asystole was on the monitor. When pt arrived to ER asystole was on monitor, no pulse palpated, 7.[address], pt being ventilated with Ambu bag. 0537 1 amp calcium chloride administered. 1 amp epinephrine administered. 0539 1 amp NaHCO3 administered. 0540 pulse check, no pulse palpated, asystole on monitor, compressions resumed. I amp epinephrine administered. 0542 pulse check, no pulse palpated, asystole on monitor, compressions resumed. 0543 1 amp epinephrine administered followed by pulse check , no pulse palpated, asystole on monitor, compressions resumed. 0545 pulse check, no pulse palpated, asystole on monitor, compressions resumed. 0546 1 amp epinephrine administered. 0549 1 amp epinephrine administered. 0550 pulse check, no pulse palpated, asystole on monitor, compressions resumed. 0552 pulse check, no pulse palpated, asystole on monitor, time of called by Dr. Fairbanks. 09:18 Reassessment: PT JENNIFER WITH MORTUARY TRANSPORT. bp ED Course: 05:35 Arm band placed on left wrist. vc1 05:35 Assisted provider with central line placement. Set up central line tray. unsuccessful vc1 attempt at placing central line. 05:57 Patient arrived in ED. 05:59 Gabe Fairbanks MD is Attending Physician. erin 06:07 Gabe Fairbanks MD is Pronouncing Provider. [facility] 06:30 Sangita Thomas RN is Primary Nurse. vc1 06:35 Triage completed. vc1 Administered Medications: No medications were administered Outcome: 05:52 Outcome Patient vc1 05:52 Patient : Time of 05:52 Pronounced by Gabe Fairbanks MD 05:52 Condition: vc1 09:19 Patient left the ED. bp Signatures: Tori Mendoza, RN Gabe Howard MD MD cha Peltier, Brian, RN RN bp Sangita Thomas RN RN vc1
== END 2023-04-14 09:19 | disposition expired ==
LOC: ER 05:48
DX: I46.9 Cardiac arrest, cause unspecified (principal); J96.00 Acute respiratory failure, unspecified whether with hypoxia or hypercapnia; N17.9 Acute kidney failure, unspecified; E78.00 Pure hypercholesterolemia, unspecified
CPT/HCPCS: 92950; 99285